=== PATIENT | male | born 1945 | race Caucasian/White ===

== ENCOUNTER → 2017-07-12 | Outpatient (CLI) | payer BC ==
[~2017-07-12] MED LIST: ALBU18002 INH; ASPI81TA28 PO; FEXO1TAB49 PO; FLVHFA110 INH; METO-217 PO; NTRGSL/4 UT; PANT40TA PO; PRAS1TAB6 PO; ROSU5TAB PO
--- NOTE | 2017-07-12 13:30 | DIAGNOSTIC IMAGING REPORT ---
CHEST 2 VIEWS ROUTINE HISTORY: 72 years-old Male COUGH acute cough with coronary arterial disease. Asthma COMPARISON: Chest radiograph 01/26/2013 TECHNIQUE: Frontal and lateral views of the chest FINDINGS: Cardiac silhouette is again mildly enlarged. Atherosclerosis of the aorta. No pneumothorax or pleural effusion. Unchanged subsegmental course bibasilar opacities suggest chronic interstitial changes. No lobar airspace consolidation. Mild right hemidiaphragmatic elevation. Lungs are mildly hyperinflated. Degenerative changes of the spine and shoulders. IMPRESSION: Mild hyperinflation without acute cardiopulmonary process. The above report was generated using voice recognition software. It may contain grammatical, syntax or spelling errors. Electronically signed by: Pedro Ann M.D. 07/12/2017 1:29 PM Dictated Date/Time: 07/12/2017 1:27 PM
== END | disposition home or self-care (01) ==
LOC: C.RAD 12:45
PROVIDERS: ATTEND Family Medicine
DX: R05 Cough (principal); J45.991 Cough variant asthma; I25.10 Atherosclerotic heart disease of native coronary artery without angina pectoris

== ENCOUNTER 2017-09-18 03:42 | Emergency (ER) | payer BC ==
[~2017-09-18] VITALS: Ht 165.1 cm; Wt 97.4 kg
[~2017-09-18 03:42] MED LIST changes: -ALBU18002 INH; -ASPI81TA28 PO; -FEXO1TAB49 PO; -FLVHFA110 INH; -NTRGSL/4 UT; -PANT40TA PO
[2017-09-18 03:51] VITALS: Ht 165.1 cm; Wt 97.4 kg
[2017-09-18] MEDS ORDERED: SODIUM CHLORIDE 0.9% 500ML 500 ML IV STA (04:04)
[2017-09-18] MEDS ORDERED: ONDANSETRON INJ 2 MG/ML 2 ML VIAL IV STA (04:04)
[2017-09-18] MEDS ORDERED: MoRPHine SULFATE 4 MG/ML 1 ML CARP\\VIAL IV STA ×2 (04:04→06:52)
[2017-09-18 04:19] LABS: BASO % 0.1 %; BASO ABS # 0.02 K/uL (0-0.2); EOS ABS # 0.16 K/uL (0-0.5); HEMATOCRIT 47.3 % (42-52); HEMOGLOBIN 17.3 g/dL (14.0-18.0); IG# 0.05 K/uL (0.00-0.02); LYMPH % 14.5 %; LYMPH ABS # 2.29 K/uL (1.2-3.4); MEAN CELL VOLUME 90.3 fL (80-100); MEAN CORPUSCULAR HGB CONC 36.6 g/dl (32-36); MEAN PLATELET VOLUME 10.3 fL (7.4-10.4); MONO % 10.9 %; MONO ABS # 1.73 K/uL (0.11-0.59); NEUT % 73.2 %; NEUT ABS # 11.59 K/uL (1.4-6.5); PLATELET COUNT 165 K/uL (130-400); RED CELL DISTRIBUTION WIDTH CV 12.7 % (11.5-14.5); WHITE BLOOD COUNT 15.84 K/uL (4.8-10.8)
[2017-09-18 04:37] LABS: ALBUMIN 3.5 gm/dl (3.4-5.0); CALCIUM 8.7 mg/dl (8.5-10.1); CREATININE 1.03 mg/dl (0.60-1.40); POTASSIUM 3.6 mmol/L (3.5-5.1)
[2017-09-18 04:39] LABS: TOTAL PROTEIN 7.8 gm/dl (6.4-8.2)
[2017-09-18] MEDS ORDERED: METO25TA3 PO (04:51)
[2017-09-18] MEDS ORDERED: AMPICILLIN/SULBACTAM SOD INJ 3,000 MG in SODIUM CHLORIDE 0.9% 100ML 100 ML IV ONE (06:30)
[2017-09-18] MEDS ORDERED: AMOX875T PO (06:37)
[2017-09-18] MEDS ORDERED: HYDR-5688 PO (06:37)
--- NOTE | 2017-09-18 06:41 | EMERGENCY ROOM VISIT NOTE ---
History Report prepared by Kevin: Shiva Celaya Under the Supervision of: Dr. Winsome Dunham M.D. First contact with patient: 03:51 Chief Complaint: ABDOMINAL PAIN Stated Complaint: ABD PAIN History of Present Illness The patient is a 72 year old male who presents to the Emergency Room with complaints of persistent lower abdominal pain beginning yesterday. The patient' s pain radiates into his penis. He states that he urinated a small amount shortly prior to arrival, but hadn't urinated for a while before that. His pain is worsened with laying on his back. The patient has a history of urinary retention occurring once following a surgery. He has no history of kidney stone. He denies any penile or scrotal swelling or rashes. Source of History: patient Onset: Yesterday Position: abdomen (lower) Timing: other (persistent) Modifying Factors (Worsening): other (laying on back) Note: The patient denies any penile or scrotal swelling or rashes. He also complains of pain radiating into his penis. Review of Systems See HPI for pertinent positives & negatives. A total of 10 systems reviewed and were otherwise negative. Past Medical & Surgical Medical Problems: (1) Finger laceration (2) HTN (hypertension) Surgical Problems: (1) H/O heart artery stent Family History No pertinent family history stated. Social History Smoking Status: Never Smoker Marital Status: Housing Status: lives with significant other Occupation Status: employed Current/Historical Medications Scheduled Amoxicillin & Pot Clavulanate (Augmentin 875-125 mg), 875 MG PO BID Aspirin (Aspirin Ec), 81 MG PO DAILY Fexofenadine Hcl (Sheri Allergy), 180 MG PO DAILY Metoprolol Succ (Toprol Xl) (Toprol-Xl), 25 MG PO DAILY Nitroglycerin (Nitrostat), 0.4 MG UT PRN Pantoprazole (Protonix), 40 MG PO DAILY Prasugrel Hcl (Effient), 10 MG PO DAILY Scheduled PRN Albuterol Sulfate (Proair Respiclick), 2 PUFFS INH DAILY PRN for SOB/Wheezing Fluticasone Propionate (Flovent Hfa), 2 PUFFS INH BID PRN for SOB/Wheezing Hydrocodone/Acetaminophen 5MG/325MG ([place] 5MG/325MG), 1 TABLET PO Q6 PRN for Pain Allergies Coded Allergies: Ciprofloxacin (Unverified Allergy, Unknown, ?, 09/18/17) NSAIDs (Unverified Allergy, Unknown, ?, 09/18/17) Physical Exam Vital Signs Date Time Temp Pulse Resp B/P (MAP) Pulse Ox O2 Delivery O2 Flow Rate FiO2 09/18/17 07:55 37.6 92 20 120/82 93 09/18/17 07:38 37.6 92 20 120/82 89 Room Air 09/18/17 07:23 94 09/18/17 06:50 90 20 111/48 94 Room Air 09/18/17 05:37 89 09/18/17 05:34 88 18 161/84 96 Room Air 09/18/17 03:51 37.6 99 20 113/77 94 Room Air Physical Exam Vital signs reviewed. General: Well-appearing male, in no significant distress. HEENT: No scleral icterus, PERRLA, neck supple. Atraumatic. Cardiovascular: Regular rate and rhythm, no extra sounds. Pulmonary: Clear to auscultation bilaterally, normal work of breathing. Abdomen: Obese, tender to palpation in the suprapubic region. No CVA tenderness. Soft, nondistended, positive bowel sounds. Musculoskeletal: Atraumatic, no peripheral edema. Neurologic: Patient awake alert and oriented x 3 Skin: Warm, dry, no rash Medical Decision & Procedures ER Provider Diagnostic Interpretation: Radiology results as stated below per my review and radiologist interpretation: CT ABDOMEN & PELVIS Without Contrast: Liver, gallbladder, spleen, pancreas, and adrenal glands are unremarkable. No hydronephrosis or perinephric stranding. No evidence of radiopaque stones. There is a 7.5 cm exophytic cyst arising from the lateral midpole of the right kidney. There is a 2 cm cortical cyst in the medial lower pole of the right kidney. Normal appendix. No bowl obstruction. There is colonic diverticulosis with acute diverticulitis of the sigmoid colon characterized by wall thickening and pericolic fat stranding. There are a few foci of gas adjacent to the inflamed sigmoid colon which likely represent gas within diverticula. No convincing evidence of free air. No diverticular abscess. Urinary bladder demonstrates mild reactive inflammatory changes along its posterior wall. The prostate is unremarkable. There are no acute osseous findings. Laboratory Results 09/18/17 04:00 Red Blood Count 5.24, Mean Corpuscular Volume 90.3, Mean Corpuscular Hemoglobin 33.0, Mean Corpuscular Hemoglobin Concent 36.6, Mean Platelet Volume 10.3, Neutrophils (%) (Auto) 73.2, Lymphocytes (%) (Auto) 14.5, Monocytes (%) (Auto) 10.9, Eosinophils (%) (Auto) 1.0, Basophils (%) (Auto) 0.1, Neutrophils # (Auto ) 11.59, Lymphocytes # (Auto) 2.29, Monocytes # (Auto) 1.73, Eosinophils # (Auto ) 0.16, Basophils # (Auto) 0.02 09/18/17 04:00 Test 09/18/17 04:00 White Blood Count 15.84 K/uL (4.8-10.8) Red Blood Count 5.24 M/uL (4.7-6.1) Hemoglobin 17.3 g/dL (14.0-18.0) Hematocrit 47.3 % (42-52) Mean Corpuscular Volume 90.3 fL (80-100) Mean Corpuscular Hemoglobin 33.0 pg (25-34) Mean Corpuscular Hemoglobin Concent 36.6 g/dl (32-36) Platelet Count 165 K/uL (130-400) Mean Platelet Volume 10.3 fL (7.4-10.4) Neutrophils (%) (Auto) 73.2 % Lymphocytes (%) (Auto) 14.5 % Monocytes (%) (Auto) 10.9 % Eosinophils (%) (Auto) 1.0 % Basophils (%) (Auto) 0.1 % Neutrophils # (Auto) 11.59 K/uL (1.4-6.5) Lymphocytes # (Auto) 2.29 K/uL (1.2-3.4) Monocytes # (Auto) 1.73 K/uL (0.11-0.59) Eosinophils # (Auto) 0.16 K/uL (0-0.5) Basophils # (Auto) 0.02 K/uL (0-0.2) RDW Standard Deviation 42.0 fL (36.4-46.3) RDW Coefficient of Variation 12.7 % (11.5-14.5) Immature Granulocyte % (Auto) 0.3 % Immature Granulocyte # (Auto) 0.05 K/uL (0.00-0.02) Anion Gap 7.0 mmol/L (3-11) Est Creatinine Clear Calc Drug Dose 68.5 ml/min Estimated GFR () 83.1 Estimated GFR (Non- 71.7 BUN/Creatinine Ratio 19.8 (10-20) Calcium Level 8.7 mg/dl (8.5-10.1) Total Bilirubin 1.0 mg/dl (0.2-1) Direct Bilirubin 0.2 mg/dl (0-0.2) Aspartate Amino Transf (AST/SGOT) 25 U/L (15-37) Alanine Aminotransferase (ALT/SGPT) 49 U/L (12-78) Alkaline Phosphatase 65 U/L (45-117) Total Protein 7.8 gm/dl (6.4-8.2) Albumin 3.5 gm/dl (3.4-5.0) Laboratory results per my review. Medications Administered Medications (Trade) Dose Ordered Sig/Chava Route Start Time Stop Time Status Last Admin Dose Admin Sodium Chloride 500 ml @ 999 mls/hr Q31M STAT IV 09/18/17 04:04 09/18/17 04:34 DC 09/18/17 04:04 999 MLS/HR Morphine Sulfate (MoRPHine SULFATE INJ) 4 mg NOW STAT IV 09/18/17 04:04 09/18/17 04:05 DC 09/18/17 04:17 4 MG Ondansetron HCl (Zofran Inj) 4 mg NOW STAT IV 09/18/17 04:04 09/18/17 04:05 DC 09/18/17 04:17 4 MG Ampicillin Sodium/ Sulbactam Sodium 3000 mg/Sodium Chloride 108 ml @ 200 mls/hr ONE ONCE IV 09/18/17 06:30 09/18/17 07:02 DC 09/18/17 06:47 200 MLS/HR Morphine Sulfate (MoRPHine SULFATE INJ) 4 mg NOW STAT IV 09/18/17 06:52 09/18/17 06:53 DC 09/18/17 06:57 4 MG ED Course 0359: Past medical records reviewed. The patient was evaluated in room B5. A complete history and physical examination was performed. 0404: Ordered Zofran Inj 4 mg IV, Morphine Sulfate 4 mg IV, Sodium Chloride 500 ml @ 999 mls/hr IV. 0630: Ordered Ampicillin Sodium/Sulbactam Sodium 3000 mg/Sodium Chloride 108 ml @ 200 mls/hr IV. 0635: Upon reevaluation, the patient appeared to have improvement of his symptoms. I discussed findings with him. He verbalized agreement of the treatment plan. The patient was discharged home. Medical Decision Differential diagnosis: Etiologies such as appendicitis, diverticulitis, PUD, biliary pathology, UTI, pancreatitis, obstruction, mesenteric ischemia, aortic pathology, infections, inflammatory bowel disease, renal colic, as well as others were entertained. This pt was evaluated and appeared to be in no distress. IV access was obtained and lab work was drawn. Pt was medicated with IV NSS, IV morphine and zofran. CT scan of abd and pelvis reveals acute diverticulitis. Pt was medicated IV unasyn 3 gm. Pt required a second dose of morphine for pain. He was d/c on Augmentin po x 7 days and norco prn. Pt was asked to f/u with his PCP this week and return to the ED for worsening of symptoms or any medical concerns. Medication Reconcilliation Current Medication List: was personally reviewed by me Blood Pressure Screening Patient's blood pressure: Normal blood pressure Blood pressure disposition: Did not require urgent referral Impression Primary Impression: Diverticulitis Scribe Attestation The scribe's documentation has been prepared under my direction and personally reviewed by me in its entirety. I confirm that the note above accurately reflects all work, treatment, procedures, and medical decision making performed by me. Departure Information Dispostion Home / Self-Care Prescriptions Amoxicillin & Pot Clavulanate (Augmentin 875-125 mg) 1 Tab Tab 875 MG PO BID for 7 Days, TAB Prov: Winsome Dunham M.D. 09/18/17 Hydrocodone/Acetaminophen 5MG/325MG ([place] 5MG/325MG) Tab 1 TABLET PO Q6 Y for Pain, #14 TAB Prov: Winsome Dunham M.D. 09/18/17 Referrals Kurtis Carrasco M.D. (PCP) Forms Call Back Authorization, HOME CARE DOCUMENTATION FORM, IMPORTANT VISIT INFORMATION Patient Instructions My [facility] Additional Instructions Diagnosis: Diverticulitis Augmentin 875 mg twice daily for 7 days. [place] 1 tablet every 6 hours as needed for severe pain. Do not drive or take Tylenol with this medication. Please drink plenty of clear fluids. Maintain a bland diet for the next several days and then advance slowly as tolerated. Follow-up with her primary care physician within the next 7-10 days for reevaluation. Return to the ER for worsening of symptoms or any medical concerns.
--- NOTE | 2017-09-18 07:40 | DIAGNOSTIC IMAGING REPORT ---
ABD/PELVIS NO IV OR ORAL CONT CLINICAL HISTORY: 72 years-old Male presenting with kidney stone. TECHNIQUE: Multidetector CT of the abdomen and pelvis was performed without the use of intravenous contrast. IV contrast: None. A dose lowering technique was used consistent with the principles of ALARA (as low as reasonably achievable). COMPARISON: None. CT DOSE (mGy.cm): The estimated cumulative dose is 843.41 mGy.cm. FINDINGS: Manager Materials Management topogram: Unremarkable. Lung bases: Minimal basilar opacities, likely atelectasis. Coronary artery calcification. Normal heart size. No pericardial or pleural effusion. 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 Density consistent with hepatic steatosis. Biliary: No gross biliary ductal dilatation allowing for noncontrast technique. Gallbladder contains gallstones. Pancreas: Normal noncontrast appearance. Spleen: Nonnormal noncontrast appearance. Splenule noted. Adrenal glands: Normal noncontrast appearance. Kidneys and ureters: Prominent exophytic water density well-defined ovoid 8.6 cm lesion arising from the interpolar region of the right kidney likely cyst. Smaller cysts suspected at the right lower pole. These are incompletely evaluated in the absence of intravenous contrast. No nephrolithiasis. No hydronephrosis. Ureters normal. Bladder: Mild circumferential bladder wall thickening allowing for underdistention, likely secondary. Pelvic organs: Prostate and seminal vesicles normal. Bowel: Diverticulosis of the descending and sigmoid colon. Focal wall thickening of the rectosigmoid junction with extensive pericolonic fat stranding. No adjacent fluid collection or convincing evidence of extraluminal gas. Significant peritoneal thickening along the peritoneal reflection as well as fascial thickening along the mesorectal fat. No bowel obstruction. The appendix is normal. Small hiatal hernia. Peritoneal cavity: No free fluid or intraperitoneal gas. Lymph nodes: Numerous subcentimeter retroperitoneal lymph nodes likely reactive. Vasculature: Atherosclerosis of the normal caliber abdominal aorta. Abdominal wall: Diastasis of the rectus abdominis. Postsurgical changes of right inguinal hernia repair. Musculoskeletal: Degenerative changes of the spine. IMPRESSION: 1. Findings consistent with acute uncomplicated diverticulitis at the rectosigmoid junction. No adjacent abscess or free gas. A follow-up sigmoidoscopy/colonoscopy is recommended after treatment to ensure resolution given the overlapping appearance of diverticulitis with neoplasm. No lymphadenopathy or other evidence to suggest neoplasm. 2. Mild circumferential bladder wall thickening is likely secondarily reactive due to adjacent inflammatory change. Electronically signed by: Malcom Jamil M.D. 09/18/2017 7:39 AM Dictated Date/Time: 09/18/2017 7:30 AM
[2017-09-18 07:55] VITALS: BP 120/82; PULSE 92; TEMP 37.6; O2SAT 93
[2018-02-24] MEDS ORDERED: ASPI81TA28 PO (13:33)
[2018-02-24] MEDS ORDERED: FLVHFA110 INH (13:33)
[2018-02-24] MEDS ORDERED: PANT40TA PO (13:33)
[2018-02-24] MEDS ORDERED: FEXO1TAB49 PO (13:33)
[2018-02-24] MEDS ORDERED: ALBU18002 INH (13:33)
[2018-02-24] MEDS ORDERED: NTRGSL/4 UT (13:34)
[2018-02-24] MEDS ORDERED: METO50TA8 PO (20:11)
[2018-02-24] MEDS ORDERED: TRIA1SPR4 NAE (20:11)
[2018-02-27] MEDS ORDERED: CEFD1CAP14 PO (09:12)
== END 2017-09-18 07:57 | disposition home or self-care (01) ==
LOC: C.EDB 03:43
DX: K57.32 Diverticulitis of large intestine without perforation or abscess without bleeding (principal); K57.30 Diverticulosis of large intestine without perforation or abscess without bleeding; I10 Essential (primary) hypertension; Z95.5 Presence of coronary angioplasty implant and graft; Z79.82 Long term (current) use of aspirin

== ENCOUNTER 2019-08-07 14:16 | Inpatient (IN) ==
[2019-08-07] MEDS ORDERED: SODIUM CHLORIDE 0.9% 500 ML IV ONE (14:49)
--- NOTE | 2019-08-07 15:14 | XRay Report ---
XR chest 1V portable HISTORY: 74 years-old Male Chest Pain acute atypical chest pain COMPARISON: Chest radiograph 02/24/2018 TECHNIQUE: Portable AP view of the chest FINDINGS: Cardiac silhouette is enlarged, unchanged. Chronic right hemidiaphragmatic elevation. Patchy asymmetr ic right lung base opacities. No pneumothorax or overt pulmonary edema. No large pleural effusion. Mi nimal left lung base atelectasis. Degenerative changes of the shoulders and spine. IMPRESSION: 1. Cardiomegaly without overt pulmonary edema. 2. Unchanged right hemidiaphragmatic elevation with asymmetric right lung base opacities suggestive o f atelectasis versus pneumonia. The above report was generated using voice recognition software. It may contain grammatical, syntax o r spelling errors. Electronically signed by: Pedro Ann M.D. 08/07/2019 3:13 PM
[2019-08-07] MEDS ORDERED: ALBUT/IPRATROP 3MG/0.5MG NEB 3 ML VIAL NEB STA (15:28)
[2019-08-07] MEDS ORDERED: DEXAMETHASONE SOD PHOSPHATE 10 MG in SYRINGE 0 ML IV STA (15:28)
[2019-08-07] MEDS ORDERED: guaiFENesin 600 MG TABCR PO STA (15:28)
[2019-08-07 15:40] LABS: Hematocrit (blood only) 43.7 % (42-52); Hemoglobin 15.5 g/dL (14.0-18.0); Mean Corpuscular Hemoglobin 31.9 pg (25-34); Mean Corpuscular Hgb Conc 35.5 g/dL (32-36); Mean Corpuscular Volume 89.9 fL (80-100); Mean Platelet Volume 9.5 fL (7.4-10.4); Platelet Count 263 K/uL (130-400); RDW Coefficient of Variation 13.3 % (11.5-14.5); RDW Standard Deviation 43.7 fL (36.4-46.3); Red Blood Count 4.86 M/uL (4.7-6.1); White Blood Count 33.84 K/uL (4.8-10.8)
[2019-08-07 15:42] LABS: Basophils # (auto) 0.03 K/uL (0-0.2); Basophils % (auto) 0.1 %; Immature Granulocytes # (auto) 0.17 K/uL (0.00-0.02); Immature Granulocytes % (auto) 0.5 %; Lymphocytes # (auto) 2.47 K/uL (1.2-3.4); Lymphocytes % (auto) 7.3 %; Monocytes # (auto) 2.92 K/uL (0.11-0.59); Monocytes % (auto) 8.6 %; Neutrophils # (auto) 28.25 K/uL (1.4-6.5); Neutrophils % (auto) 83.5 %
[2019-08-07] MEDS ORDERED: DEXAMETHASONE **PF** INJ 10 MG/ML VIAL ONE (15:43)
[2019-08-07 15:45] LABS: Alanine Aminotransferase 33 U/L (12-78); Albumin Level 2.7 gm/dl (3.4-5.0); Aspartate Aminotransferase 22 U/L (15-37); BUN Creatinine Ratio 21.8 (10-20); Blood Urea Nitrogen 21 mg/dl (7-18); Carbon Dioxide 21 mmol/L (21-32); Chloride 98 mmol/L (98-107); Creatinine Clr Calc Pharmacy 69.8 ml/min; Est GFR (African American) 89.3; Glucose 120 mg/dl (70-99); Lipase 63 U/L (73-393); Magnesium 2.2 mg/dl (1.8-2.4); Potassium 3.7 mmol/L (3.5-5.1); Sodium 130 mmol/L (136-145)
[2019-08-07] MEDS ORDERED: VANCOMYCIN HCL 1,750 MG in SODIUM CHLORIDE 0.9% 500 ML IV ONE (15:45)
[2019-08-07] MEDS ORDERED: VANCOMYCIN CONSULT ACTIVE PRN (15:45)
[2019-08-07] MEDS ORDERED: PIPERACILL/TAZOBAC CONSULT ACTIVE PRN (15:45)
[2019-08-07] MEDS ORDERED: PIPERACILLIN/TAZOBACTAM 4.5 GM/120 ML BAG IV ONE (15:45)
[2019-08-07 15:50] LABS: Albumin Globulin Ratio 0.5 (0.9-2); Alkaline Phosphatase 89 U/L (45-117); Bilirubin,Total 1.6 mg/dl (0.2-1); Globulin 5.2 gm/dl (2.5-4.0); NT Pro B Type Natriuretic Pept 211 pg/ml (0-900); Phosphorus 2.4 mg/dl (2.5-4.9); Total Protein 7.9 gm/dl (6.4-8.2); Troponin I < 0.015 ng/ml (0-0.045)
[2019-08-07] MEDS ORDERED: OPTIRAY 320 125ml IV PRN (16:26)
[2019-08-07] MEDS ORDERED: SODIUM CHLORIDE 0.9% 1000ML 1,000 ML IV ONE (16:32)
[2019-08-07 16:42] LABS: Influenza A virus by PCR Neg for Influ A (Neg); Influenza B virus by PCR Neg for Influ B (Neg)
--- NOTE | 2019-08-07 16:53 | CT Scan Report ---
CT angio chest PE protocol CLINICAL HISTORY: 74 years-old Male presenting with extremely short of breath, atypical chest pain. TECHNIQUE: Multidetector CT angiography of the chest was performed after administration of intravenou s contrast. 3-D volumetric and/or maximum intensity projection (MIP) images were subsequently reconst ructed for review. IV contrast: 118 mL of Optiray 320. One or more dose lowering techniques were used consistent with the principles of ALARA (as low as reasonably achievable), including automatic expos ure control, mA or kV adjustment to individual patient size, and/or use of iterative reconstruction. COMPARISON: Chest x-ray from earlier today and CT of abdomen and pelvis from 09/18/2017. CT DOSE (mGy.cm): The estimated cumulative dose is 485.91 mGycm. FINDINGS: Chemical Processing Technician topogram: Right mid to basilar opacity. Pulmonary vasculature: The study is suboptimal for the assessment of the pulmonary vascular tree secondary to timing of the contrast bolus. No filling defect within the pulmonary arteries to suggest embolus. Main pulmonary ar kim is not enlarged. No flattening of the interventricular septum. No intracardiac filling defect. N o reflux of contrast into the hepatic veins. Remaining chest: Soft tissues: Normal thyroid and thoracic inlet. Several enlarged right internal mammary and right ca rdiophrenic angle lymph nodes are apparent. These are subcentimeter though highly atypical. Atheroscl erosis of the aorta. Normal heart size. Coronary artery calcification. Moderate right pleural effusio n, which is also present within the fissures. This may in part be loculated. No left pleural effusion or pericardial effusion. Pneumobilia noted, new since 2017. Lungs and airways: No pneumothorax. Central airways patent. Pulmonary arteries mildly enlarged relati ve to adjacent bronchi. Mild interlobular septal thickening more prominently in the right lung. Exten sive volume loss and consolidation likely related to passive atelectasis in the left lower lobe. Pred ominantly subpleural reticular opacities in the aerated portion of the right lung. Limited nodular in filtrate in the periphery of the right upper lobe. There is also limited subpleural reticular and shayna undglass opacity in the subpleural portions of the superior segment of the lingula. Lesser passive at electasis of the left lower lobe. Trace emphysema may be present. Musculoskeletal: Degenerative changes of the spine. IMPRESSION: 1. No evidence of pulmonary embolus. 2. Pathologic right internal mammary and right cardiophrenic angle/pericardial lymph nodes. Though t hese are subcentimeter, enlargement of lymph nodes in these distributions is highly concerning for un derlying malignancy. Correlate with a known primary malignancy. 3. Moderate right pleural effusion, which may in part be loculated. Consider fluid evaluation. 4. Extensive associated atelectasis in the right lung. 5. No clear underlying mass is appreciated. The appearance is also not typical for lobar pneumonia t jennifer underlying infection is difficult to exclude. Electronically signed by: Malcom Jamil M.D. 08/07/2019 4:52 PM
[2019-08-07] MEDS ORDERED: ALBUT/IPRATROP 3MG/0.5MG NEB 3 ML VIAL NEB ONE (17:27)
--- NOTE | 2019-08-07 17:33 | Emergency Department Note ---
Entered by Hoda Maier acting as a scribe for History of Present Illness General Chief complaint: Shortness of Breath/Dyspnea Stated complaint: TROUBLE BREATHING/CHEST PAIN Time Seen by Provider: 08/07/19 14:49 Source: patient History of Present Illness Onset (ago): day(s) 2 Location: chest Severity: similar to prior episodes Pain Consistency: + constant Maximum Pain Intensity: 8 Quality: + other (shortness of breath) Exacerbated By: + other (laying down ) Associated symptoms: + chest pain (and chest tightness), + cough (bringing up blood ), + weakness and + other (+back pain; +fatigued; +chills; -burning sensation to chest ) The patient is a 74 year old male who presents to the Emergency Room with complaints of constant shortness of breath beginning 2 days ago. The patient also reports of a cough, and he notes that he at times will bring up blood with his cough. The patient states the cough began at 1900 on 08/05/19, and the patient states he coughed for 7 hours straight after it began. The patient states the cough stayed constant during that time, and he notes he was only able to get to sleep that night once the cough subsided. The patient states he has been dealing with a nagging cough over the past 10 years. The patient states the chronic cough is due to having very thick mucus stuck in the back of his throat that is very difficult to bring up. The next morning, the patient reports he woke up with chest tightness and back pain that the patient attributed to the coughing from the prior night. The patient also reports of episodes of sharp pain to his chest over the last two days. The patient denies a burning sensation to his chest. The patient states he took Advil at the time, and he states it helped relieve the pain. However, the patient states he woke up today feeling generally weak and fatigued. The patient also notes his shortness of breath is worse upon laying down, as he states he had to sleep sitting upright last night. The patient also states he has experienced chills the last few nights that go down his right shoulder and arm. The patient states the chills occurred even when he was sleeping in front of a fireplace. The patient denies taking his temperature during the duration of his symptoms. The patient states he does not take any water pills, but he notes he takes metoprolol. The patient states he is not a smoker, and he states he has never been on oxygen. The patient reports his present symptoms resemble the symptoms he experienced with a past pneumonia. Home Medications Home Medications Medication Instructions Recorded Confirmed Type albuterol sulfate 90 mcg/actuation 2 puffs INHALATION Q4H PRN gm 06/12/19 08/07/19 History aerosol inhaler ezetimibe 10 mg tablet 10 mg PO DAILY #90 tab 06/12/19 08/07/19 History fexofenadine 180 mg tablet 180 mg PO DAILY PRN tab 06/12/19 08/07/19 History nitroglycerin 0.4 mg sublingual 0.4 mg SL Q5M PRN #1 tab 06/12/19 08/07/19 History tablet famotidine 20 mg tablet 20 mg PO DAILY 07/26/19 08/07/19 History ipratropium bromide 0.03 % nasal 2 sprays INTNAS BID 07/26/19 08/07/19 History spray irbesartan 150 mg tablet 150 mg PO DAILY 07/26/19 08/07/19 History rosuvastatin 5 mg tablet 5 mg PO WK 07/26/19 08/07/19 History fluticasone propionate [Flovent 1 - 2 puff INHALATION UD PRN 08/07/19 08/07/19 History HFA] ibuprofen [Advil] 200 mg PO Q6H PRN 08/07/19 08/07/19 History metoprolol succinate [Toprol XL] 12.5 mg PO DAILY 08/07/19 08/07/19 History Allergies Allergy/AdvReac Type Severity Reaction Status Date / Time NSAIDS (Non-Steroidal Allergy Mild ? Verified 07/26/19 14:52 Anti-Inflamma Fxukmcf-Sjn-Zmr Reductase AdvReac Intermediate LEG Verified 07/26/19 14:52 Inhibitor CRAMPS, FLUSHED Cipro AdvReac Mild GI SYMPTOMS Verified 02/24/18 21:56 ciprofloxacin AdvReac Mild GI SYMPTOMS Verified 07/26/19 14:52 ranitidine AdvReac Mild TIRED Verified 07/26/19 14:52 aspirin AdvReac Unknown Verified 08/07/19 16:34 Past Med/Surg History Medical History Ascending cholangitis Elevated bilirubin Finger laceration (Resolved) HTN (hypertension) (Chronic) Pneumonia Surgical History H/O heart artery stent (Chronic) Family History Father , Alcohol abuse led to his at 69. No problems noted. Mother , at 96 and was functional up to her . No problems noted. 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 and A total of 10 systems reviewed and were otherwise negative Physical Exam Vital Signs Vital Signs - 24 hr 08/07/19 14:28 08/07/19 14:29 08/07/19 15:07 Temperature 36.6 C Temperature Source Oral Pulse Rate 97 H 110 H Pulse Rate [Right Finger] Pulse Rate from SpO2 Sensor 97 H Respiratory Rate 39 H 22 Respiratory Effort / Characteristics Non-Labored Spontaneous Respiratory Depth Normal Blood Pressure 92/56 L 156/95 H Blood Pressure Mean 70 115 Blood Pressure Position Sitting Pulse Oximetry 95 92 94 Oxygen Delivery Method Nasal Cannula Room Air Nasal Cannula Oxygen Flow Rate 3 2 Sepsis Recent Fever Within 48 Hours No Sepsis Action Taken by Nursing No Action Required 08/07/19 15:12 08/07/19 15:30 08/07/19 15:42 Temperature Temperature Source Pulse Rate 98 H 96 H Pulse Rate [Right Finger] 94 H Pulse Rate from SpO2 Sensor 98 H 96 H Respiratory Rate 25 H 27 H 26 H Respiratory Effort / Characteristics Spontaneous Short of Breath Respiratory Depth Blood Pressure Blood Pressure Mean Blood Pressure Position Pulse Oximetry 95 95 95 Oxygen Delivery Method Nasal Cannula Nasal Cannula Nasal Cannula Oxygen Flow Rate 3 3 3 Sepsis Recent Fever Within 48 Hours Sepsis Action Taken by Nursing 08/07/19 15:51 08/07/19 15:52 08/07/19 16:00 Temperature Temperature Source Pulse Rate 94 H 94 H 99 H Pulse Rate [Right Finger] Pulse Rate from SpO2 Sensor 94 H 95 H 99 H Respiratory Rate 21 26 H 23 Respiratory Effort / Characteristics Respiratory Depth Blood Pressure 129/86 145/113 H Blood Pressure Mean 101 121 Blood Pressure Position Pulse Oximetry 95 95 95 Oxygen Delivery Method Nasal Cannula Nasal Cannula Nasal Cannula Oxygen Flow Rate 3 2 2 Sepsis Recent Fever Within 48 Hours Sepsis Action Taken by Nursing 08/07/19 16:01 08/07/19 16:34 08/07/19 17:00 Temperature Temperature Source Pulse Rate 98 H 96 H 95 H Pulse Rate [Right Finger] Pulse Rate from SpO2 Sensor 99 H 96 H 95 H Respiratory Rate 22 24 20 Respiratory Effort / Characteristics Respiratory Depth Blood Pressure 132/86 Blood Pressure Mean 101 Blood Pressure Position Pulse Oximetry 96 95 92 Oxygen Delivery Method Nasal Cannula Nasal Cannula Nasal Cannula Oxygen Flow Rate 2 2 2 Sepsis Recent Fever Within 48 Hours Sepsis Action Taken by Nursing 08/07/19 17:01 08/07/19 17:30 08/07/19 17:31 Temperature Temperature Source Pulse Rate 94 H 91 H 89 Pulse Rate [Right Finger] Pulse Rate from SpO2 Sensor 94 H 91 H 89 Respiratory Rate 22 28 H 25 H Respiratory Effort / Characteristics Respiratory Depth Blood Pressure 132/82 Blood Pressure Mean 111 Blood Pressure Position Pulse Oximetry 92 94 94 Oxygen Delivery Method Nasal Cannula Nasal Cannula Nasal Cannula Oxygen Flow Rate 2 2 2 Sepsis Recent Fever Within 48 Hours Sepsis Action Taken by Nursing 08/07/19 17:41 08/07/19 18:00 08/07/19 18:01 Temperature Temperature Source Pulse Rate 92 H 92 H Pulse Rate [Right Finger] 92 H Pulse Rate from SpO2 Sensor 92 H 92 H Respiratory Rate 28 H 30 H 41 H Respiratory Effort / Characteristics Spontaneous Respiratory Depth Blood Pressure 153/90 H Blood Pressure Mean 107 Blood Pressure Position Pulse Oximetry 93 94 95 Oxygen Delivery Method Nasal Cannula Nasal Cannula Nasal Cannula Oxygen Flow Rate 3 2 2 Sepsis Recent Fever Within 48 Hours Sepsis Action Taken by Nursing 08/07/19 18:30 08/07/19 18:31 Temperature Temperature Source Pulse Rate 92 H 92 H Pulse Rate [Right Finger] Pulse Rate from SpO2 Sensor 92 H 91 H Respiratory Rate 36 H 30 H Respiratory Effort / Characteristics Respiratory Depth Blood Pressure 136/81 Blood Pressure Mean 103 Blood Pressure Position Pulse Oximetry 96 96 Oxygen Delivery Method Nasal Cannula Nasal Cannula Oxygen Flow Rate 2 2 Sepsis Recent Fever Within 48 Hours Sepsis Action Taken by Nursing GENERAL: Awake, alert, ill-appearing, in no distress HENT: Normocephalic, atraumatic. Oropharynx with dry mucous membranes and otherwise unremarkable. EYES: Normal conjunctiva. Sclera non-icteric. NECK: Supple. No nuchal rigidity. FROM. No JVD. RESPIRATORY: Mildly dyspneic. Scattered wheezes and rhonchi of right lung field. CARDIAC: Tachycardic rate, normal rhythm. Extremities warm and well perfused. Pulses equal. ABDOMEN: Soft, non-distended. No tenderness to palpation. No rebound or guar ding. No masses. RECTAL: Deferred. MUSCULOSKELETAL: Chest examination reveals no tenderness. The back is symmetrical on inspection without obvious abnormality. There is no CVA tenderness to palpation. No joint edema. LOWER EXTREMITIES: Calves are equal size bilaterally and non-tender. No edema. No discoloration. NEURO: Normal sensorium. No sensory or motor deficits noted. SKIN: No rash or jaundice noted. Course Course 1521: Past medical records reviewed. The patient was evaluated in room A4B. A complete history and physical exam was performed. 1718: I discussed the patient's case with Dr. Es Alaniz[facility]. Dr. Alaniz will evaluate the patient for further management. Consultations Consultation #1: I discussed the patient's case with Dr. Es Alaniz- [facility]. Dr. Alaniz will evaluate the patient for further management. Time: 17:18 Administered Medications Enoxaparin Sodium (Lovenox) 40 mg SQ Q24H [facility] Stop: 09/06/19 20:59 Last Admin: 08/07/19 20:54 Dose: 40 mg Documented by: [id number] Ceftriaxone Sodium (Rocephin) 1,000 mg in 50 mls @ 100 mls/hr IV DAILY@2100 [facility] Stop: 08/14/19 20:59 Last Infusion: 08/07/19 21:46 Dose: 0 mls/hr Documented by: [id number] Admin: 08/07/19 20:54 Dose: 100 mls/hr Documented by: [id number] Ioversol (Optiray 320 125ml) 118 ml IV ONCE PRN PRN Reason: Interaction Checking Stop: 08/11/19 16:25 Last Admin: 08/07/19 16:26 Dose: 1 ml Documented by: [id number] Discontinued Medications Albuterol (Duoneb) 3 ml NEB NOW STA Stop: 08/07/19 15:29 Last Admin: 08/07/19 15:42 Dose: 3 ml Documented by: [id number] Albuterol (Duoneb) 12 ml NEB ONE ONE Stop: 08/07/19 17:28 Last Admin: 08/07/19 17:41 Dose: 12 ml Documented by: [id number] Dexamethasone Sodium Phosphate (Decadron Pf) Confirm Administered Dose 10 mg .ROUTE .STK-MED ONE Stop: 08/07/19 15:44 Last Admin: 08/07/19 15:56 Dose: 10 mg Documented by: [id number] Guaifenesin (Mucinex) 600 mg PO NOW STA Stop: 08/07/19 15:29 Last Admin: 08/07/19 15:55 Dose: 600 mg Documented by: [id number] Sodium Chloride (Nss) 500 mls @ 999 mls/hr IV .Q31M ONE Stop: 08/07/19 15:19 Last Infusion: 08/07/19 15:51 Dose: 0 mls/hr Documented by: [id number] Admin: 08/07/19 15:20 Dose: 999 mls/hr Documented by: [id number] Dexamethasone Sodium Phosphate (10 mg/ Syringe) 2.5 mls @ 1 mls/min IV NOW STA Stop: 08/07/19 15:30 Last Admin: 08/07/19 15:56 Dose: Not Given Documented by: [id number] Piperacillin Sod/Tazobactam Sod (Zosyn) 4.5 gm in 120 mls @ 240 mls/hr IV NOW ONE Stop: 08/07/19 16:14 Last Infusion: 08/07/19 16:49 Dose: 0 mls/hr Documented by: [id number] Admin: 08/07/19 16:19 Dose: 240 mls/hr Documented by: [id number] Vancomycin HCl 1,750 mg/ (Sodium Chloride) 535 mls @ 200 mls/hr IV NOW ONE Stop: 08/07/19 18:25 Last Infusion: 08/07/19 21:06 Dose: 0 mls/hr Documented by: [id number] Admin: 08/07/19 17:09 Dose: 200 mls/hr Documented by: [id number] Sodium Chloride (Nss 1000ml) 1,000 mls @ 999 mls/hr IV .Q1H1M ONE Stop: 08/07/19 17:32 Last Infusion: 08/07/19 19:06 Dose: 0 mls/hr Documented by: [id number] Admin: 08/07/19 17:09 Dose: 999 mls/hr Documented by: [id number] Critical Care Time Critical Care Time: Yes Total Critical Care Time: 35 I have personally spent greater than 35 minutes of critical care time in the direct management of this patient. This includes bedside care, interpretation of diagnostic studies, and testing, discussion with consultants, patient, and family members, and other required patient management activities. This 35 minutes is in excess of all separately billable procedures. Medical Decision Making Differential Diagnosis Differential diagnosis: Etiologies such as infections, reactive airway disease, pneumonia, pneumothorax, COPD, CHF, cardiac ischemia, pulmonary embolism, musculoskeletal, gastrointestinal, as well as others were entertained. Medical Records Attestation: I reviewed the patient's medical records. Home Medications Current Medication List: was personally reviewed by me Laboratory Data Attestation: I reviewed the patient's lab results. Result diagrams: 08/07/19 15:04 08/07/19 15:04 Lab Results 08/07/19 08/07/19 08/07/19 Range/Units 15:04 15:04 15:45 WBC 33.84 H* (4.8-10.8) K/uL RBC 4.86 (4.7-6.1) M/uL Hgb 15.5 (14.0-18.0) g/dL Hct 43.7 (42-52) % MCV 89.9 (80-100) fL MCH 31.9 (25-34) pg MCHC 35.5 (32-36) g/dL RDW Std Deviation 43.7 (36.4-46.3) fL RDW Coeff of Carli 13.3 (11.5-14.5) % Plt Count 263 (130-400) K/uL MPV 9.5 (7.4-10.4) fL Immature Gran % (Auto) 0.5 % Neut % (Auto) 83.5 % Lymph % (Auto) 7.3 % [place] % (Auto) 8.6 % Eos % (Auto) 0.0 % Baso % (Auto) 0.1 % Immature Gran # (Auto) 0.17 H (0.00-0.02) K/uL Neut # (Auto) 28.25 H (1.4-6.5) K/uL Lymph # (Auto) 2.47 (1.2-3.4) K/uL [place] # (Auto) 2.92 H (0.11-0.59) K/uL Eos # (Auto) 0.00 (0-0.5) K/uL Baso # (Auto) 0.03 (0-0.2) K/uL Sodium 130 L (136-145) mmol/L Potassium 3.7 (3.5-5.1) mmol/L Chloride 98 (98-107) mmol/L Carbon Dioxide 21 (21-32) mmol/L Anion Gap 11.0 (3-11) BUN 21 H (7-18) mg/dl Creatinine 0.96 (0.6-1.4) mg/dl Est Cr Clr Drug Dosing 69.8 ml/min Est GFR ( Amer) 89.3 Est GFR (Non-Af Amer) 77.0 BUN/Creatinine Ratio 21.8 H (10-20) Glucose 120 H (70-99) mg/dl Lactate (0.4-2.0) mmol/L Calcium 10.0 (8.5-10.1) mg/dl Phosphorus 2.4 L (2.5-4.9) mg/dl Magnesium 2.2 (1.8-2.4) mg/dl Total Bilirubin 1.6 H (0.2-1) mg/dl AST 22 (15-37) U/L ALT 33 (12-78) U/L Alkaline Phosphatase 89 (45-117) U/L Troponin I < 0.015 (0-0.045) ng/ml NT-Pro-B Natriuret Pep 211 (0-900) pg/ml Total Protein 7.9 (6.4-8.2) gm/dl Albumin 2.7 L (3.4-5.0) gm/dl Globulin 5.2 H (2.5-4.0) gm/dl Albumin/Globulin Ratio 0.5 L (0.9-2) Lipase 63 L (73-393) U/L Influenza Type A (PCR) Neg for Influ A (Neg) Influenza Type B (PCR) Neg for Influ B (Neg) 08/07/19 08/07/19 Range/Units 16:16 18:16 WBC (4.8-10.8) K/uL RBC (4.7-6.1) M/uL Hgb (14.0-18.0) g/dL Hct (42-52) % MCV (80-100) fL MCH (25-34) pg MCHC (32-36) g/dL RDW Std Deviation (36.4-46.3) fL RDW Coeff of Carli (11.5-14.5) % Plt Count (130-400) K/uL MPV (7.4-10.4) fL Immature Gran % (Auto) % Neut % (Auto) % Lymph % (Auto) % [place] % (Auto) % Eos % (Auto) % Baso % (Auto) % Immature Gran # (Auto) (0.00-0.02) K/uL Neut # (Auto) (1.4-6.5) K/uL Lymph # (Auto) (1.2-3.4) K/uL [place] # (Auto) (0.11-0.59) K/uL Eos # (Auto) (0-0.5) K/uL Baso # (Auto) (0-0.2) K/uL Sodium (136-145) mmol/L Potassium (3.5-5.1) mmol/L Chloride (98-107) mmol/L Carbon Dioxide (21-32) mmol/L Anion Gap (3-11) BUN (7-18) mg/dl Creatinine (0.6-1.4) mg/dl Est Cr Clr Drug Dosing ml/min Est GFR ( Amer) Est GFR (Non-Af Amer) BUN/Creatinine Ratio (10-20) Glucose (70-99) mg/dl Lactate 2.1 H* 1.3 (0.4-2.0) mmol/L Calcium (8.5-10.1) mg/dl Phosphorus (2.5-4.9) mg/dl Magnesium (1.8-2.4) mg/dl Total Bilirubin (0.2-1) mg/dl AST (15-37) U/L ALT (12-78) U/L Alkaline Phosphatase (45-117) U/L Troponin I (0-0.045) ng/ml NT-Pro-B Natriuret Pep (0-900) pg/ml Total Protein (6.4-8.2) gm/dl Albumin (3.4-5.0) gm/dl Globulin (2.5-4.0) gm/dl Albumin/Globulin Ratio (0.9-2) Lipase (73-393) U/L Influenza Type A (PCR) (Neg) Influenza Type B (PCR) (Neg) Imaging Data Radiologist's Impression: Radiology results as stated below per my review and the radiologist's interpretation: XR chest 1V portable HISTORY: 74 years-old Male Chest Pain acute atypical chest pain COMPARISON: Chest radiograph 02/24/2018 TECHNIQUE: Portable AP view of the chest FINDINGS: Cardiac silhouette is enlarged, unchanged. Chronic right hemidiaphragmatic elevation. Patchy asymmetric right lung base opacities. No pneumothorax or overt pulmonary edema. No large pleural effusion. Minimal left lung base atelectasis. Degenerative changes of the shoulders and spine. IMPRESSION: 1. Cardiomegaly without overt pulmonary edema. 2. Unchanged right hemidiaphragmatic elevation with asymmetric right lung base opacities suggestive of atelectasis versus pneumonia. The above report was generated using voice recognition software. It may contain grammatical, syntax or spelling errors. Electronically signed by: Pedro Ann M.D. 08/07/2019 3:[address] angio chest PE protocol CLINICAL HISTORY: 74 years-old Male presenting with extremely short of breath, atypical chest pain. TECHNIQUE: Multidetector CT angiography of the chest was performed after administration of intravenous contrast. 3-D volumetric and/or maximum intensity projection (MIP) images were subsequently reconstructed for review. IV contrast: 118 mL of Optiray 320. One or more dose lowering techniques were used consistent with the principles of ALARA (as low as reasonably achievable), including automatic exposure control, mA or kV adjustment to individual patient size, and/or use of iterative reconstruction. COMPARISON: Chest x-ray from earlier today and CT of abdomen and pelvis from 09/18/2017. CT DOSE (mGy.cm): The estimated cumulative dose is 485.91 mGycm. FINDINGS: Scientific Publications Editor topogram: Right mid to basilar opacity. Pulmonary vasculature: The study is suboptimal for the assessment of the pulmonary vascular tree secondary to timing of the contrast bolus. No filling defect within the pulmonary arteries to suggest embolus. Main pulmonary artery is not enlarged. No flattening of the interventricular septum. No intracardiac filling defect. No reflux of contrast into the hepatic veins. Remaining chest: Soft tissues: Normal thyroid and thoracic inlet. Several enlarged right internal mammary and right cardiophrenic angle lymph nodes are apparent. These are subcentimeter though highly atypical. Atherosclerosis of the aorta. Normal heart size. Coronary artery calcification. Moderate right pleural effusion, which is also present within the fissures. This may in part be loculated. No left pleural effusion or pericardial effusion. Pneumobilia noted, new since 2017. Lungs and airways: No pneumothorax. Central airways patent. Pulmonary arteries mildly enlarged relative to adjacent bronchi. Mild interlobular septal thickening more prominently in the right lung. Extensive volume loss and consolidation likely related to passive atelectasis in the left lower lobe. Predominantly subpleural reticular opacities in the aerated portion of the right lung. Limited nodular infiltrate in the periphery of the right upper lobe. There is also limited subpleural reticular and groundglass opacity in the subpleural portions of the superior segment of the lingula. Lesser passive atelectasis of the left lower lobe. Trace emphysema may be present. Musculoskeletal: Degenerative changes of the spine. IMPRESSION: 1. No evidence of pulmonary embolus. 2. Pathologic right internal mammary and right cardiophrenic angle/pericardial lymph nodes. Though these are subcentimeter, enlargement of lymph nodes in these distributions is highly concerning for underlying malignancy. Correlate with a known primary malignancy. 3. Moderate right pleural effusion, which may in part be loculated. Consider fluid evaluation. 4. Extensive associated atelectasis in the right lung. 5. No clear underlying mass is appreciated. The appearance is also not typical for lobar pneumonia though underlying infection is difficult to exclude. Electronically signed by: Malcom Jamil M.D. 08/07/2019 4:52 PM ECG Data Attestation: I personally reviewed and interpreted this ECG as follows: Indication: + SOB/dyspnea Rate (beats per minute): 104 Rhythm: + sinus tachycardia ECG Intervals/blocks: no Normal QRS (QRS 102) ECG ST segments: no ST depression and no ST elevation ECG Findings: + Other (QTC 447) Blood Pressure Blood Pressure Findings: Elevated blood pressure Blood Pressure Disposition: further management by hospitalist MDM Narrative The patient is a pleasant 74-year-old gentleman who presents emergency department with worsening cough congestion over the past week in the setting of having severe coughing fit that led to vomiting per hpi. On arrival the patient is uncomfortable but no acute distress, afebrile with heart rate in the 100s but vital signs otherwise stable. Patient does exhibit mild dyspnea with oxygen saturation 92% on room air. He was given 2 L nasal cannula. EKG without overt acute ischemia. Chest x-ray suspicious for pneumonia. WBC, 33K with neutrophil predominance. Lactate is 2.1 but without anion gap acidosis. Troponin negative/undetectable. BNP within normal limits. Blood cultures were drawn and patient was ordered for Zosyn and vancomycin for pneumonia/sepsis. CTA of the chest was negative for PE however does demonstrate moderate right-sided pleural effusion which may be loculated. There is intralobular septal thickening that is most prominent in the right lung with volume loss and consolidation. There is no clear underlying mass and while not typical for pneumonia cannot be excluded at this time. Patient denies any prior history of malignancy. Case was discussed with Dr. Es Alaniz, [facility] hospitalist, who evaluate the patient for admission. Impression & Plan Pneumonia, Leukocytosis, Elevated lactic acid level, Pleural effusion Discharge Plan Visit Data *Final* Discharge Date/Time: 08/07/19 19:12 Chief Complaint: Shortness of Breath/Dyspnea Stated Complaint: TROUBLE BREATHING/CHEST PAIN ED Provider: Ezio Mireles Discharge Problem: Pneumonia, Leukocytosis, Elevated lactic acid level, Pleural effusion Patient Disposition: Admitted As Inpatient Discharge Instructions Interventions: ED Discharge Assessment Last Done: 08/07/19 19:12 Discharge Problem: Pneumonia Qualifiers: Pneumonia type: due to unspecified organism Laterality: unspecified laterality Lung location: unspecified part of lung Qualified Code(s): J18.9 - Pneumonia, unspecified organism Leukocytosis Qualifiers: Leukocytosis type: unspecified Qualified Code(s): D72.829 - Elevated white blood cell count, unspecified The scribe's documentation has been prepared under my direction and personally reviewed by me in its entirety. I confirm that the note above accurately reflects all work, treatment, procedures, and medical decision making performed by me.
--- NOTE | 2019-08-07 18:15 | History & Physical Report ---
Date of Service August 07, 2019 Assessment & Plan (1) Pneumonia: Ray Saunders is a 74-year-old male with past medical history of coronary artery disease status post stenting in 2016, and hypertension who presents with 2 days of acute shortness of breath with chills and night sweats with a CT suspicious for pneumonia. He has been admitted for inpatient treatment of pneumonia. Community-acquired right lower lobe pneumonia Leukocytosis to 33.8, CTA shows right effusion and atelectasis suspicious for pneumonia. No recent hospitalizations, no recent antibiotic treatment. Received empiric Zosyn and vancomycin in emergency department -Narrow antibiotics for CAP as below Rocephin 1 g IV daily Azithromycin 500 mg x 1 followed by 250 mg daily for 4 days Vancomycin consult continued, MRSA nasal swab pending. Discontinue vancomycin if MRSA swab is negative Thoracic surgery consult placed for evaluation of effusion for thoracentesis, potentially diagnostic is further noted below Wean nasal cannula oxygen to SPO2 greater than 90% Pericardial and thoracic nodules Multiple subcentimeter nodules not further counted or sized noted on CT These are subcentimeter, but are concerning for malignancy. His weight loss could be a reflection of malignancy (20 pounds over 1 year). Hyponatremia could be due to SIADH of pneumonia versus malignancy. Size and lack of primary mass likely make PET and biopsy appropriate at this time Will require CT follow-up imaging in 3 to 6 months Thoracic surgery consulted for evaluation of pleural effusion, possible tap with cytology may assist in further diagnosis Coronary artery disease status post stenting Continue rosuvastatin 5 mg daily Troponin negative on admit, EKG without signs of acute coronary syndrome No clinical signs of ACS at this time - Continue ezetimibe 10mg daily Hypertension Continue metoprolol succinate 12.5 mg p.o. daily Continue irbesartans 150 mg p.o. daily DVT prophylaxis: Lovenox 40 mg subcu daily CODE STATUS: DNR/DNI. Discussed with patient FEN/GI: Heart healthy diet. Encourage p.o. intake, no IV fluids at this time Disposition: Admit to med/surge (2) Leukocytosis: (3) Elevated bilirubin: (4) Ascending cholangitis: (5) H/O heart artery stent: (6) HTN (hypertension): History of Present Illness Chief Complaint: Shortness of breath Primary Care Provider: Kurtis Carrasco MD Ray Saunders is a 74-year-old male who presents with 2 days of worsening shortness of breath, chills, sweats, and fever. His symptoms first began 2 days ago at around 9 PM where he developed a persistent cough different from his normal chronic cough. 1 day ago, yesterday morning he woke up felt worse with an extreme amount of fatigue and decreased energy. He had some sweats. He reports he had persistent chills, and was "freezing "even with sweaters and a hot shower. He endorses pain in his ribs when coughing. Otherwise denies chest pain. Denies shortness of breath with exertion, but notes that he is so fatigued he cannot exert himself very much. Reports his symptoms feel similar to pneumonia he had 25 years ago. He does not have a home oxygen requirement. His primary care physician is Dr. [facility]ras[facility] He is up-to-date on health maintenance, and has a colonoscopy within 10 years which did not show any concerns other than some diverticulosis. Denies nausea, diarrhea, constipation, melena, bright red blood per rectum. He endorses 10 pounds weight loss over the previous 10 years, notes that he has been eating yarn cleaner but otherwise does not have a reason for the weight loss. Social: Tobacco use from age [age], 1/2 pack/day. Alcohol: Drinks light beer daily, 2-3 drinks per sitting Recreational: None Lives with his in a home in [place]. 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 His daughter has driven up from [place] taking care of his while he is in the hospital. Allergies Allergy/AdvReac Type Severity Reaction Status Date / Time NSAIDS (Non-Steroidal Allergy Mild ? Verified 07/26/19 14:52 Anti-Inflamma Gypsmht-Mqq-Mjc Reductase AdvReac Intermediate LEG Verified 07/26/19 14:52 Inhibitor CRAMPS, FLUSHED Cipro AdvReac Mild GI SYMPTOMS Verified 02/24/18 21:56 ciprofloxacin AdvReac Mild GI SYMPTOMS Verified 07/26/19 14:52 ranitidine AdvReac Mild TIRED Verified 07/26/19 14:52 aspirin AdvReac Unknown Verified 08/07/19 16:34 Home Medications Home Medications Medication Instructions Recorded Confirmed Type albuterol sulfate 90 mcg/actuation 2 puffs INHALATION Q4H PRN gm 06/12/19 08/07/19 History aerosol inhaler ezetimibe 10 mg tablet 10 mg PO DAILY #90 tab 06/12/19 08/07/19 History fexofenadine 180 mg tablet 180 mg PO DAILY PRN tab 06/12/19 08/07/19 History nitroglycerin 0.4 mg sublingual 0.4 mg SL Q5M PRN #1 tab 06/12/19 08/07/19 History tablet famotidine 20 mg tablet 20 mg PO DAILY 07/26/19 08/07/19 History ipratropium bromide 0.03 % nasal 2 sprays INTNAS BID 07/26/19 08/07/19 History spray irbesartan 150 mg tablet 150 mg PO DAILY 07/26/19 08/07/19 History rosuvastatin 5 mg tablet 5 mg PO WK 07/26/19 08/07/19 History fluticasone propionate [Flovent 1 - 2 puff INHALATION UD PRN 08/07/19 08/07/19 History HFA] ibuprofen [Advil] 200 mg PO Q6H PRN 08/07/19 08/07/19 History metoprolol succinate [Toprol XL] 12.5 mg PO DAILY 08/07/19 08/07/19 History Past Med/Surg History Medical History Ascending cholangitis Elevated bilirubin Finger laceration (Resolved) HTN (hypertension) (Chronic) Pneumonia Surgical History H/O heart artery stent (Chronic) Family History Other No significant family history Social History Preferred Language: Wol[place] 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 Otherwise denies Chest pain, chest pressure, palpitations, extremity swelling Respiratory: Endorses poorly productive cough, shortness of breath. Gastrointestinal: Denies nausea, constipation, diarrhea. Endorses vomiting as noted in HPI. Endorses some postsurgical abdominal pain since cholecystectomy several years ago. Genitourinary: Denies pain with urination, urinary urgency, urinary frequency Musculoskeletal: Denies focal weakness or muscle aches, but endorses global fatigue Integumentary:Denies new rash, lesions, bruising Neurological: Denies numbness, tingling, focal weakness Physical Exam Physical Exam: General: A&Ox3. NAD. Cooperative. Appears fatigued and ill, but nontoxic HEENT: Atraumatic, normocephalic. External ear anatomy normal. Normal external nasal anatomy. Mucous membranes moist. Posterior pharynx erythematous, but without exudate or tonsillar enlargement. No anterior or posterior vehicle cervical or clavicular adenopathy. Neck supple. Pulm: On nasal cannula oxygen. Chest rise symmetrical. Right lower lobe with diminished breath sounds, faint rales. Other lung gallegos with moderate air movement, no overt rales. Trace end expiratory wheeze in right upper lobe. No acute respiratory distress. Cardiac: RRR, -mrg. Radial pulses intact and symmetrical. Abdominal: Nontender, nondistended, soft. BS present. Extremities: Moving all extremities equally. 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 Constitutional: WD/WN, vitals as above Eyes: normal visual gallegos by confrontation and + anicteric sclerae Neck: normal visual inspection and trachea midline Respiratory: normal respiratory effort; no respiratory distress Auscultation: + diminished lung sounds (R sided) and + crackles (R sided) Pt is on neb during my exam Cardiovascular: Rate/Rhythm: regular rate and regular rhythm Gastrointestinal (Abdomen): Inspection/Auscultation: abdomen not distended Percussion/Palpation: abdomen soft; abdomen nontender Musculoskeletal: Head/Neck/Chest: normocephalic and head atraumatic Neg for peripheral LE edema, + pedal pulses Skin: no rashes, warm and dry Neurologic: awake; not confused Speech / Cognition: normal speech Psychiatric: A+Ox3, euthymic affect Lymphatic: Exam as done by Es Alaniz, Results & Data Vital Signs (Past 12 Hours) Vital Signs Temp Pulse Pulse Resp BP Pulse Ox 08/07/19 17:41 92 H 28 H 93 08/07/19 16:34 96 H 24 95 08/07/19 16:01 98 H 22 96 08/07/19 16:00 99 H 23 145/113 H 95 08/07/19 15:52 94 H 26 H 95 08/07/19 15:51 94 H 21 129/86 95 08/07/19 15:42 94 H 26 H 95 08/07/19 15:30 96 H 27 H 95 08/07/19 15:12 98 H 25 H 95 08/07/19 15:07 94 08/07/19 14:29 36.6 C 110 H 22 156/95 H 92 08/07/19 14:28 97 H 39 H 92/56 L 95 Supervising Physician Co-Signing Physician Notes Pt seen and examined by me. Ongoing cough x10 yrs with neg work-up, but has been much worse recently. It was particularly the worse the last few days when he would try to lie flat and he would become SOB. He states he starts to cough so much that he feels like he cannot get anything out. He has been sleeping in a recliner. He does feel somewhat better s/p nebs in the ED. Has not eaten much in the last 2 days due to low appetite. Agree with HPI/ROS as noted by resident See above for my exam in PE section Agree with plan as outlined above CTA noted for R pleural effusion and nodules concerning for malignancy, ?? PNA CT surg c/s US for fluid eval Mucomyst trial Elevated WBC, started on vanco/zosyn in the ED, will continue vanco with rocephin/azithro Elevated lactic acid HypoNa, concerning given nodules Trop neg, BNP WNL Resident Activity Tracking Resident Involvement: Resident Care Provided Care Provided: Adult Hospital Medicine (1) Leukocytosis Leukocytosis type: unspecified Qualified Code(s): D72.829 - Elevated white blood cell count, unspecified (2) Pneumonia Laterality: unspecified laterality Lung location: unspecified part of lung Pneumonia type: due to unspecified organism Qualified Code(s): J18.9 - Pneumonia, unspecified organism
[2019-08-07] MEDS ORDERED: POLYETHYLENE (MIRALAX) 17 GM PACK PO PRN (19:21)
[2019-08-07] MEDS ORDERED: ALBUTEROL HFA 8 GM INHALER INH PRN (19:21)
[2019-08-07] MEDS ORDERED: ONDANSETRON INJ 2 MG/ML 2 ML VIAL IV PRN (19:21)
[2019-08-07] MEDS ORDERED: NITROGLYCERIN SL 0.4 MG/TAB TAB SL PRN (19:21)
[2019-08-07] MEDS ORDERED: ACETAMINOPHEN 325 MG TAB PO PRN (19:21)
[2019-08-07] MEDS ORDERED: FEXOFENADINE HCL 180 MG TAB PO PRN (19:21)
[2019-08-07] MEDS: ENOXAPARIN INJ 40 MG/0.4 ML SYR SQ SCH (20:54)
[2019-08-07] MEDS ORDERED: cefTRIAXone SODIUM 1,000 MG/50 ML BAG IV SCH (21:00)
--- NOTE | 2019-08-07 21:26 | Billing Data ---
Coding Level of Care Code 67447 Initial Inpt Care Lvl 3
--- NOTE | 2019-08-07 22:06 | XRay Report ---
XR chest 1V portable CLINICAL HISTORY: 74 years-old Male presenting with S/P Thoracentesis. TECHNIQUE: Portable upright AP view of the chest was obtained. COMPARISON: 08/07/2019. FINDINGS: Atherosclerosis of the aortic arch. Cardiac silhouette borderline enlarged. Mildly low lung volumes. Prone vascular prominence. Right basilar opacity likely represents fluid in the minor fissure as well as a basilar component of the pleural effusion. No pneumothorax. No large effusion on the left.. Deg enerative changes of the thoracic spine and degenerative changes of the left glenohumeral joint. Uppe r abdomen normal. IMPRESSION: 1. Right pleural effusion with fluid in the fissure. No pneumothorax. 2. Low lung volumes with hypoventilatory changes. 3. Volume overload persists. No rocky pulmonary edema. Electronically signed by: Malcom Jamil M.D. 08/07/2019 10:04 PM
--- NOTE | 2019-08-07 22:11 | Surgery Consultation ---
Date of Consultation August 07, 2019 Assessment & Plan (1) Pleural effusion, right: Combination of pleuritic right chest pain, chills with sweats, acute dyspnea on exertion and apparent pneumonia with pleural effusion of the right with a white count of over 33,000 all point towards an empyema. The bit concerned about a CT scan as I think there may be more here than just an infection. I would push on with antibiotics with broad coverage especially for anaerobes. I am going to proceed with a thoracentesis tonight. Depending on how things look I may end up offering this very nice man a thoracoscopy with a decortication. We had a very long discussion and he understands. 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 Patient has a history of coronary artery disease as well as hypertension who presented with rather acute 2-day history of chills night sweats and acute shortness of breath. He underwent a CTA and was found to have a complicated right pleural effusion. His white count 33,800. He has an infiltrative pattern to however, it appears he also may have a mass in his lung. Does not appear to be fluid to me. He really does not feel good but states that he "feels better now that I am here". States he has lost some about 20 0 pounds over the last year. 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 He denies hemoptysis. His knees do hurt him for osteoarthritis. He also has hyponatremia with a sodium of 130. I was asked to evaluate him for this pleural effusion appears to have some loculations. In addition he has had orthopnea. He feels better sleeping in recliner. Allergies Allergy/AdvReac Type Severity Reaction Status Date / Time NSAIDS (Non-Steroidal Allergy Mild ? Verified 07/26/19 14:52 Anti-Inflamma Qulvypo-Htd-Jhm Reductase AdvReac Intermediate LEG Verified 07/26/19 14:52 Inhibitor CRAMPS, FLUSHED Cipro AdvReac Mild GI SYMPTOMS Verified 02/24/18 21:56 ciprofloxacin AdvReac Mild GI SYMPTOMS Verified 07/26/19 14:52 ranitidine AdvReac Mild TIRED Verified 07/26/19 14:52 aspirin AdvReac Unknown Verified 08/07/19 16:34 Home Medications Home Medications Medication Instructions Recorded Confirmed Type albuterol sulfate 90 mcg/actuation 2 puffs INHALATION Q4H PRN gm 06/12/19 08/07/19 History aerosol inhaler ezetimibe 10 mg tablet 10 mg PO DAILY #90 tab 06/12/19 08/07/19 History fexofenadine 180 mg tablet 180 mg PO DAILY PRN tab 06/12/19 08/07/19 History nitroglycerin 0.4 mg sublingual 0.4 mg SL Q5M PRN #1 tab 06/12/19 08/07/19 History tablet famotidine 20 mg tablet 20 mg PO DAILY 07/26/19 08/07/19 History ipratropium bromide 0.03 % nasal 2 sprays INTNAS BID 07/26/19 08/07/19 History spray irbesartan 150 mg tablet 150 mg PO DAILY 07/26/19 08/07/19 History rosuvastatin 5 mg tablet 5 mg PO WK 07/26/19 08/07/19 History fluticasone propionate [Flovent 1 - 2 puff INHALATION UD PRN 08/07/19 08/07/19 History HFA] ibuprofen [Advil] 200 mg PO Q6H PRN 08/07/19 08/07/19 History metoprolol succinate [Toprol XL] 12.5 mg PO DAILY 08/07/19 08/07/19 History Patient History Medical History Ascending cholangitis Elevated bilirubin Finger laceration (Resolved) HTN (hypertension) (Chronic) Pneumonia Surgical History H/O heart artery stent (Chronic) Family History Father , Alcohol abuse led to his at 69. No problems noted. Mother , at 96 and was functional up to her . No problems noted. 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 He has been under some stress with his . She is apparently acquired full-time care. Had sweats and chills last few days. He has been acutely short of breath but denies hemoptysis. He has had no palpitations. Denies any GI or complaints. He has been a bit anorexic. Logically has had no focal deficits or other evidence of ischemic neurologic attacks. Physical Exam Physical Exam: Is a 5 foot 5 inch 210 pound male who wears glasses. He sitting in the bedside chair, but he is a bit diaphoretic and appears ill. He is awake alert and oriented. Extra documents are intact. Sclera pale but anicteric. He has no nasolabial flattening. Oral mucosa is a bit dry. Teeth in good repair. His neck is supple. He has no supraclavicular cervical lymp hadenopathy or neck vein distention. I detect no carotid bruits. He does have decreased breath sounds on the right. He has no wheezing or rails on the left. He has a regular rate and rhythm of his heart at about 100 bpm. I do not detect a loud rub. His abdomen is obese but soft. He has no real peripheral edema and has excellent peripheral pulses with no joint effusions. Neurologically is c ompletely intact. Results & Data Vital Signs (Past 12 Hours) Vital Signs Temp Pulse Pulse Resp BP BP Pulse Ox 08/07/19 19:29 36.9 C 101 H 18 126/80 92 08/07/19 19:21 36.6 C 100 H 20 122/77 98 08/07/19 19:01 101 H 27 H 96 08/07/19 19:00 100 H 40 H 143/89 H 96 08/07/19 18:31 92 H 30 H 96 08/07/19 18:30 92 H 36 H 136/81 96 08/07/19 18:01 92 H 41 H 95 08/07/19 18:00 92 H 30 H 153/90 H 94 11/18/19 17:41 92 H 28 H 93 08/07/19 17:31 89 25 H 94 08/07/19 17:30 91 H 28 H 132/82 94 08/07/19 17:01 94 H 22 92 08/07/19 17:00 95 H 20 132/86 92 08/07/19 16:34 96 H 24 95 08/07/19 16:01 98 H 22 96 08/07/19 16:00 99 H 23 145/113 H 95 08/07/19 15:52 94 H 26 H 95 08/07/19 15:51 94 H 21 129/86 95 08/07/19 15:42 94 H 26 H 95 08/07/19 15:30 96 H 27 H 95 08/07/19 15:12 98 H 25 H 95 08/07/19 15:07 94 08/07/19 14:29 36.6 C 110 H 22 156/95 H 92 08/07/19 14:28 97 H 39 H 92/56 L 95 PG Care Time/CCT Total # of Minutes Spent Total Time Spent with Patient: Total time spent is greater than 50% in coordination of care (as documented) at patient's floor/unit and/or counseling patient:
--- NOTE | 2019-08-07 22:15 | Procedure Note ---
Procedure Note Date of Service August 07, 2019 Note This is 74-year-old male came in with a fairly complicated appearing right pleural effusion and signs and symptoms suggestive of a pneumonia or empyema. This reason I set him up for a right thoracentesis under ultrasound guidance. A fter long discussion including going over the risks and benefits, patient elected to proceed with a bedside ultrasound-guided thoracentesis. Patient is seen position leaning forward over a meal table in a pillow his right chest was evaluated with ultrasound. I did find a couple areas that appeared to be good including one right over the diaphragm on the right. He was prepped and draped in sterile fashion after I had marked this with a double ink. Using a #25 if he was in Xylocaine and a steroid skin in the subtest tissues and large bore needle to anesthetize the deeper anesthetize the deeper intercostal muscles and the pleura. We get free-flowing serous appearing yellow fluid. A guidewire was inserted the needle needle removed. Triple cath was slid over the guidewire and the guidewire removed. Partially 300 cc of a fairly serous but a bit turbid yellow fluid was drained. He had no reexpansion pain. The catheter would not drain any more on any port. We remove this from the patient. There is no significant bleeding and I did place a dressing over this with occlusive tape. This is an antimicrobial dressing. Chest x-ray is pending at this time. He tolerated it well. Coding
[2019-08-07 23:02] LABS: Appearance Pleural Fluid CLEAR; Color Pleural Fluid YELLOW; RBC Pleural Fluid (A) < 3000 /uL; Source Pleural Fluid RIGHT LUNG; WBC Pleural Fluid (A) 74 /uL
[2019-08-07 23:09] LABS: Glucose Pleural Fluid 120 mg/dl
[2019-08-07 23:15] LABS: Amylase Pleural Fluid 20 U/L; LDH Pleural Fluid 68 U/L; Total Protein Pleural Fluid 4.8 g/dl
[2019-08-07 23:19] LABS: Eosinophils, Fluid 0 %; Lymphocytes, Fluid 14 %; Mono,Macrophage,Mesothelial 32 %; Neutrophils, Fluid 54 %
[2019-08-08 06:11] LABS: Hematocrit (blood only) 42.4 % (42-52); Hemoglobin 14.9 g/dL (14.0-18.0); Mean Corpuscular Hemoglobin 31.9 pg (25-34); Mean Corpuscular Hgb Conc 35.1 g/dL (32-36); Mean Corpuscular Volume 90.8 fL (80-100); Mean Platelet Volume 9.1 fL (7.4-10.4); Platelet Count 248 K/uL (130-400); RDW Coefficient of Variation 13.2 % (11.5-14.5); RDW Standard Deviation 43.7 fL (36.4-46.3); Red Blood Count 4.67 M/uL (4.7-6.1); White Blood Count 24.38 K/uL (4.8-10.8)
[2019-08-08 06:32] LABS: Basophils # (auto) 0.01 K/uL (0-0.2); Immature Granulocytes % (auto) 0.4 %; Lymphocytes # (auto) 1.38 K/uL (1.2-3.4); Lymphocytes % (auto) 5.7 %; Monocytes # (auto) 1.63 K/uL (0.11-0.59); Monocytes % (auto) 6.7 %; Neutrophils # (auto) 21.26 K/uL (1.4-6.5); Neutrophils % (auto) 87.2 %
[2019-08-08 06:40] LABS: BUN Creatinine Ratio 18.5 (10-20); Calcium 9.8 mg/dl (8.5-10.1); Creatinine Clr Calc Pharmacy 80.5 ml/min; Est GFR (African American) 99.3; Est GFR (Non-African American) 85.7; Potassium 4.2 mmol/L (3.5-5.1)
[2019-08-08] MEDS ORDERED: ACETYLCYSTEINE 20% INHAL SOLN ***DISPENSED BY RESP. INH SCH (07:00)
[2019-08-08] MEDS: FAMOTIDINE 20 MG TAB PO SCH (08:03)
[2019-08-08] MEDS: METOPROLOL SUCC 25MG EXT REL TAB PO SCH (08:03)
[2019-08-08] MEDS: ROSUVASTATIN CALCIUM 5 MG TAB PO SCH (08:03)
[2019-08-08] MEDS: AZITHROMYCIN 250 MG TAB PO SCH (08:03)
[2019-08-08] MEDS: EZETIMIBE 10 MG TABLET PO SCH (08:03)
[2019-08-08] MEDS: IRBESARTAN 150 MG TAB PO SCH (08:03)
[2019-08-08] MEDS ORDERED: VANCOMYCIN HCL 1,250 MG in SODIUM CHLORIDE 0.9% 250 ML IV SCH (09:00)
--- NOTE | 2019-08-08 09:22 | Pharmacy Report ---
Pharmacy Abx Initial Consult - Date of Service August 08, 2019 - Pharmacy Dosing Scope Date of Consult: 08/07 Consultation requested by: Dr. Donato Pharmacy is consulted to initiate vancomycin IV/PO dosing therapy, order appropriate labs and adjust drug dose/frequency. - Subjective The patient is a 74 year old M admitted on 08/07/19 18:39. - Objective Height: 5 ft 5 in Weight: 94.9 kg Vital Signs (Past 12hrs): Vital Signs Temp Pulse Resp BP Pulse Ox 08/08/19 07:21 36.5 C 68 20 126/77 93 08/08/19 07:17 88 20 93 08/08/19 00:00 36.3 C L 85 19 133/82 93 Lab Results (24hrs): Laboratory Tests (24 Hours) 08/08/19 08/08/19 08/07/19 05:55 05:55 15:04 WBC 24.38 H Neut # (Auto) 21.26 H Creatinine 0.84 0.96 Est Cr Clr Drug Dosing 80.5 69.8 Micro Results: 08/07/19 21:42 Gram Stain - Final Pleural Fluid Aerobic and Anaerobic Culture - Pending 08/07/19 21:42 Acid Fast Bacilli Smear - Pending Pleural Fluid Acid Fast Bacilli Culture - Pending 08/07/19 16:16 Aerobic Blood Culture - Pending Blood Anaerobic Blood Culture - Pending 08/07/19 16:16 Aerobic Blood Culture - Pending Blood Anaerobic Blood Culture - Pending - Assessment & Plan Assessment 74 year old M admitted with increased shortness of breath/chills and concern for pneumonia. Surgery consulted and thorocentesis performed last evening due to concern for empyema. Pleural cultures are pending. Blood cultures x 2 are pending. Patient also started on rocephin and azithromycin for additional coverage. Plan Vancomycin IV * Received loading dose of vancomycin 1750 mg (~19 mg/kg) last evening in ED * Will start maintenance dose of vancomycin 1250 mg (~13 mg/kg) iv q 12 hrs to achieve an estimated trough ~15-20 mcg/ml (goal for pneumonia) * Estimated kinetics: t1/2~10 hrs, ke~0.84 hr-1, CrCl ~80 ml/min - appears to be at baseline Scr * Less than traditional vancomycin dose chosen due to likelihood of accumulation b/c of BMI >/=35 kg/m2 * Will plan to check trough prior to the 0900 dose on 08/10 to ensure therap eutic Pharmacy will continue to follow and will adjust dose/frequency as necessary. Thank you.
[2019-08-08] MEDS ORDERED: PIPERACILL/TAZOBAC CONSULT ACTIVE PRN (09:48)
--- NOTE | 2019-08-08 09:49 | Pulmonary Consultation ---
Date of Consultation August 08, 2019 Assessment & Plan (1) Pleural effusion, right: Impression: 74-year-old male presenting with acute onset of cough, right- sided chest pain, and a loculated pleural effusion. Fluid studies from thoracentesis last night are relatively unremarkable. The clinical presentation is highly concerning for potential parapneumonic effusion including viral etiologies. The bland pleural fluid may be because the pockets may not communicate. Recommendations: 1. Complex pleural effusion: I reviewed images with thoracic surgery and with the patient. Given the loculated appearance and diagnostic uncertainty I would favor proceeding with video-assisted thoracoscopic decortication. This would allow for inspection of the pleural surfaces and complete drainage of these loculated pockets. Other inflammatory etiologies are possible and will check a serological evaluation including YANNICK, ESR, rheumatoid factor, anti-CCP, and CRP. 2. Pneumonia: Would continue broad-spectrum antibiotics. We will place the patient on Zosyn for anaerobic coverage given the appearance pending cultures. Will check procalcitonin. Discontinue vancomycin. Continue azithromycin for now. 3. Cough: Secondary to underlying lung process. We will provide the patient a trial of Tessalon Perles to see if these are beneficial with regards to his cough. 4. Additional recommendations will be based on thoracoscopic visualization and samples. (2) Pneumonia: Laterality: unspecified laterality Lung location: unspecified part of lung Pneumonia type: due to unspecified organism Qualified Code(s): J18.9 - Pneumonia, unspecified organism (3) Leukocytosis: Leukocytosis type: unspecified Qualified Code(s): D72.829 - Elevated white blood cell count, unspecified History of Present Illness Attending Physician: Alexander Lopez History of Present Illness Asked by Dr. Huntley to evaluate patient with complicated pleural effusion. Patient seen and examined. EMR reviewed. History is obtained from discussion with the patient and discussion with thoracic surgical service. The patient is a 74-year-old male with a trivial tobacco exposure history. 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. He has no prior pulmonary history or issues. He states he was doing well up until Wednesday. He then developed some slight right-sided chest pain associated with a nonproductive cough. He was plagued by some chills but no Reiger's. He did not take his temperature. He did continue to feel extremely fatigued and the coughing was so severe that he had some posttussive emesis. He is the primary caregiver for his who has type 1 diabetes and dementia. He had to remain at home until his daughter was able to come up and care for his which point time he presented to the emergency room. He was found to have a marked leukocytosis. He was admitted to the hospitalist service after receiving antibiotics in the form of Rocephin and azithromycin. Thoracic surgery was consulted. A thoracentesis was performed yesterday evening which revealed a relatively bland fluid. We are consulted for additional evaluation management of his pleural space. 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. He was exposed to a variety of defoliating agents including relatives of ramirez xavier. He does not report any significant family history of lung disease. No skin rashes or lesions. No joint complaints. No prior history of rheumatoid arthritis or connective tissue disease. No TB exposures. Prior to Wednesday he had felt well with no respiratory or constitutional symptoms. Allergies Allergy/AdvReac Type Severity Reaction Status Date / Time NSAIDS (Non-Steroidal Allergy Mild ? Verified 07/26/19 14:52 Anti-Inflamma [id number]-Fmk Reductase AdvReac Intermediate LEG Verified 07/26/19 14:52 Inhibitor CRAMPS, FLUSHED Cipro AdvReac Mild GI SYMPTOMS Verified 02/24/18 21:56 ciprofloxacin AdvReac Mild GI SYMPTOMS Verified 07/26/19 14:52 ranitidine AdvReac Mild TIRED Verified 07/26/19 14:52 aspirin AdvReac Unknown Verified 08/07/19 16:34 Home Medications Home Medications Medication Instructions Recorded Confirmed Type albuterol sulfate 90 mcg/actuation 2 puffs INHALATION Q4H PRN gm 06/12/19 08/07/19 History aerosol inhaler ezetimibe 10 mg tablet 10 mg PO DAILY #90 tab 06/12/19 08/07/19 History fexofenadine 180 mg tablet 180 mg PO DAILY PRN tab 06/12/19 08/07/19 History nitroglycerin 0.4 mg sublingual 0.4 mg SL Q5M PRN #1 tab 06/12/19 08/07/19 History tablet famotidine 20 mg tablet 20 mg PO DAILY 07/26/19 08/07/19 History ipratropium bromide 0.03 % nasal 2 sprays INTNAS BID 07/26/19 08/07/19 History spray irbesartan 150 mg tablet 150 mg PO DAILY 07/26/19 08/07/19 History rosuvastatin 5 mg tablet 5 mg PO WK 07/26/19 08/07/19 History fluticasone propionate [Flovent 1 - 2 puff INHALATION UD PRN 08/07/19 08/07/19 History HFA] ibuprofen [Advil] 200 mg PO Q6H PRN 08/07/19 08/07/19 History metoprolol succinate [Toprol XL] 12.5 mg PO DAILY 08/07/19 08/07/19 History Patient History Medical History Ascending cholangitis Elevated bilirubin Finger laceration (Resolved) HTN (hypertension) (Chronic) Pneumonia Surgical History H/O heart artery stent (Chronic) Family History Father , Alcohol abuse led to his at 69. No problems noted. Mother , at 96 and was functional up to her . No problems noted. Other No significant family history Social History Preferred Language: Icelandic [employer] Supervisor Required: No Beliefs That Will Affect Care: Druze Druze Beliefs: faith Current Living Situation: Alone and Spouse Other Information That Helps Us Care for You: No Feels Safe at Home: Yes Safety Concerns: Feels Safe At This Time Smoking Status: Former smoker Do You Dip or Chew Tobacco: No ; Hx Alcohol Use: Yes Alcohol type: beer Hx Substance Use: No Review of Systems Review of Systems: See HPI. No additions or deletions Physical Exam Constitutional: WD/WN, vitals as above Neck: trachea midline, no thyromegaly Respiratory: Decreased breath sounds at the right lung base. Slightly tachypneic on exam Cardiovascular: RRR, no murmur, no edema Gastrointestinal (Abdomen): normal bowel sounds, soft, nontender, no hepatosplenomegaly Musculoskeletal: Extremities: extremities normal to inspection Skin: no rashes, warm and dry Neurologic: Nonfocal exam Lymphatic: no cervical lymphadenopathy Results & Data Vital Signs (Past 12 Hours) Vital Signs Temp Pulse Resp BP Pulse Ox 08/08/19 07:21 36.5 C 68 20 126/77 93 08/08/19 07:17 88 20 93 08/08/19 00:00 36.3 C L 85 19 133/82 93 Laboratory Results 08/08/19 05:55 08/08/19 05:55 Pleural fluid studies: pH 7.49 White blood cell count 74 Total protein 4.8 Pleural LDH 68 Pleural glucose 120 Pleural amylase 20 Gram stain, few white blood cells no organisms culture negative to date Diagnostic Findings CT of the chest from 08/07/2019 was independently reviewed. It demonstrates a loculated pleural fluid within the right hemithorax. There does appear to be some nodularity and fat stranding in the mediastinal fat anteriorly and towards the mediastinum. Unclear if there are lymph nodes present there as well. Atelectatic right lung is also noted. PG Care Time/CCT Total # of Minutes Spent Total Time Spent with Patient: Total time spent is greater than 50% in coordination of care (as documented) at patient's floor/unit and/or counseling patient:
[2019-08-08] MEDS ORDERED: PIPERACILLIN/TAZOBACTAM 3.375 GM in DEXTROSE 5% 100 ML IV ONE (10:15)
--- NOTE | 2019-08-08 15:09 | Hospitalist Progress Note ---
Date of Service August 08, 2019 Assessment & Plan (1) Pneumonia: - Chest CT showed loculated right pleural effusion and extensive atelectasis of right lung. - Has elevated procalcitonin and leukocytosis noted on lab work c/w infection; leukocytosis improving with IV abx treatment. - Influenza by PCR negative. Lactate was 2.1 on admission, trended down. - Convert to Zosyn for atypical coverage, continue Azithromycin; can d/c Vanco IV. - Pulmonary & thoracic surgery following, recommend video assisted thoracoscopic decortication. - Tessalon perles and Albuterol prn. (2) Pleural effusion: - CT showed moderate right pleural effusion. - S/p thoracentesis on 08/07, drained 300 cc fluid. Pathology is pending. - Pulmonary team recommending video assisted thoracoscopic decortication. - YANNICK, Rheumatoid factor, anti-CCP pending; ESR was 87, CRP 27.50. - Appreciate thoracic surgery and pulmonary input. (3) Acute respiratory failure with hypoxia: - Has been requiring 2L via NC. - Continue to wean oxygen as tolerated; likely related to PNA and pleural effusion. (4) Pulmonary nodules: - CT showed right internal mammary and right cardiophrenic angle/per icardial lymph nodes -- concerning for underlying malignancy in setting of weight loss. - Pulm following, appreciate input. - Pathology of pleural fluid is pending to rule out malignancy. (5) CAD (coronary artery disease): - S/p stenting of mid left circumflex and overall left circumflex marginal in 2016. - Continue metoprolol, statin and ezetimibe as prescribed. (6) Dyslipidemia: - Continue statin and zetia as prescribed. (7) HTN (hypertension): - Continue Irbesartan and Metoprolol as prescribed. (8) Leukocytosis: - Likely related to acute infection -- now trending down. - Monitor CBC daily. (9) Hyponatremia: - Na level 130 on admission, concern for SIADH related to underlying lung malignancy. - Continue to monitor, level is now trending up. (10) DVT prophylaxis: - Lovenox daily. Dispo: Med/surg for treatment of PNA/pleural effusion. Subjective Pt. has productive cough, yellow sputum production. C/o SOB, increased with deep inspiration. Has sternal chest pain related to coughing. Has noticed mild improvement after starting IV abx over the last 24 hours. Review of Systems Review of Systems: All systems reviewed & are unremarkable except as noted in HPI & below Constitutional: + fatigue and + weakness; no fever, no chills and no anorexia Respiratory: + cough, + dyspnea, + dyspnea on exertion and + sputum production; no wheezing Cardiovascular: + chest pain; no palpitations and no edema Gastrointestinal: no abdominal pain, no nausea and no constipation Genitourinary: no difficulty urinating Musculoskeletal: no back pain and no joint pain Physical Exam Physical Exam: General: Resting comfortably HEENT: NC/AT; PERRLA with EOMI; Zachary conjunctiva, MMM. No erythema of posterior pharynx Neck: Supple and nontender Cardiac: RRR Lungs: on 2L via NC; crackles in bilat lower lung bases with scattered wheezing. Abdomen: Bowel normoactive X 4; Nontender to palpation Extremities: Warm. No edema present Neuro: No focal weakness Skin: No rash Results & Data Vital Signs (Past 12 Hours) Vital Signs Temp Pulse Resp BP Pulse Ox 08/08/19 07:21 36.5 C 68 20 126/77 93 08/08/19 07:17 88 20 93 Laboratory Results 08/08/19 08/08/19 08/08/19 Range/Units 10:44 10:44 10:44 WBC (4.8-10.8) K/uL RBC (4.7-6.1) M/uL Hgb (14.0-18.0) g/dL Hct (42-52) % MCV (80-100) fL MCH (25-34) pg MCHC (32-36) g/dL RDW Std Deviation (36.4-46.3) fL RDW Coeff of Carli (11.5-14.5) % Plt Count (130-400) K/uL MPV (7.4-10.4) fL Immature Gran % (Auto) % Neut % (Auto) % Lymph % (Auto) % [place] % (Auto) % Eos % (Auto) % Baso % (Auto) % Immature Gran # (Auto) (0.00-0.02) K/uL Neut # (Auto) (1.4-6.5) K/uL Lymph # (Auto) (1.2-3.4) K/uL [place] # (Auto) (0.11-0.59) K/uL Eos # (Auto) (0-0.5) K/uL Baso # (Auto) (0-0.2) K/uL ESR (0-14) mm/hr Sodium (136-145) mmol/L Potassium (3.5-5.1) mmol/L Chloride (98-107) mmol/L Carbon Dioxide (21-32) mmol/L Anion Gap (3-11) BUN (7-18) mg/dl Creatinine (0.6-1.4) mg/dl Est Cr Clr Drug Dosing ml/min Est GFR ( Amer) Est GFR (Non-Af Amer) BUN/Creatinine Ratio (10-20) Glucose (70-99) mg/dl Lactate (0.4-2.0) mmol/L Calcium (8.5-10.1) mg/dl Phosphorus (2.5-4.9) mg/dl Magnesium (1.8-2.4) mg/dl Total Bilirubin (0.2-1) mg/dl AST (15-37) U/L ALT (12-78) U/L Alkaline Phosphatase (45-117) U/L Lactate Dehydrogenase (87-241) U/L Troponin I (0-0.045) ng/ml C-Reactive Protein (0-0.29) mg/dl NT-Pro-B Natriuret Pep (0-900) pg/ml Total Protein (6.4-8.2) gm/dl Albumin (3.4-5.0) gm/dl Globulin (2.5-4.0) gm/dl Albumin/Globulin Ratio (0.9-2) Lipase (73-393) U/L Procalcitonin 1.29 H (0-0.5) ng/ml Fluid Neutrophils % % Fluid Lymphocytes % % Fluid Eosinophils % % Fluid Meso/Macro/[place] % % Pleural Fluid Source Pleural Color Pleural Appearance Pleural pH (7.3-7.4) Pleural WBC /uL Pleural RBC /uL Pleural Total Protein g/dl Pleural LDH U/L Pleural Glucose mg/dl Pleural Amylase U/L Pleural Cholesterol Nasal Screen MRSA (PCR) (Negative) Rheumatoid Factor Pending Cycl Citrul Peptide IgG 0.55 (0-4.99) U/ml YANNICK Screen Pending Influenza Type A (PCR) (Neg) Influenza Type B (PCR) (Neg) 11/19/19 11/19/19 11/19/19 Range/Units 10:44 10:44 05:55 WBC (4.8-10.8) K/uL RBC (4.7-6.1) M/uL Hgb (14.0-18.0) g/dL Hct (42-52) % MCV (80-100) fL MCH (25-34) pg MCHC (32-36) g/dL RDW Std Deviation (36.4-46.3) fL RDW Coeff of Carli (11.5-14.5) % Plt Count (130-400) K/uL MPV (7.4-10.4) fL Immature Gran % (Auto) % Neut % (Auto) % Lymph % (Auto) % [place] % (Auto) % Eos % (Auto) % Baso % (Auto) % Immature Gran # (Auto) (0.00-0.02) K/uL Neut # (Auto) (1.4-6.5) K/uL Lymph # (Auto) (1.2-3.4) K/uL [place] # (Auto) (0.11-0.59) K/uL Eos # (Auto) (0-0.5) K/uL Baso # (Auto) (0-0.2) K/uL ESR 87 H (0-14) mm/hr Sodium 134 L (136-145) mmol/L Potassium 4.2 (3.5-5.1) mmol/L Chloride 103 (98-107) mmol/L Carbon Dioxide 26 (21-32) mmol/L Anion Gap 5.0 (3-11) BUN 15 (7-18) mg/dl Creatinine 0.84 (0.6-1.4) mg/dl Est Cr Clr Drug Dosing 80.5 ml/min Est GFR ( Amer) 99.3 Est GFR (Non-Af Amer) 85.7 BUN/Creatinine Ratio 18.5 (10-20) Glucose 164 H (70-99) mg/dl Lactate (0.4-2.0) mmol/L Calcium 9.8 (8.5-10.1) mg/dl Phosphorus (2.5-4.9) mg/dl Magnesium (1.8-2.4) mg/dl Total Bilirubin (0.2-1) mg/dl AST (15-37) U/L ALT (12-78) U/L Alkaline Phosphatase (45-117) U/L Lactate Dehydrogenase (87-241) U/L Troponin I (0-0.045) ng/ml C-Reactive Protein 27.50 H (0-0.29) mg/dl NT-Pro-B Natriuret Pep (0-900) pg/ml Total Protein (6.4-8.2) gm/dl Albumin (3.4-5.0) gm/dl Globulin (2.5-4.0) gm/dl Albumin/Globulin Ratio (0.9-2) Lipase (73-393) U/L Procalcitonin (0-0.5) ng/ml Fluid Neutrophils % % Fluid Lymphocytes % % Fluid Eosinophils % % Fluid Meso/Macro/[place] % % Pleural Fluid Source Pleural Color Pleural Appearance Pleural pH (7.3-7.4) Pleural WBC /uL Pleural RBC /uL Pleural Total Protein g/dl Pleural LDH U/L Pleural Glucose mg/dl Pleural Amylase U/L Pleural Cholesterol Nasal Screen MRSA (PCR) (Negative) Rheumatoid Factor Cycl Citrul Peptide IgG (0-4.99) U/ml YANNICK Screen Influenza Type A (PCR) (Neg) Influenza Type B (PCR) (Neg) 08/08/19 08/07/19 08/07/19 Range/Units 05:55 22:11 21:42 WBC 24.38 H (4.8-10.8) K/uL RBC 4.67 L (4.7-6.1) M/uL Hgb 14.9 (14.0-18.0) g/dL Hct 42.4 (42-52) % MCV 90.8 (80-100) fL MCH 31.9 (25-34) pg MCHC 35.1 (32-36) g/dL RDW Std Deviation 43.7 (36.4-46.3) fL RDW Coeff of Carli 13.2 (11.5-14.5) % Plt Count 248 (130-400) K/uL MPV 9.1 (7.4-10.4) fL Immature Gran % (Auto) 0.4 % Neut % (Auto) 87.2 % Lymph % (Auto) 5.7 % [place] % (Auto) 6.7 % Eos % (Auto) 0.0 % Baso % (Auto) 0.0 % Immature Gran # (Auto) 0.10 H (0.00-0.02) K/uL Neut # (Auto) 21.26 H (1.4-6.5) K/uL Lymph # (Auto) 1.38 (1.2-3.4) K/uL [place] # (Auto) 1.63 H (0.11-0.59) K/uL Eos # (Auto) 0.00 (0-0.5) K/uL Baso # (Auto) 0.01 (0-0.2) K/uL ESR (0-14) mm/hr Sodium (136-145) mmol/L Potassium (3.5-5.1) mmol/L Chloride (98-107) mmol/L Carbon Dioxide (21-32) mmol/L Anion Gap (3-11) BUN (7-18) mg/dl Creatinine (0.6-1.4) mg/dl Est Cr Clr Drug Dosing ml/min Est GFR ( Amer) Est GFR (Non-Af Amer) BUN/Creatinine Ratio (10-20) Glucose (70-99) mg/dl Lactate (0.4-2.0) mmol/L Calcium (8.5-10.1) mg/dl Phosphorus (2.5-4.9) mg/dl Magnesium (1.8-2.4) mg/dl Total Bilirubin (0.2-1) mg/dl AST (15-37) U/L ALT (12-78) U/L Alkaline Phosphatase (45-117) U/L Lactate Dehydrogenase 195 (87-241) U/L Troponin I (0-0.045) ng/ml C-Reactive Protein (0-0.29) mg/dl NT-Pro-B Natriuret Pep (0-900) pg/ml Total Protein (6.4-8.2) gm/dl Albumin (3.4-5.0) gm/dl Globulin (2.5-4.0) gm/dl Albumin/Globulin Ratio (0.9-2) Lipase (73-393) U/L Procalcitonin (0-0.5) ng/ml Fluid Neutrophils % % Fluid Lymphocytes % % Fluid Eosinophils % % Fluid Meso/Macro/[place] % % Pleural Fluid Source Pleural Color Pleural Appearance Pleural pH 7.49 H (7.3-7.4) Pleural WBC /uL Pleural RBC /uL Pleural Total Protein g/dl Pleural LDH U/L Pleural Glucose mg/dl Pleural Amylase U/L Pleural Cholesterol Nasal Screen MRSA (PCR) (Negative) Rheumatoid Factor Cycl Citrul Peptide IgG (0-4.99) U/ml YANNICK Screen Influenza Type A (PCR) (Neg) Influenza Type B (PCR) (Neg) 08/07/19 08/07/19 08/07/19 Range/Units 21:42 21:42 20:45 WBC (4.8-10.8) K/uL RBC (4.7-6.1) M/uL Hgb (14.0-18.0) g/dL Hct (42-52) % MCV (80-100) fL MCH (25-34) pg MCHC (32-36) g/dL RDW Std Deviation (36.4-46.3) fL RDW Coeff of Carli (11.5-14.5) % Plt Count (130-400) K/uL MPV (7.4-10.4) fL Immature Gran % (Auto) % Neut % (Auto) % Lymph % (Auto) % [place] % (Auto) % Eos % (Auto) % Baso % (Auto) % Immature Gran # (Auto) (0.00-0.02) K/uL Neut # (Auto) (1.4-6.5) K/uL Lymph # (Auto) (1.2-3.4) K/uL [place] # (Auto) (0.11-0.59) K/uL Eos # (Auto) (0-0.5) K/uL Baso # (Auto) (0-0.2) K/uL ESR (0-14) mm/hr Sodium (136-145) mmol/L Potassium (3.5-5.1) mmol/L Chloride (98-107) mmol/L Carbon Dioxide (21-32) mmol/L Anion Gap (3-11) BUN (7-18) mg/dl Creatinine (0.6-1.4) mg/dl Est Cr Clr Drug Dosing ml/min Est GFR ( Amer) Est GFR (Non-Af Amer) BUN/Creatinine Ratio (10-20) Glucose (70-99) mg/dl Lactate (0.4-2.0) mmol/L Calcium (8.5-10.1) mg/dl Phosphorus (2.5-4.9) mg/dl Magnesium (1.8-2.4) mg/dl Total Bilirubin (0.2-1) mg/dl AST (15-37) U/L ALT (12-78) U/L Alkaline Phosphatase (45-117) U/L Lactate Dehydrogenase (87-241) U/L Troponin I (0-0.045) ng/ml C-Reactive Protein (0-0.29) mg/dl NT-Pro-B Natriuret Pep (0-900) pg/ml Total Protein (6.4-8.2) gm/dl Albumin (3.4-5.0) gm/dl Globulin (2.5-4.0) gm/dl Albumin/Globulin Ratio (0.9-2) Lipase (73-393) U/L Procalcitonin (0-0.5) ng/ml Fluid Neutrophils % 54 % Fluid Lymphocytes % 14 % Fluid Eosinophils % 0 % Fluid Meso/Macro/[place] % 32 % Pleural Fluid Source RIGHT LUNG Pleural Color YELLOW Pleural Appearance CLEAR Pleural pH (7.3-7.4) Pleural WBC 74 /uL Pleural RBC < 3000 /uL Pleural Total Protein 4.8 g/dl Pleural LDH 68 U/L Pleural Glucose 120 mg/dl Pleural Amylase 20 U/L Pleural Cholesterol Pending Nasal Screen MRSA (PCR) Negative (Negative) Rheumatoid Factor Cycl Citrul Peptide IgG (0-4.99) U/ml YANNICK Screen Influenza Type A (PCR) (Neg) Influenza Type B (PCR) (Neg) 08/07/19 08/07/19 08/07/19 Range/Units 18:16 16:16 15:45 WBC (4.8-10.8) K/uL RBC (4.7-6.1) M/uL Hgb (14.0-18.0) g/dL Hct (42-52) % MCV (80-100) fL MCH (25-34) pg MCHC (32-36) g/dL RDW Std Deviation (36.4-46.3) fL RDW Coeff of Carli (11.5-14.5) % Plt Count (130-400) K/uL MPV (7.4-10.4) fL Immature Gran % (Auto) % Neut % (Auto) % Lymph % (Auto) % [place] % (Auto) % Eos % (Auto) % Baso % (Auto) % Immature Gran # (Auto) (0.00-0.02) K/uL Neut # (Auto) (1.4-6.5) K/uL Lymph # (Auto) (1.2-3.4) K/uL [place] # (Auto) (0.11-0.59) K/uL Eos # (Auto) (0-0.5) K/uL Baso # (Auto) (0-0.2) K/uL ESR (0-14) mm/hr Sodium (136-145) mmol/L Potassium (3.5-5.1) mmol/L Chloride (98-107) mmol/L Carbon Dioxide (21-32) mmol/L Anion Gap (3-11) BUN (7-18) mg/dl Creatinine (0.6-1.4) mg/dl Est Cr Clr Drug Dosing ml/min Est GFR ( Amer) Est GFR (Non-Af Amer) BUN/Creatinine Ratio (10-20) Glucose (70-99) mg/dl Lactate 1.3 2.1 H* (0.4-2.0) mmol/L Calcium (8.5-10.1) mg/dl Phosphorus (2.5-4.9) mg/dl Magnesium (1.8-2.4) mg/dl Total Bilirubin (0.2-1) mg/dl AST (15-37) U/L ALT (12-78) U/L Alkaline Phosphatase (45-117) U/L Lactate Dehydrogenase (87-241) U/L Troponin I (0-0.045) ng/ml C-Reactive Protein (0-0.29) mg/dl NT-Pro-B Natriuret Pep (0-900) pg/ml Total Protein (6.4-8.2) gm/dl Albumin (3.4-5.0) gm/dl Globulin (2.5-4.0) gm/dl Albumin/Globulin Ratio (0.9-2) Lipase (73-393) U/L Procalcitonin (0-0.5) ng/ml Fluid Neutrophils % % Fluid Lymphocytes % % Fluid Eosinophils % % Fluid Meso/Macro/[place] % % Pleural Fluid Source Pleural Color Pleural Appearance Pleural pH (7.3-7.4) Pleural WBC /uL Pleural RBC /uL Pleural Total Protein g/dl Pleural LDH U/L Pleural Glucose mg/dl Pleural Amylase U/L Pleural Cholesterol Nasal Screen MRSA (PCR) (Negative) Rheumatoid Factor Cycl Citrul Peptide IgG (0-4.99) U/ml YANNICK Screen Influenza Type A (PCR) Neg for Influ A (Neg) Influenza Type B (PCR) Neg for Influ B (Neg) 08/07/19 08/07/19 Range/Units 15:04 15:04 WBC 33.84 H* (4.8-10.8) K/uL RBC 4.86 (4.7-6.1) M/uL Hgb 15.5 (14.0-18.0) g/dL Hct 43.7 (42-52) % MCV 89.9 (80-100) fL MCH 31.9 (25-34) pg MCHC 35.5 (32-36) g/dL RDW Std Deviation 43.7 (36.4-46.3) fL RDW Coeff of Carli 13.3 (11.5-14.5) % Plt Count 263 (130-400) K/uL MPV 9.5 (7.4-10.4) fL Immature Gran % (Auto) 0.5 % Neut % (Auto) 83.5 % Lymph % (Auto) 7.3 % [place] % (Auto) 8.6 % Eos % (Auto) 0.0 % Baso % (Auto) 0.1 % Immature Gran # (Auto) 0.17 H (0.00-0.02) K/uL Neut # (Auto) 28.25 H (1.4-6.5) K/uL Lymph # (Auto) 2.47 (1.2-3.4) K/uL [place] # (Auto) 2.92 H (0.11-0.59) K/uL Eos # (Auto) 0.00 (0-0.5) K/uL Baso # (Auto) 0.03 (0-0.2) K/uL ESR (0-14) mm/hr Sodium 130 L (136-145) mmol/L Potassium 3.7 (3.5-5.1) mmol/L Chloride 98 (98-107) mmol/L Carbon Dioxide 21 (21-32) mmol/L Anion Gap 11.0 (3-11) BUN 21 H (7-18) mg/dl Creatinine 0.96 (0.6-1.4) mg/dl Est Cr Clr Drug Dosing 69.8 ml/min Est GFR ( Amer) 89.3 Est GFR (Non-Af Amer) 77.0 BUN/Creatinine Ratio 21.8 H (10-20) Glucose 120 H (70-99) mg/dl Lactate (0.4-2.0) mmol/L Calcium 10.0 (8.5-10.1) mg/dl Phosphorus 2.4 L (2.5-4.9) mg/dl Magnesium 2.2 (1.8-2.4) mg/dl Total Bilirubin 1.6 H (0.2-1) mg/dl AST 22 (15-37) U/L ALT 33 (12-78) U/L Alkaline Phosphatase 89 (45-117) U/L Lactate Dehydrogenase (87-241) U/L Troponin I < 0.015 (0-0.045) ng/ml C-Reactive Protein (0-0.29) mg/dl NT-Pro-B Natriuret Pep 211 (0-900) pg/ml Total Protein 7.9 (6.4-8.2) gm/dl Albumin 2.7 L (3.4-5.0) gm/dl Globulin 5.2 H (2.5-4.0) gm/dl Albumin/Globulin Ratio 0.5 L (0.9-2) Lipase 63 L (73-393) U/L Procalcitonin (0-0.5) ng/ml Fluid Neutrophils % % Fluid Lymphocytes % % Fluid Eosinophils % % Fluid Meso/Macro/[place] % % Pleural Fluid Source Pleural Color Pleural Appearance Pleural pH (7.3-7.4) Pleural WBC /uL Pleural RBC /uL Pleural Total Protein g/dl Pleural LDH U/L Pleural Glucose mg/dl Pleural Amylase U/L Pleural Cholesterol Nasal Screen MRSA (PCR) (Negative) Rheumatoid Factor Cycl Citrul Peptide IgG (0-4.99) U/ml YANNICK Screen Influenza Type A (PCR) (Neg) Influenza Type B (PCR) (Neg) PG Care Time/CCT Total # of Minutes Spent Total Time Spent with Patient: Total time spent is greater than 50% in coordination of care (as documented) at patient's floor/unit and/or counseling patient: (1) Leukocytosis Leukocytosis type: unspecified Qualified Code(s): D72.829 - Elevated white blood cell count, unspecified (2) Pneumonia Laterality: unspecified laterality Lung location: unspecified part of lung Pneumonia type: due to unspecified organism Qualified Code(s): J18.9 - Pneumonia, unspecified organism
--- NOTE | 2019-08-08 16:32 | Surgery Progress Note ---
Date of Service August 08, 2019 Assessment & Plan (1) Acute respiratory failure with hypoxia: (2) Pleural effusion, right: I had a long talk with Mr. Saunders today. We are going to proceed with a right thoracoscopy with a decortication of his right pleural cavity. I agree with Dr. Hawk that he may well have a collection of infected fluid but we did not tap it. Currently ask as if he has an empyema. We will get everything set up for his decortication on 08/10/2019. Subjective Mr. Saunders was seen today. He feels a bit better. Interestingly enough, his pleural fluid was a transudate pH of 7.49 with a glucose of 120. He feels better but is still requiring oxygen. His white count dropped from 33,002 a little over 24,000. He is afebrile. So no growth on the pleural fluid as of yet. Mr. Saunders was seen today. He feels a bit better. Interestingly enough, his pleural fluid was a transudate pH of 7.49 with a glucose of 120. He feels better but is still requiring oxygen. His white count dropped from 33,002 a little over 24,000. He is afebrile. So no growth on the pleural fluid as of yet. Physical Exam Physical Exam: He has decreased breath sounds on the right. Still appears to be a bit washed out. He also has 1+ edema of his lower legs. Results & Data Vital Signs (Past 12 Hours) Vital Signs Temp Pulse Resp BP Pulse Ox 08/08/19 15:18 36.7 C 95 H 18 121/77 92 08/08/19 07:21 36.5 C 68 20 126/77 93 08/08/19 07:17 88 20 93 PG Care Time/CCT Total # of Minutes Spent Total Time Spent with Patient: Total time spent is greater than 50% in coordination of care (as documented) at patient's floor/unit and/or counseling patient:
[2019-08-08] MEDS: PIPERACILLIN/TAZOBACTAM 3.375 GM in DEXTROSE 5% 100 ML IV SCH (16:48)
[2019-08-08] MEDS: ENOXAPARIN INJ 40 MG/0.4 ML SYR SQ SCH (20:21)
[2019-08-08] MEDS ORDERED: cefTRIAXone SODIUM 2,000 MG in DEXTROSE 5% 50 ML IV SCH (21:00)
[2019-08-09] MEDS: PIPERACILLIN/TAZOBACTAM 3.375 GM in DEXTROSE 5% 100 ML IV SCH ×4 (01:28→23:57)
[2019-08-09 06:03] LABS: Hematocrit (blood only) 40.4 % (42-52); Hemoglobin 13.8 g/dL (14.0-18.0); Mean Corpuscular Hemoglobin 31.2 pg (25-34); Mean Corpuscular Hgb Conc 34.2 g/dL (32-36); Mean Corpuscular Volume 91.4 fL (80-100); Mean Platelet Volume 9.6 fL (7.4-10.4); Platelet Count 286 K/uL (130-400); RDW Coefficient of Variation 13.3 % (11.5-14.5); RDW Standard Deviation 44.4 fL (36.4-46.3); Red Blood Count 4.42 M/uL (4.7-6.1); White Blood Count 27.81 K/uL (4.8-10.8)
[2019-08-09 06:25] LABS: Basophils # (auto) 0.01 K/uL (0-0.2); Immature Granulocytes # (auto) 0.13 K/uL (0.00-0.02); Immature Granulocytes % (auto) 0.5 %; Lymphocytes # (auto) 1.64 K/uL (1.2-3.4); Lymphocytes % (auto) 5.9 %; Monocytes # (auto) 2.11 K/uL (0.11-0.59); Monocytes % (auto) 7.6 %; Neutrophils # (auto) 23.92 K/uL (1.4-6.5); Toxic Vacuolation Occasional
[2019-08-09 06:47] LABS: Albumin Globulin Ratio 0.4 (0.9-2); Albumin Level 2.1 gm/dl (3.4-5.0); BUN Creatinine Ratio 26.9 (10-20); Bilirubin,Total 0.4 mg/dl (0.2-1); Calcium 9.6 mg/dl (8.5-10.1); Creatinine Clr Calc Pharmacy 73.5 ml/min; Est GFR (Non-African American) 81.1; Globulin 4.8 gm/dl (2.5-4.0); Potassium 4.3 mmol/L (3.5-5.1); Total Protein 6.9 gm/dl (6.4-8.2)
[2019-08-09] MEDS: EZETIMIBE 10 MG TABLET PO SCH (08:00)
[2019-08-09] MEDS: IRBESARTAN 150 MG TAB PO SCH (08:00)
[2019-08-09] MEDS: AZITHROMYCIN 250 MG TAB PO SCH (08:00)
[2019-08-09] MEDS: FAMOTIDINE 20 MG TAB PO SCH (08:00)
[2019-08-09] MEDS: METOPROLOL SUCC 25MG EXT REL TAB PO SCH (08:00)
--- NOTE | 2019-08-09 12:02 | Pulmonology Progress Note ---
Date of Service August 09, 2019 Assessment & Plan (1) Pleural effusion, right: Impression: 74-year-old male presenting with acute onset of cough, right- sided chest pain, and a loculated pleural effusion. Fluid studies from thoracentesis last night are relatively unremarkable. The clinical presentation is highly concerning for potential parapneumonic effusion including viral etiologies. The bland pleural fluid may be because the pockets may not communicate. Recommendations: 1. Complex pleural effusion: Await serological evaluation including YANNICK, ESR, rheumatoid factor, anti-CCP, and CRP. Procalcitonin is elevated at 1.29 suggestive of bacterial infection. I would still favor an infectious etiology and the patient is scheduled to undergo video-assisted thoracoscopic decortication within the next 24 hours 2. Pneumonia: Would continue broad-spectrum antibiotics. We will place the patient on Zosyn for anaerobic coverage given the appearance pending cultures. Will check procalcitonin. Discontinue vancomycin. Continue azithromycin for now. 3. Cough: Secondary to underlying lung process. We will provide the patient a trial of Tessalon Perles to see if these are beneficial with regards to his cough. 4. Additional recommendations will be based on thoracoscopic visualization and samples. (2) Pneumonia: Laterality: unspecified laterality Lung location: unspecified part of lung Pneumonia type: due to unspecified organism Qualified Code(s): J18.9 - Pneumonia, unspecified organism (3) Leukocytosis: Leukocytosis type: unspecified Qualified Code(s): D72.829 - Elevated white blood cell count, unspecified Subjective Patient continues to experience cough and right-sided chest pain. He feels fatigued. His oxygen requirement is stable. He does feel somewhat better with antibiotics but certainly his symptoms have not resolved. No fevers overnight Physical Exam Constitutional: WD/WN, vitals as above Neck: trachea midline, no thyromegaly Cardiovascular: RRR, no murmur, no edema Gastrointestinal (Abdomen): normal bowel sounds, soft, nontender, no hepatosplenomegaly Musculoskeletal: Extremities: extremities normal to inspection Skin: no rashes, warm and dry Lymphatic: no cervical lymphadenopathy Results & Data Vital Signs (Past 12 Hours) Vital Signs Temp Pulse Resp BP BP Pulse Ox 08/09/19 07:12 36.6 C 75 20 117/74 92 08/09/19 05:51 74 133/77 93 PG Care Time/CCT Total # of Minutes Spent Total Time Spent with Patient: Total time spent is greater than 50% in coordination of care (as documented) at patient's floor/unit and/or counseling patient:
--- NOTE | 2019-08-09 16:41 | Surgery Progress Note ---
Date of Service August 09, 2019 Assessment & Plan (1) Pleural effusion, right: I discussed this case with the pathologist and apparently the cytology is unusual. Does not appear to be a malignancy per se and it does not appear to be infected however we will try to get tissue tomorrow for frozen section to assess lipids. Not quite clear what is causing this effusion. We discussed the case again today and will proceed with a decortication evacuation of left pleural contents tomorrow thoracoscopically. Present on Admission?: Yes Subjective Patient is feeling better. Has been weaned off of oxygen and is ambulating in the hallway. He is eating better. Still has decreased breath sounds on the left. I try to get him on the schedule today but ran over. We will perform a decortication tomorrow. Physical Exam Physical Exam: Still has decreased breath sounds on the left but he is moving air better than when he came in. He has less edema in his lower legs since he is been walking and he did sleep in the bed last night. He looks better. Results & Data Vital Signs (Past 12 Hours) Vital Signs Temp Pulse Pulse Resp BP BP Pulse Ox 08/09/19 15:05 36.8 C 90 18 134/80 95 08/09/19 07:12 36.6 C 75 20 117/74 92 08/09/19 05:51 74 133/77 93 PG Care Time/CCT Total # of Minutes Spent Total Time Spent with Patient: Total time spent is greater than 50% in coordination of care (as documented) at patient's floor/unit and/or counseling patient:
--- NOTE | 2019-08-09 16:45 | Hospitalist Progress Note ---
Date of Service August 09, 2019 Assessment & Plan (1) Pneumonia: - Chest CT showed loculated right pleural effusion and extensive atelectasis of right lung. - Elevated procalcitonin and leukocytosis noted on admission c/w infection; leukocytosis improved with IV abx. - Influenza by PCR negative. Lactate was 2.1 then trended down. - Continue Zosyn & Azithromycin; d/c'ed Vanco. - Pulmonary & thoracic surgery following, recommend video assisted thoracoscopic decortication - will likely be completed on 08/10. - Tessalon perles and Albuterol prn. (2) Pleural effusion: - CT showed moderate right pleural effusion. - S/p thoracentesis on 08/07. 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 - Pulmonary team recommending video assisted thoracoscopic decortication - scheduled for 08/10. - YANNICK, Rheumatoid factor, anti-CCP pending; ESR was 87, CRP 27.50. - Appreciate thoracic surgery and pulmonary input. (3) Acute respiratory failure with hypoxia: - Has been requiring 2L via NC. - Wean oxygen as tolerated; likely related to PNA and pleural effusion. (4) Right-sided chest pain: - Likely related to acute inflammation in setting of cough. - EKG was negative overnight; no indication for further work up. - Tylenol prn mild pain; Tessolon perles for cough. - Consider NSAIDs for pain relief following completion of procedure on 08/10 -- Toradol vs. Ibuprofen. (5) Pulmonary nodules: - CT showed right internal mammary and right cardiophrenic angle/pericardial lymph nodes -- concerning for underlying malignancy in setting of weight loss. - Pulm following, appreciate input. - Pathology of pleural fluid negative for malignancy (see above) (6) CAD (coronary artery disease): - S/p stenting of mid left circumflex and overall left circumflex marginal in 2016. - Continue Metoprolol, statin and ezetimibe as prescribed. - Acute right sided chest pain as noted above. (7) Dyslipidemia: - Continue statin and zetia as prescribed. (8) HTN (hypertension): - Continue Irbesartan and Metoprolol as prescribed. (9) Leukocytosis: - Likely related to acute infection -- was improving, now trending up slightly. - Monitor daily. (10) Hyponatremia: - Na level 130 on admission, concern for SIADH related to underlying lung malignancy. - Continue to monitor, level is now WNL. (11) DVT prophylaxis: - Hold Lovenox for procedure. Dispo: Treatment of PNA/pleural effusion. Plan for procedure on 08/10. Will need PT/OT prior to discharge. Subjective Pt. did not sleep well last night due to cough and right sided chest pain. EKG was negative for acute changes. Chest pain is increased with coughing & deep inspiration, improved with Ibuprofen doses. Has yellow sputum production. Denies significant SOB, abd pain, N/V. Review of Systems Review of Systems: All systems reviewed & are unremarkable except as noted in HPI & below Constitutional: + fatigue and + weakness; no fever, no chills and no anorexia Respiratory: + cough, + sputum production and + wheezing; no dyspnea and no dyspnea on exertion Cardiovascular: + chest pain; no palpitations and no edema Gastrointestinal: no abdominal pain, no nausea, no vomiting and no constipation Genitourinary: no difficulty urinating Musculoskeletal: no back pain and no joint pain Integumentary: no non-healing lesions Physical Exam Physical Exam: General: Resting comfortably HEENT: NC/AT; PERRLA with EOMI; [place] conjunctiva, MMM. No erythema of posterior pharynx Neck: Supple and nontender Cardiac: RRR Lungs: on 2L via NC; crackles in bilat lung bases, otherwise clear throughout. Abdomen: Bowel normoactive X 4; Nontender to palpation Extremities: Warm. No edema present Neuro: No focal weakness Skin: No rash Results & Data Vital Signs (Past 12 Hours) Vital Signs Temp Pulse Pulse Resp BP BP Pulse Ox 08/09/19 15:05 36.8 C 90 18 134/80 95 08/09/19 07:12 36.6 C 75 20 117/74 92 08/09/19 05:51 74 133/77 93 Laboratory Results 08/09/19 08/09/19 08/09/19 Range/Units 14:28 05:34 05:34 WBC 27.81 H (4.8-10.8) K/uL RBC 4.42 L (4.7-6.1) M/uL Hgb 13.8 L (14.0-18.0) g/dL Hct 40.4 L (42-52) % MCV 91.4 (80-100) fL MCH 31.2 (25-34) pg MCHC 34.2 (32-36) g/dL RDW Std Deviation 44.4 (36.4-46.3) fL RDW Coeff of Carli 13.3 (11.5-14.5) % Plt Count 286 (130-400) K/uL MPV 9.6 (7.4-10.4) fL Immature Gran % (Auto) 0.5 % Neut % (Auto) 86.0 % Lymph % (Auto) 5.9 % Bradford % (Auto) 7.6 % Eos % (Auto) 0.0 % Baso % (Auto) 0.0 % Immature Gran # (Auto) 0.13 H (0.00-0.02) K/uL Neut # (Auto) 23.92 H (1.4-6.5) K/uL Lymph # (Auto) 1.64 (1.2-3.4) K/uL Bradford # (Auto) 2.11 H (0.11-0.59) K/uL Eos # (Auto) 0.00 (0-0.5) K/uL Baso # (Auto) 0.01 (0-0.2) K/uL Toxic Vacuolation Occasional Sodium 136 (136-145) mmol/L Potassium 4.3 (3.5-5.1) mmol/L Chloride 104 (98-107) mmol/L Carbon Dioxide 27 (21-32) mmol/L Anion Gap 5.0 (3-11) BUN 25 H D (7-18) mg/dl Creatinine 0.92 (0.6-1.4) mg/dl Est Cr Clr Drug Dosing 73.5 ml/min Est GFR ( Amer) 94.0 Est GFR (Non-Af Amer) 81.1 BUN/Creatinine Ratio 26.9 H (10-20) Glucose 132 H (70-99) mg/dl Calcium 9.6 (8.5-10.1) mg/dl Total Bilirubin 0.4 D (0.2-1) mg/dl AST 23 (15-37) U/L ALT 28 (12-78) U/L Alkaline Phosphatase 80 (45-117) U/L Total Protein 6.9 (6.4-8.2) gm/dl Albumin 2.1 L (3.4-5.0) gm/dl Globulin 4.8 H (2.5-4.0) gm/dl Albumin/Globulin Ratio 0.4 L (0.9-2) Specimen Hemolysis Blood Type A Positive Antibody Screen NEGATIVE PG Care Time/CCT Total # of Minutes Spent Total Time Spent with Patient: Total time spent is greater than 50% in coordination of care (as documented) at patient's floor/unit and/or counseling patient: (1) Leukocytosis Leukocytosis type: unspecified Qualified Code(s): D72.829 - Elevated white blood cell count, unspecified (2) Pneumonia Laterality: unspecified laterality Lung location: unspecified part of lung Pneumonia type: due to unspecified organism Qualified Code(s): J18.9 - Pneumonia, unspecified organism
[2019-08-10] MEDS ORDERED: MoRPHine SULFATE 2 MG/ML CARP IV STA ×2 (00:19→03:37)
--- NOTE | 2019-08-10 00:36 | Anesthesiology Consultation ---
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 PMH significant for HTN, HLD, and CAD s/p stenting in 2016. Pt is scheduled for VATs with decortication 08/10/19. History Surgery Operation Date: 08/09/19 14:40 Proposed Procedures p Right Video Assisted Thoracoscopy Decortication - Cleveland Huntley MD, FACS Height/Weight Height: 5 ft 5 in Weight: 94.9 kg Allergies Allergy/AdvReac Type Severity Reaction Status Date / Time NSAIDS (Non-Steroidal Allergy Mild ? Verified 07/26/19 14:52 Anti-Inflamma [id number] Reductase AdvReac Intermediate LEG Verified 07/26/19 14:52 Inhibitor CRAMPS, FLUSHED Cipro AdvReac Mild GI SYMPTOMS Verified 02/24/18 21:56 ciprofloxacin AdvReac Mild GI SYMPTOMS Verified 07/26/19 14:52 ranitidine AdvReac Mild TIRED Verified 07/26/19 14:52 aspirin AdvReac Unknown Verified 08/07/19 16:34 Medications Home Medications Medication Instructions Recorded Confirmed Last Taken albuterol sulfate 90 mcg/actuation 2 puffs INHALATION Q4H PRN gm 06/12/19 08/07/19 Unknown aerosol inhaler ezetimibe 10 mg tablet 10 mg PO DAILY #90 tab 06/12/19 08/07/19 Unknown fexofenadine 180 mg tablet 180 mg PO DAILY PRN tab 06/12/19 08/07/19 Unknown nitroglycerin 0.4 mg sublingual 0.4 mg SL Q5M PRN #1 tab 06/12/19 08/07/19 Unknown tablet famotidine 20 mg tablet 20 mg PO DAILY 07/26/19 08/07/19 Unknown ipratropium bromide 0.03 % nasal 2 sprays INTNAS BID 07/26/19 08/07/19 Unknown spray irbesartan 150 mg tablet 150 mg PO DAILY 07/26/19 08/07/19 Unknown rosuvastatin 5 mg tablet 5 mg PO WK 07/26/19 08/07/19 Unknown fluticasone propionate [Flovent 1 - 2 puff INHALATION UD PRN 08/07/19 08/07/19 Unknown HFA] ibuprofen [Advil] 200 mg PO Q6H PRN 08/07/19 08/07/19 08/07/19 metoprolol succinate [Toprol XL] 12.5 mg PO DAILY 08/07/19 08/07/19 Unknown Active Medications Generic Name Dose Route Start Last Admin Trade Name Freq PRN Reason Stop Dose Admin Azithromycin 250 mg 08/08/19 09:00 08/09/19 08:00 Zithromax PO 08/11/19 09:01 250 mg QAM NORMA Administration Ezetimibe 10 mg 08/08/19 09:00 08/09/19 08:00 Zetia PO 09/07/19 08:59 10 mg DAILY NORMA Administration Enoxaparin Sodium 40 mg 08/07/19 21:00 08/08/19 20:21 Lovenox SQ 09/06/19 20:59 40 mg Q24H NORMA Administration Famotidine 20 mg 08/08/19 09:00 08/09/19 08:00 Pepcid PO 09/07/19 08:59 20 mg DAILY NORMA Administration Piperacillin Sod/Tazobactam 115 mls @ 28.75 mls/hr 08/08/19 16:00 08/09/19 23:57 Sod 3.375 gm/ Dextrose IV 08/15/19 15:59 28.8 mls/hr Q8H NORMA Administration Protocol Ioversol 118 ml 08/07/19 16:26 08/07/19 16:26 Optiray 320 125ml IV 08/11/19 16:25 1 ml ONCE PRN Administration Interaction Checking Irbesartan 150 mg 08/08/19 09:00 08/09/19 08:00 Avapro PO 09/07/19 08:59 150 mg DAILY NORMA Administration Metoprolol Succinate 12.5 mg 08/08/19 09:00 08/09/19 08:00 Toprol Xl PO 09/07/19 08:59 12.5 mg DAILY NORMA Administration Rosuvastatin Calcium 5 mg 08/08/19 09:00 08/08/19 08:03 Crestor PO 09/07/19 08:59 Not Given Tu@0900 [facility] NPO Date Last Intake of Fluids: 08/09/19 Time Last Intake of Fluids: 00:00 Date Last Intake of Solids: 08/09/19 Time Last Intake of Solids: 00:00 Past Medical History Medical History Ascending cholangitis CAD (coronary artery disease) Dyslipidemia Elevated bilirubin Finger laceration (Resolved) HTN (hypertension) (Chronic) Pneumonia Past Family History Family History Father , Alcohol abuse led to his at 69. No problems noted. Mother , at 96 and was functional up to her . No problems noted. Other No significant family history Past Surgical History Surgical History H/O heart artery stent (Chronic) Social History Smoking Status: Former smoker Do You Dip or Chew Tobacco: No Hx Alcohol Use: Yes Alcohol type: beer alcohol intake frequency: 0-2 drinks per day Hx Substance Use: No Physical Exam Vital Signs Last Vital Signs Temp 36.8 C 08/09/19 15:05 Pulse 90 08/09/19 15:05 Resp 18 08/09/19 15:05 BP 134/80 08/09/19 15:05 Pulse Ox 95 08/09/19 15:05 Testing Laboratory Results 08/09/19 05:34 08/09/19 05:34 Blood Type A Positive 08/09/19 14:28 Antibody Screen NEGATIVE 08/09/19 14:28 08/07/19 16:16 Aerobic Blood Culture - Preliminary Blood No growth in Aerobic bottle after 48 hours. Anaerobic Blood Culture - Preliminary No growth in Anaerobic bottle after 48 hours. 08/07/19 16:16 Aerobic Blood Culture - Preliminary Blood No growth in Aerobic bottle after 48 hours. Anaerobic Blood Culture - Preliminary No growth in Anaerobic bottle after 48 hours. 08/07/19 21:42 Acid Fast Bacilli Smear - Final Pleural Fluid 08/07/19 21:42 Gram Stain - Final Pleural Fluid Aerobic and Anaerobic Culture - Preliminary No growth to date. Electrocardiogram Date: 08/09/19 Findings: + NSR @ (78), + LVH (minimal voltage criteria) and + no change from (08/07/19) Chest X-Ray Date: 08/07/19 Atherosclerosis of the aortic arch. Cardiac silhouette borderline enlarged. Mildly low lung volumes. Prone vascular prominence. Right basilar opacity likely represents fluid in the minor fissure as well as a basilar component of the pleural effusion. No pneumothorax. No large effusion on the left.. Degenerative changes of the thoracic spine and degenerative changes of the left glenohumeral joint. Upper abdomen normal. IMPRESSION: 1. Right pleural effusion with fluid in the fissure. No pneumothorax. 2. Low lung volumes with hypoventilatory changes. 3. Volume overload persists. No rocky pulmonary edema. Cardiac Catheterization Date: 01/27/16 normal left main, 30% early mid LAD stenosis, 99% mid left circumflex stenosis, normal right coronary artery, normal LV systolic function. He underwent deployment of a 3.5 x 22 mm Resolute drug eluting stent. No residual stenosis. The stent extended from the mid left circumflex and overall left circumflex marginal. DANIEL 3 flow. No evidence of coronary complications.
[2019-08-10 06:57] LABS: Hematocrit (blood only) 40.7 % (42-52); Hemoglobin 14.1 g/dL (14.0-18.0); Mean Corpuscular Hemoglobin 31.7 pg (25-34); Mean Corpuscular Hgb Conc 34.6 g/dL (32-36); Mean Corpuscular Volume 91.5 fL (80-100); Mean Platelet Volume 8.9 fL (7.4-10.4); Platelet Count 306 K/uL (130-400); RDW Coefficient of Variation 13.3 % (11.5-14.5); RDW Standard Deviation 44.3 fL (36.4-46.3); Red Blood Count 4.45 M/uL (4.7-6.1); White Blood Count 24.39 K/uL (4.8-10.8)
[2019-08-10 07:27] LABS: BUN Creatinine Ratio 29.1 (10-20); Creatinine Clr Calc Pharmacy 73.5 ml/min; Est GFR (Non-African American) 81.1; Potassium 3.8 mmol/L (3.5-5.1)
[2019-08-10] MEDS: FAMOTIDINE 20 MG TAB PO SCH (08:24)
[2019-08-10] MEDS: PIPERACILLIN/TAZOBACTAM 3.375 GM in DEXTROSE 5% 100 ML IV SCH ×2 (08:24→18:39)
[2019-08-10] MEDS: METOPROLOL SUCC 25MG EXT REL TAB PO SCH (08:24)
[2019-08-10] MEDS: AZITHROMYCIN 250 MG TAB PO SCH (08:24)
[2019-08-10] MEDS: IRBESARTAN 150 MG TAB PO SCH (08:24)
[2019-08-10] MEDS: EZETIMIBE 10 MG TABLET PO SCH (08:24)
[2019-08-10] MEDS ORDERED: VANCOMYCIN TROUGH ONE (08:30)
--- NOTE | 2019-08-10 08:52 | Pulmonology Progress Note ---
Date of Service August 10, 2019 Assessment & Plan (1) Pleural effusion, right: Impression: 74-year-old male presenting with acute onset of cough, right- sided chest pain, and a loculated pleural effusion. Fluid studies from thoracentesis are relatively unremarkable. Unclear significance of the cytology sample with foamy macrophages. The clinical presentation is highly concerning for potential parapneumonic effusion including viral etiologies. The bland pleural fluid may be because the pockets may not communicate. Recommendations: 1. Complex pleural effusion: Procalcitonin and WBC suggestive of infection. ESR and CRP suggestive of inflammatory etiology (including infection). Await VATS cultures and cytology. 2. Pneumonia: Would continue broad-spectrum antibiotics. Continue Zosyn pending cultures. Continue azithromycin for now. 3. Cough: Secondary to underlying lung process. Continue Tessalon Perles to see if these are beneficial with regards to his cough. 4. Additional recommendations will be based on thoracoscopic visualization and samples. (2) Pneumonia: Laterality: unspecified laterality Lung location: unspecified part of lung Pneumonia type: due to unspecified organism Qualified Code(s): J18.9 - Pneumonia, unspecified organism (3) Leukocytosis: Leukocytosis type: unspecified Qualified Code(s): D72.829 - Elevated white blood cell count, unspecified Subjective Pt continues to have R sided CP, now requiring narcotics. Occasional cough with clear phlegm. No hemoptysis. NPO for VATS today. Review of Systems 2 Review of Systems: unchanged from prior Physical Exam Constitutional: WD/WN, vitals as above Neck: trachea midline, no thyromegaly Respiratory: decreased BS R lung base. no wheezing Cardiovascular: RRR, no murmur, no edema Gastrointestinal (Abdomen): normal bowel sounds, soft, nontender, no hepatosplenomegaly Musculoskeletal: Extremities: extremities normal to inspection Skin: no rashes, warm and dry Lymphatic: no cervical lymphadenopathy Results & Data Vital Signs (Past 12 Hours) Vital Signs Temp Pulse Resp BP Pulse Ox 08/10/19 08:30 22 92 08/10/19 07:45 36.9 C 90 36 H 124/74 89 L Laboratory Results 08/10/19 06:40 08/10/19 06:40 Pleural fluid cytology: abundant foamy macrophages of unclear significance. ESR 87 CRP 27 AntiCCP negative Diagnostic Findings no new films. PG Care Time/CCT Total # of Minutes Spent Total Time Spent with Patient: Total time spent is greater than 50% in coordination of care (as documented) at patient's floor/unit and/or counseling patient:
--- NOTE | 2019-08-10 10:07 | History & Physical Bridge Note ---
Date of Service August 10, 2019 History & Physical Bridge Note I have examined the patient, reviewed the History & Physical and in the interval since the performance of the History & Physical I have noted the following changes of clinical significance: no changes noted
[2019-08-10] MEDS ORDERED: LIDOCAINE HCL 2% 2 ML VIAL/AMP(20MG/ML) INFIL ONE (11:08)
[2019-08-10] MEDS ORDERED: GLYCOPYRROLATE 0.2 MG/ML VIAL ONE (11:08)
[2019-08-10] MEDS ORDERED: PROPOFOL IV EMULSION 10 MG/ML 20 ML VIAL IV ONE (11:08)
[2019-08-10] MEDS ORDERED: fentaNYL citrate 100 MCG/2 ML VIAL ONE (11:08)
[2019-08-10] MEDS ORDERED: ONDANSETRON INJ 2 MG/ML 2 ML VIAL ONE (11:08)
[2019-08-10] MEDS ORDERED: ROCURONIUM BROMIDE 10 MG/ML 5 ML VIAL ONE (11:08)
[2019-08-10] MEDS ORDERED: NEOSTIGMINE METHYLSULFATE 5 MG/5 ML SYR ONE (11:08)
[2019-08-10] MEDS ORDERED: DEXAMETHASONE SOD INJ 4 MG/ML VIAL ONE (11:08)
[2019-08-10] MEDS ORDERED: HYDROmorphone INJ 2 MG/ML SYR/VIAL ONE (11:09)
[2019-08-10] MEDS ORDERED: MoRPHine SULFATE 2 MG/ML CARP IV PRN (11:13)
[2019-08-10] MEDS ORDERED: MoRPHine SULFATE 2 MG/ML CARP ONE (11:18)
[2019-08-10] MEDS ORDERED: BUPIVACAINE LIPOSOME 1.3% 266 MG/20 ML VIAL ONE (12:38)
[2019-08-10] MEDS ORDERED: SODIUM CHLORIDE 0.9% PF 50 ML VIAL ONE (12:38)
[2019-08-10] MEDS ORDERED: BUPIVACAINE 0.5 % 5 MG/1 ML MPF 30ML VIAL ONE (12:38)
[2019-08-10] MEDS ORDERED: PHENYLEPHRINE 100MCG/ML 5ML SYR ONE (13:33)
[2019-08-10] MEDS ORDERED: ePHEDrine sulfate 50 MG/ML SYR ONE (13:33)
[2019-08-10] MEDS ORDERED: HYDROmorphone INJ 1 MG/ML SYRINGE IV PRN (14:02)
[2019-08-10] MEDS ORDERED: ATROPINE SULFATE 0.1 MG/ML 10ML SYR IV PRN (14:02)
[2019-08-10] MEDS ORDERED: ONDANSETRON INJ 2 MG/ML 2 ML VIAL IV PRN (14:02)
[2019-08-10] MEDS ORDERED: ePHEDrine sulfate 50 MG/ML AMP IV PRN (14:02)
[2019-08-10] MEDS ORDERED: FLUMAZENIL 0.1 MG/1 ML 10 ML VIAL IV PRN (14:02)
[2019-08-10] MEDS ORDERED: PROMETHAZINE HCL 12.5 MG in SODIUM CHLORIDE 0.9% 50 ML IV PRN (14:02)
[2019-08-10] MEDS ORDERED: LABETALOL HCL IV 5 MG/ML 20ML IV PRN (14:02)
[2019-08-10] MEDS ORDERED: NALOXONE HCL 0.4 MG/1 ML VIAL/CARP IV PRN (14:02)
--- NOTE | 2019-08-10 14:40 | Hospitalist Progress Note ---
Date of Service August 10, 2019 Assessment & Plan (1) Pneumonia: - Chest CT showed loculated right pleural effusion and extensive atelectasis of right lung. - Elevated procalcitonin and leukocytosis noted on admission c/w infection; leukocytosis improving with abx. - Influenza by PCR negative. Lactate was 2.1 then trended down. - Continue Zosyn & Azithromycin (Day #4) - Pulmonary & thoracic surgery following, recommend video assisted thoracoscopic decortication - will be completed today. - Tessalon perles and Albuterol prn. (2) Pleural effusion: - CT showed moderate right pleural effusion. - S/p thoracentesis on 08/07. 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 - Pulmonary team recommending video assisted thoracoscopic decortication - scheduled today. - YANNICK, Rheumatoid factor, anti-CCP pending; ESR was 87, CRP 27.50. - Appreciate thoracic surgery and pulmonary input. (3) Acute respiratory failure with hypoxia: - Has been requiring 2L intermittently. - Likely related to PNA and pleural effusion. (4) Right-sided chest pain: - Likely related to acute inflammation in setting of cough. - EKG was negative. - Tylenol prn mild pain; Morphine IV prn severe pain. - Consider NSAIDs for pain relief following completion of procedure. (5) Pulmonary nodules: - CT showed right internal mammary and right cardiophrenic angle/pericardial lymph nodes -- concerning for underlying malignancy in setting of weight loss. - Pulm following, appreciate input. - Pathology of pleural fluid negative for malignancy (see above) (6) CAD (coronary artery disease): - S/p stenting of mid left circumflex and overall left circumflex marginal in 2016. - Continue Metoprolol, statin and ezetimibe as prescribed. - Right sided chest pain as noted above. (7) Dyslipidemia: - Continue statin and zetia as prescribed. (8) HTN (hypertension): - Continue Irbesartan and Metoprolol as prescribed. - BP was low this morning -- will continue to monitor. Consider holding PO meds if necessary. (9) Leukocytosis: - Likely related to acute infection -- improving. - Monitor daily. (10) Hyponatremia: - Na level 130 on admission, concern for SIADH related to underlying lung malignancy. - Currently at baseline. (11) DVT prophylaxis: - Hold Lovenox for procedure, can likely resume on 08/11 if ok'ed by pulm. Dispo: Treatment of PNA/pleural effusion. PT/OT ordered. Results & Data Vital Signs (Past 12 Hours) Vital Signs Temp Pulse Pulse Resp BP Pulse Ox 08/10/19 11:50 36.9 C 80 20 91/52 L 92 08/10/19 08:30 22 92 08/10/19 07:45 36.9 C 90 36 H 124/74 89 L Laboratory Results 08/10/19 08/10/19 08/09/19 Range/Units 06:40 06:40 14:28 WBC 24.39 H (4.8-10.8) K/uL RBC 4.45 L (4.7-6.1) M/uL Hgb 14.1 (14.0-18.0) g/dL Hct 40.7 L (42-52) % MCV 91.5 (80-100) fL MCH 31.7 (25-34) pg MCHC 34.6 (32-36) g/dL RDW Std Deviation 44.3 (36.4-46.3) fL RDW Coeff of Carli 13.3 (11.5-14.5) % Plt Count 306 (130-400) K/uL MPV 8.9 (7.4-10.4) fL Sodium 134 L (136-145) mmol/L Potassium 3.8 (3.5-5.1) mmol/L Chloride 103 (98-107) mmol/L Carbon Dioxide 25 (21-32) mmol/L Anion Gap 6.0 (3-11) BUN 27 H (7-18) mg/dl Creatinine 0.92 (0.6-1.4) mg/dl Est Cr Clr Drug Dosing 73.5 ml/min Est GFR ( Amer) 94.0 Est GFR (Non-Af Amer) 81.1 BUN/Creatinine Ratio 29.1 H (10-20) Glucose 111 H (70-99) mg/dl Calcium 9.0 (8.5-10.1) mg/dl Blood Type A Positive Antibody Screen NEGATIVE PG Care Time/CCT Total # of Minutes Spent Total Time Spent with Patient: Total time spent is greater than 50% in coordination of care (as documented) at patient's floor/unit and/or counseling patient: (1) Leukocytosis Leukocytosis type: unspecified Qualified Code(s): D72.829 - Elevated white blood cell count, unspecified (2) Pneumonia Laterality: unspecified laterality Lung location: unspecified part of lung Pneumonia type: due to unspecified organism Qualified Code(s): J18.9 - Pneumonia, unspecified organism
--- NOTE | 2019-08-10 14:57 | Operative Report ---
PG Post Operative Report Pre & Post Diagnosis Operation Date: 08/09/19 14:40 <No data on this case meets the specified criteria> Operation Date: 08/10/19 12:00 Pre-Op Diagnosis: Right Pleural Effusion Post-Op Diagnosis: Right Pleural Effusion; empyema I identified the patient and participated in the time-out.: Yes Procedure Operation Date: 08/09/19 14:40 <No data on this case meets the specified criteria> Operation Date: 08/10/19 12:00 Actual Procedures p Right Video Assisted Thoracoscopy with Decortication(Right) RUL wedge biopsy - Cleveland Huntley MD, FACS Surgeon Cleveland Huntley MD, FACS Civil Preparedness Officer Chel ESTEBAN Estimated Blood Loss 45 Findings Consistent with Post-Op Diagnosis Specimens Pleural fluid, visceral peel, parietal pleural peel, left upper lobe wedge biopsy Drains pleurx catheter 24 fr chest tube Anesthesia Type General Complications none Disposition Accompanied Patient To Recovery: No Disposition: Recovery Room Indications Complicated right pleural effusion Description of Procedure This 74-year-old male presented with signs and symptoms consistent with a pleural empyema and pneumonic process who had a thoracentesis on 08/07/2019. He had a complicated right pleural effusion. Surprisingly, the fluid did not indic ate an empyema but it was suggestive of a possible type of histiocytosis. As we did not completely drain this I brought the patient to the operating room today on 08/10/2019 and did a right thoracoscopy with a decortication extensively of the upper lobe and lower lobe and evacuation of empyema contents. Stat Gram stain showed gram-positive cocci. He tolerated well with negligible blood loss. I did leave a single indwelling pleural catheter as well as a 24 Ivorian chest tube in the right pleural cavity. Procedure: Patient was brought to the operating room and laid in the supine position. General anesthesia was induced and endotracheal intubation was performed the single-lumen tube. Patient was then turned into the left lateral decub position his right chest was prepped and draped you sterile fashion. After appropriate prophylactic antibiotics were given and a timeout was called a 5 m Thoracoport was placed anterior to the latissimus dorsi muscle just about the level of the scapular tip. Then placed another 5 mm port posterior to the scapular tip. It could be seen that there were adhesions of the lung and the chest wall came down quite easily. He had a murky fluid was drained and then we got into an obvious pus cavity down along the diaphragm. This was sent for stat Gram stain came back as many polys and gram-positive cocci. This was definitely an empyema. I then meticulously peeled the entire right lower lobe and majority of the upper lobe of the pleural peel. Then we drained all of the fluid and scraped the cavity that was at the diaphragmatic sulci. We clean this out completely. We opened up all pockets. We the upper lobe and lower lobe fissure and drained fluid out of this. We then irrigated the entire chest using sterile saline. Bleeding was controlled with cautery and with the aqua Mantis. 266 mg of Exparel were mixed with 30 cc of 0.5% bupivacaine and 250 cc of normal saline used to anesthetize each of the port sites and we then performed an intercostal block from the second 11th rib intrathoracic Jose by injecting into the interspace. 24 Ivorian chest tube was left through the 12 mm port which been placed inferiorly by the diaphragm. Sutured in place with heavy silk suture. A Pleurx catheter was placed in the anterior 5 mm port and placed along the diaphragm and posteriorly. These were held in place with heavy silk suture. 4 Monocryl was used in running septic or fashion approximate the wound edges posteriorly. Patient tolerated procedure well with negligible blood loss was awakened in the room and extubated and transported to the postanesthesia care unit stable condition. I attest to the content of the Intraoperative Record and any orders documented therein. Any exceptions are noted below.
--- NOTE | 2019-08-10 15:18 | XRay Report ---
XR chest 1V portable CLINICAL HISTORY: 74 years-old Male presenting with s/p decortication. TECHNIQUE: Portable upright AP view of the chest was obtained. COMPARISON: 08/07/2019. FINDINGS: Large bore right pleural drain position at the periphery of the right apex. This is new from prior. A therosclerosis of the aortic arch. Cardiac silhouette moderately enlarged. Persistent bandlike opacit y and poor aeration of the right lower lung. Suspected underlying right pleural effusion. No evidence of a pneumothorax allowing for portable technique. Pulmonary vascular prominence is evident. Osseous structures normal. Upper abdomen normal. IMPRESSION: 1. Cardiomegaly with volume overload. 2. Right pleural drain. No pneumothorax. 3. Extensive right basilar infiltrate and possible underlying effusion. Electronically signed by: Malcom Jamil M.D. 08/10/2019 3:16 PM
[2019-08-10 15:20] LABS: Glucose Pleural Fluid 10 mg/dl
[2019-08-10] MEDS ORDERED: METOCLOPRAMIDE HCL INJ 5 MG/ML 2 ML VIAL IV ONE (15:30)
[2019-08-10 15:59] LABS: LDH Pleural Fluid 5191 U/L
--- NOTE | 2019-08-10 16:01 | Anesthesiology Progress Note ---
Date of Service August 10, 2019 Anesthesia Post Procedure Vital Signs Vital Signs: Temp Pulse Pulse Pulse Resp BP Pulse Ox 08/10/19 15:45 67 21 114/65 90 08/10/19 15:35 90 27 H 124/66 88 L 08/10/19 15:25 92 H 22 110/60 91 08/10/19 15:15 99 H 23 100/60 91 08/10/19 15:09 36.4 C L 98 H 20 92/65 L 91 08/10/19 11:50 36.9 C 80 20 91/52 L 92 08/10/19 08:30 22 92 08/10/19 07:45 36.9 C 90 36 H 124/74 89 L Transfer of Care Handoff Completed per policy Notes Mental Status: alert / awake / arousable Patient Amnestic to Procedure: Yes Nausea / Vomiting: adequately controlled Pain: adequately controlled Airway Patency, RR, SpO2: stable & adequate BP & HR: stable & adequate Hydration State: stable & adequate Anesthetic Complications: no major complications apparent
[2019-08-10] MEDS: ACETAMINOPHEN 1,000 MG/100 ML VIAL IV SCH (17:48)
[2019-08-10] MEDS: D5W AND 1/2NSS 1,000 ML IV SCH (18:36)
[2019-08-10] MEDS ORDERED: Nursing to Pharmacy Communication ONE (19:06)
[2019-08-10] MEDS: DOCUSATE SODIUM 100 MG CAP PO SCH (21:00)
[2019-08-10] MEDS: METOCLOPRAMIDE HCL INJ 5 MG/ML 2 ML VIAL IV SCH (21:57)
[2019-08-11] MEDS: ACETAMINOPHEN 1,000 MG/100 ML VIAL IV SCH ×2 (01:03→09:10)
[2019-08-11] MEDS: PIPERACILLIN/TAZOBACTAM 3.375 GM in DEXTROSE 5% 100 ML IV SCH ×3 (01:26→17:24)
[2019-08-11] MEDS: D5W AND 1/2NSS 1,000 ML IV SCH (05:47)
[2019-08-11 05:57] LABS: Hematocrit (blood only) 40.4 % (42-52); Hemoglobin 13.6 g/dL (14.0-18.0); Mean Corpuscular Hemoglobin 30.8 pg (25-34); Mean Corpuscular Volume 91.6 fL (80-100); Mean Platelet Volume 8.8 fL (7.4-10.4); Platelet Count 257 K/uL (130-400); RDW Coefficient of Variation 13.4 % (11.5-14.5); RDW Standard Deviation 44.5 fL (36.4-46.3); Red Blood Count 4.41 M/uL (4.7-6.1); White Blood Count 24.96 K/uL (4.8-10.8)
[2019-08-11] MEDS: METOCLOPRAMIDE HCL INJ 5 MG/ML 2 ML VIAL IV SCH (06:03)
[2019-08-11 06:10] LABS: Mean Corpuscular Hgb Conc 33.7 g/dL (32-36)
[2019-08-11 06:18] LABS: Calcium 9.1 mg/dl (8.5-10.1); Creatinine Clr Calc Pharmacy 78.6 ml/min; Est GFR (African American) 98.3; Est GFR (Non-African American) 84.8; Potassium 4.3 mmol/L (3.5-5.1)
[2019-08-11 06:35] LABS: Basophils # (auto) 0.01 K/uL (0-0.2); Immature Granulocytes # (auto) 0.15 K/uL (0.00-0.02); Immature Granulocytes % (auto) 0.6 %; Lymphocytes # (auto) 1.81 K/uL (1.2-3.4); Lymphocytes % (auto) 7.3 %; Monocytes # (auto) 2.81 K/uL (0.11-0.59); Monocytes % (auto) 11.3 %; Neutrophils # (auto) 20.18 K/uL (1.4-6.5); Neutrophils % (auto) 80.8 %
--- NOTE | 2019-08-11 07:19 | XRay Report ---
XR chest 1V portable CLINICAL HISTORY: 74 years-old Male presenting with decortication. TECHNIQUE: Portable upright AP view of the chest was obtained. COMPARISON: 08/10/2019. FINDINGS: Prior right pleural drain at the apex has been removed or repositioned now terminating at the periphe ry of the right mid lung. An additional pleural drain is also in place in the posterior costophrenic sulcus on the right. Atherosclerosis of the aortic arch. Cardiac silhouette enlarged. Low lung volume s. Persistent right basilar patchy nodular opacity with suspected loculated fluid both in the fissure and at the lung base. Minimal patchy nodular opacities in the left lung more apparent on the current exam trace right apical pneumothorax may be present. Degenerative changes of the thoracic spine. Upp er abdomen normal. IMPRESSION: 1. 2 right pleural drains now in place with persistent right basilar infiltrate and loculated small right pleural effusion. 2. Suspected trace right apical pneumothorax. 3. Developing nodular opacities at the left lung base. Attention on follow-up to exclude developing infection. 4. Low lung volumes. 5. Cardiomegaly. Electronically signed by: Malcom Jamil M.D. 08/11/2019 7:17 AM
--- NOTE | 2019-08-11 07:41 | Pulmonology Progress Note ---
Date of Service August 11, 2019 Assessment & Plan (1) Pleural effusion, right: Impression: 74-year-old male presenting with acute onset of cough, right- sided chest pain, and a loculated pleural effusion. Status post VATS decortication for empyema. Recommendations: 1. Complex pleural effusion/empyema: ESR and CRP suggestive of inflammatory etiology (including infection). Await VATS cultures and cytology. 2. Pneumonia: Would continue broad-spectrum antibiotics. Continue Zosyn pending cultures. Continue azithromycin for now. 3. Cough: Secondary to underlying lung process. Continue Tessalon Perles to see if these are beneficial with regards to his cough. 4. Chest tube management per surgery. We will continue to follow. (2) Pneumonia: Laterality: unspecified laterality Lung location: unspecified part of lung Pneumonia type: due to unspecified organism Qualified Code(s): J18.9 - Pneumonia, unspecified organism (3) Leukocytosis: Leukocytosis type: unspecified Qualified Code(s): D72.829 - Elevated white blood cell count, unspecified Subjective Status post video-assisted thoracoscopic decortication yesterday. Peritoneal fluid was drained per OR report and discussion with thoracic surgery. The patient continues to feel fatigued. He is having some pain in his chest tube site but does feel somewhat better. No cough or sputum production. Vital signs reviewed. Review of Systems Review of Systems: unchanged from prior Physical Exam Constitutional: WD/WN, vitals as above Neck: trachea midline, no thyromegaly Respiratory: Chest tube in place with serosanguineous drainage. No air leak. Breath sounds decreased at the bases Cardiovascular: RRR, no murmur, no edema Gastrointestinal (Abdomen): normal bowel sounds, soft, nontender, no hepatosplenomegaly Musculoskeletal: Extremities: extremities normal to inspection Skin: no rashes, warm and dry Lymphatic: no cervical lymphadenopathy Results & Data Vital Signs (Past 12 Hours) Vital Signs Temp Pulse Pulse Resp BP Pulse Ox Pulse Ox 08/11/19 06:41 92 08/11/19 05:35 36.5 C 63 16 116/76 92 08/11/19 03:14 36.6 C 65 16 116/74 92 08/11/19 01:31 36.6 C 59 L 18 101/67 93 08/10/19 23:30 92 08/10/19 23:28 36.6 C 90 16 117/77 92 08/10/19 21:55 95 08/10/19 20:44 36.6 C 73 18 105/69 93 Laboratory Results 08/11/19 05:39 08/11/19 05:39 Microbiology 08/10/19 Unknown Lung,Right Upper Lobe Gram Stain - Final 08/10/19 Unknown Lung,Right Gram Stain - Final 08/10/19 Unknown Lung,Right Gram Stain - Final 08/07/19 16:16 Blood Aerobic Blood Culture - Preliminary No growth in Aerobic bottle after 48 hours. 08/07/19 16:16 Blood Anaerobic Blood Culture - Preliminary No growth in Anaerobic bottle after 48 hours. 08/07/19 16:16 Blood Aerobic Blood Culture - Preliminary No growth in Aerobic bottle after 48 hours. 08/07/19 16:16 Blood Anaerobic Blood Culture - Preliminary No growth in Anaerobic bottle after 48 hours. 08/07/19 21:42 Pleural Fluid Acid Fast Bacilli Smear - Final 08/07/19 21:42 Pleural Fluid Gram Stain - Final 08/07/19 21:42 Pleural Fluid Aerobic and Anaerobic Culture - Preliminary No growth to date. Diagnostic Findings Chest x-ray independently reviewed. Chest tube in place. Small right apical pneumothorax. Basilar atelectasis PG Care Time/CCT Total # of Minutes Spent Total Time Spent with Patient: Total time spent is greater than 50% in c oordination of care (as documented) at patient's floor/unit and/or counseling patient:
--- NOTE | 2019-08-11 08:10 | Anesthesiology Progress Note ---
Date of Service August 11, 2019 Anesthesia Post Procedure Vital Signs Vital Signs: Temp Pulse Pulse Pulse Resp BP BP 08/11/19 08:02 36.6 C 70 18 122/68 08/11/19 06:41 08/11/19 05:35 36.5 C 63 16 116/76 08/11/19 03:14 36.6 C 65 16 116/74 08/11/19 01:31 36.6 C 59 L 18 101/67 08/10/19 23:30 08/10/19 23:28 36.6 C 90 16 117/77 08/10/19 21:55 08/10/19 20:44 36.6 C 73 18 105/69 08/10/19 19:35 36.5 C 74 18 99/65 L 08/10/19 18:35 36.7 C 79 18 99/63 L 08/10/19 17:40 36.7 C 80 18 101/67 08/10/19 17:00 36.7 C 85 18 99/66 L 08/10/19 16:35 37.4 C 91 H 18 101/67 08/10/19 16:20 92 H 26 H 101/59 L 08/10/19 16:05 90 23 101/65 08/10/19 15:55 36.8 C 83 23 136/68 08/10/19 15:45 67 21 114/65 08/10/19 15:35 90 27 H 124/66 08/10/19 15:25 92 H 22 110/60 08/10/19 15:15 99 H 23 100/60 08/10/19 15:09 36.4 C L 98 H 20 92/65 L 08/10/19 11:50 36.9 C 80 20 91/52 L 08/10/19 08:30 22 Pulse Ox Pulse Ox 08/11/19 08:02 91 08/11/19 06:41 92 08/11/19 05:35 92 08/11/19 03:14 92 08/11/19 01:31 93 08/10/19 23:30 92 08/10/19 23:28 92 08/10/19 21:55 95 08/10/19 20:44 93 08/10/19 19:35 93 08/10/19 18:35 93 08/10/19 17:40 91 08/10/19 17:00 91 08/10/19 16:35 91 91 08/10/19 16:20 90 08/10/19 16:05 88 L 08/10/19 15:55 90 08/10/19 15:45 90 08/10/19 15:35 88 L 08/10/19 15:25 91 08/10/19 15:15 91 08/10/19 15:09 91 08/10/19 11:50 92 08/10/19 08:30 92 Pain Intensity Chest: Pain Intensity: 8 (with coughing. sitting at baseline its a 4-5/10) Notes Patient Amnestic to Procedure: Yes Nausea / Vomiting: adequately controlled Pain: adequately controlled Airway Patency, RR, SpO2: stable & adequate BP & HR: stable & adequate Hydration State: stable & adequate Anesthetic Complications: no major complications apparent
[2019-08-11] MEDS: AZITHROMYCIN 250 MG TAB PO SCH (08:27)
[2019-08-11] MEDS: FAMOTIDINE 20 MG TAB PO SCH (08:27)
[2019-08-11] MEDS: EZETIMIBE 10 MG TABLET PO SCH (08:27)
[2019-08-11] MEDS: DOCUSATE SODIUM 100 MG CAP PO SCH ×3 (08:28→20:32)
[2019-08-11] MEDS: IRBESARTAN 150 MG TAB PO SCH (08:28)
[2019-08-11] MEDS: METOPROLOL SUCC 25MG EXT REL TAB PO SCH (08:28)
[2019-08-11] MEDS: ENOXAPARIN INJ 40 MG/0.4 ML SYR SQ SCH (08:28)
[2019-08-11] MEDS: OXYCODONE HCL IR 5 MG TAB (IMMEDIATE RELEASE) PO PRN ×2 (08:55→20:31)
--- NOTE | 2019-08-11 09:43 | XRay Report ---
XR chest 1V portable HISTORY: Chest tube removal COMPARISON: Chest 08/11/2019. FINDINGS: Right basilar chest tube is unchanged in position. Right basilar densities and a small righ t pleural effusion persists. Patchy left basilar densities are also unchanged. No pneumothorax. The h eart remains mildly enlarged. There are low lung volumes. Small amount of subcutaneous emphysema with in the right lower chest wall. The second right pleural drain has been removed. IMPRESSION: 1. Interval removal of one of 2 right-sided pleural drains. The residual basilar drain remains unchan ged in position. No pneumothorax. 2. No change in the small right pleural effusion and bibasilar airspace opacities. Electronically signed by: Sheldon Mcpherson M.D. 08/11/2019 9:42 AM
[2019-08-11 10:22] LABS: ANA Screen Negative (Negative); Rheumatoid Factor 15 IU/ML (<14)
--- NOTE | 2019-08-11 12:29 | Surgery Progress Note ---
Date of Service August 11, 2019 Assessment & Plan (1) Pleural effusion: -concern for right sided empyema -thoracentesis performed on 08/07/19 -pH 7.49 -gram stain showed no organisms and culture (-) thus far -as effusion appeared complicated, pt. taken to OR for RVATS with decortication on 08/10/19: -gram stain of right upper lobe biopsy showed no organisms and culture is thus far (-) -gram stain of Right visceral peel showed no organisms, but culture has grown gram (-) rods -gram stain of pleural fluid showed gram (+) rods; culture has grown gram (-) rods -pt. is currently receiving antibiotic in the form of zosyn (day #4) -CXR today shows improvement -will follow serial CXR -no air leak noted in CT and minimal drainage so chest tube removed -pt. noted improved pain control after tube removed -pleurex catheter placed at time of surgery has small amount of drainage, but will leave in place for now and assess drainage each day -continue pain control measures -encourage coughing, deep breathing, use of IS, and ambulation -lovenox is in place for DVT prevention Subjective Pt. notes he is not overly SOB, but he reports significant pain that seems to be from his chest tube. Since surgery he has ambulated in hallway with assistance. He is tolerating oral intake without nausea or vomiting. He is voiding without difficulty. Physical Exam Constitutional: well developed and well nourished; no acute distress Neck: trachea midline Respiratory: normal respiratory effort; no respiratory distress and no labored breathing BS are decrease at bases bilaterally. Cardiovascular: Rate/Rhythm: regular rate and regular rhythm Gastrointestinal (Abdomen): Percussion/Palpation: abdomen nontender Musculoskeletal: no calf tenderness Results & Data Vital Signs (Past 12 Hours) Vital Signs Temp Pulse Pulse Pulse Resp BP BP 08/11/19 11:53 36.7 C 68 18 100/54 L 08/11/19 09:07 08/11/19 08:02 36.6 C 70 18 122/68 08/11/19 06:41 08/11/19 05:35 36.5 C 63 16 116/76 08/11/19 03:14 36.6 C 65 16 116/74 08/11/19 01:31 36.6 C 59 L 18 101/67 Pulse Ox Pulse Ox 08/11/19 11:53 92 08/11/19 09:07 91 08/11/19 08:02 91 08/11/19 06:41 92 08/11/19 05:35 92 08/11/19 03:14 92 08/11/19 01:31 93 PG Care Time/CCT Total # of Minutes Spent Total Time Spent with Patient: Total time spent is greater than 50% in coordination of care (as documented) at patient's floor/unit and/or counseling patient:
--- NOTE | 2019-08-11 13:14 | Hospitalist Progress Note ---
Date of Service August 11, 2019 Assessment & Plan (1) Pneumonia: - Chest CT showed loculated right pleural effusion and extensive atelectasis of right lung. - Elevated procal and leukocytosis on admission c/w infection --> procal and WBC improved with abx. - Influenza by PCR negative. - Continue Zosyn & Azithromycin (Day #5) - Pulmonary & thoracic surgery following, s/p RVATS with decortication on 08/10/19. (2) Pleural effusion: - CT showed moderate right pleural effusion - likely related to empyema. - S/p thoracentesis on 08/07. 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 - S/p RVATS with decortication on 08/10/19 - concern for empyema. - Gram stain obtained during procedure +gram neg bacilli (prelim) - Rheumatoid factor slightly elevated at 15; YANNICK and anti-CCP negative. - Appreciate thoracic surgery & pulmonary input. (3) Acute respiratory failure with hypoxia: - Has been requiring 2L intermittently. - Will need 2 step on discharge. (4) Right-sided chest pain: - Likely related to acute inflammation in setting of cough. - EKG was negative - not likely related to cardiac source. - Tylenol prn mild pain; Morphine IV prn severe pain. (5) Pulmonary nodules: - CT showed right internal mammary and right cardiophrenic angle/pericardial lymph nodes -- concerning for underlying malignancy in setting of weight loss. - Pulm following, appreciate input. - Pathology of pleural fluid negative for malignancy (see above) (6) CAD (coronary artery disease): - S/p stenting of mid left circumflex and overall left circumflex marginal in 2016. - Continue Metoprolol, statin and Ezetimibe as prescribed. (7) Dyslipidemia: - Continue statin and zetia as prescribed. (8) HTN (hypertension): - Continue Irbesartan and Metoprolol as prescribed. - BP has been intermittently low, will monitor. (9) Leukocytosis: - Likely related to acute infection -- remains elevated ~24. (10) Hyponatremia: - Na level 130 on admission, concern for SIADH related to underlying lung malignancy. - Currently improved back to baseline. (11) DVT prophylaxis: - Lovenox daily. Dispo: Treatment of PNA/pleural effusion. PT/OT for discharge planning. Will need 2 step on day of discharge. Subjective Pt. reports breathing is improved - he can take a deep breath without difficulty today. Chest tube was removed, has PleurX. Pain related to procedure is improving. PT/OT evaluation this afternoon for discharge planning. He has been requiring 2L via NC intermittently -- will need 2 step prior to discharge. Review of Systems Review of Systems: All systems reviewed & are unremarkable except as noted in HPI & below Constitutional: no fever, no chills, no fatigue and no weakness Respiratory: + dyspnea and + dyspnea on exertion; no cough and no wheezing Cardiovascular: no chest pain, no palpitations and no edema Gastrointestinal: no abdominal pain, no nausea and no constipation Genitourinary: no difficulty urinating Musculoskeletal: no back pain and no joint pain Integumentary: no non-healing lesions Physical Exam Physical Exam: General: Resting comfortably, his son was present at bedside. HEENT: NC/AT; PERRLA with EOMI; [place] conjunctiva, MMM. No erythema of posterior pharynx Neck: Supple and nontender Cardiac: RRR Lungs: 2L via NC; CTA Abdomen: Bowel normoactive X 4; Nontender to palpation Extremities: Warm. +1 non pitting edema of feet bilaterally. Neuro: No focal weakness Skin: No rash Results & Data Vital Signs (Past 12 Hours) Vital Signs Temp Pulse Pulse Pulse Resp BP BP 08/11/19 12:15 08/11/19 12:05 08/11/19 11:53 36.7 C 68 18 100/54 L 08/11/19 09:07 08/11/19 08:02 36.6 C 70 18 122/68 08/11/19 06:41 08/11/19 05:35 36.5 C 63 16 116/76 08/11/19 03:14 36.6 C 65 16 116/74 08/11/19 01:31 36.6 C 59 L 18 101/67 Pulse Ox Pulse Ox 08/11/19 12:15 96 08/11/19 12:05 86 L 08/11/19 11:53 92 08/11/19 09:07 91 08/11/19 08:02 91 08/11/19 06:41 92 08/11/19 05:35 92 08/11/19 03:14 92 08/11/19 01:31 93 Laboratory Results 08/11/19 08/11/19 08/11/19 Range/Units 05:39 05:39 05:39 WBC 24.96 H (4.8-10.8) K/uL RBC 4.41 L (4.7-6.1) M/uL Hgb 13.6 L (14.0-18.0) g/dL Hct 40.4 L (42-52) % MCV 91.6 (80-100) fL MCH 30.8 (25-34) pg MCHC 33.7 (32-36) g/dL RDW Std Deviation 44.5 (36.4-46.3) fL RDW Coeff of Carli 13.4 (11.5-14.5) % Plt Count 257 (130-400) K/uL MPV 8.8 (7.4-10.4) fL Immature Gran % (Auto) 0.6 % Neut % (Auto) 80.8 % Lymph % (Auto) 7.3 % [place] % (Auto) 11.3 % Eos % (Auto) 0.0 % Baso % (Auto) 0.0 % Immature Gran # (Auto) 0.15 H (0.00-0.02) K/uL Neut # (Auto) 20.18 H (1.4-6.5) K/uL Lymph # (Auto) 1.81 (1.2-3.4) K/uL [place] # (Auto) 2.81 H (0.11-0.59) K/uL Eos # (Auto) 0.00 (0-0.5) K/uL Baso # (Auto) 0.01 (0-0.2) K/uL Sodium 135 L (136-145) mmol/L Potassium 4.3 (3.5-5.1) mmol/L Chloride 104 (98-107) mmol/L Carbon Dioxide 27 (21-32) mmol/L Anion Gap 4.0 (3-11) BUN 18 (7-18) mg/dl Creatinine 0.86 (0.6-1.4) mg/dl Est Cr Clr Drug Dosing 78.6 ml/min Est GFR ( Amer) 98.3 Est GFR (Non-Af Amer) 84.8 BUN/Creatinine Ratio 21.0 H (10-20) Glucose 154 H (70-99) mg/dl Calcium 9.1 (8.5-10.1) mg/dl Procalcitonin 0.46 (0-0.5) ng/ml Pleural pH (7.3-7.4) Pleural LDH U/L Pleural Glucose mg/dl Pleural Cholesterol Rheumatoid Factor (<14) IU/ML YANNICK Screen (Negative) 08/10/19 08/10/19 08/08/19 Range/Units Unknown Unknown 10:44 WBC (4.8-10.8) K/uL RBC (4.7-6.1) M/uL Hgb (14.0-18.0) g/dL Hct (42-52) % MCV (80-100) fL MCH (25-34) pg MCHC (32-36) g/dL RDW Std Deviation (36.4-46.3) fL RDW Coeff of Carli (11.5-14.5) % Plt Count (130-400) K/uL MPV (7.4-10.4) fL Immature Gran % (Auto) % Neut % (Auto) % Lymph % (Auto) % [place] % (Auto) % Eos % (Auto) % Baso % (Auto) % Immature Gran # (Auto) (0.00-0.02) K/uL Neut # (Auto) (1.4-6.5) K/uL Lymph # (Auto) (1.2-3.4) K/uL [place] # (Auto) (0.11-0.59) K/uL Eos # (Auto) (0-0.5) K/uL Baso # (Auto) (0-0.2) K/uL Sodium (136-145) mmol/L Potassium (3.5-5.1) mmol/L Chloride (98-107) mmol/L Carbon Dioxide (21-32) mmol/L Anion Gap (3-11) BUN (7-18) mg/dl Creatinine (0.6-1.4) mg/dl Est Cr Clr Drug Dosing ml/min Est GFR ( Amer) Est GFR (Non-Af Amer) BUN/Creatinine Ratio (10-20) Glucose (70-99) mg/dl Calcium (8.5-10.1) mg/dl Procalcitonin (0-0.5) ng/ml Pleural pH 6.84 L (7.3-7.4) Pleural LDH 5191 U/L Pleural Glucose 10 mg/dl Pleural Cholesterol Rheumatoid Factor 15 H (<14) IU/ML YANNICK Screen Negative (Negative) 08/07/19 Range/Units 21:42 WBC (4.8-10.8) K/uL RBC (4.7-6.1) M/uL Hgb (14.0-18.0) g/dL Hct (42-52) % MCV (80-100) fL MCH (25-34) pg MCHC (32-36) g/dL RDW Std Deviation (36.4-46.3) fL RDW Coeff of Carli (11.5-14.5) % Plt Count (130-400) K/uL MPV (7.4-10.4) fL Immature Gran % (Auto) % Neut % (Auto) % Lymph % (Auto) % [place] % (Auto) % Eos % (Auto) % Baso % (Auto) % Immature Gran # (Auto) (0.00-0.02) K/uL Neut # (Auto) (1.4-6.5) K/uL Lymph # (Auto) (1.2-3.4) K/uL [place] # (Auto) (0.11-0.59) K/uL Eos # (Auto) (0-0.5) K/uL Baso # (Auto) (0-0.2) K/uL Sodium (136-145) mmol/L Potassium (3.5-5.1) mmol/L Chloride (98-107) mmol/L Carbon Dioxide (21-32) mmol/L Anion Gap (3-11) BUN (7-18) mg/dl Creatinine (0.6-1.4) mg/dl Est Cr Clr Drug Dosing ml/min Est GFR ( Amer) Est GFR (Non-Af Amer) BUN/Creatinine Ratio (10-20) Glucose (70-99) mg/dl Calcium (8.5-10.1) mg/dl Procalcitonin (0-0.5) ng/ml Pleural pH (7.3-7.4) Pleural LDH U/L Pleural Glucose mg/dl Pleural Cholesterol see note Rheumatoid Factor (<14) IU/ML YANNICK Screen (Negative) PG Care Time/CCT Total # of Minutes Spent Total Time Spent with Patient: Total time spent is greater than 50% in coordination of care (as documented) at patient's floor/unit and/or counseling patient: (1) Leukocytosis Leukocytosis type: unspecified Qualified Code(s): D72.829 - Elevated white blood cell count, unspecified (2) Pneumonia Laterality: unspecified laterality Lung location: unspecified part of lung Pneumonia type: due to unspecified organism Qualified Code(s): J18.9 - Pneumonia, unspecified organism
[2019-08-11] MEDS: ACETAMINOPHEN 325 MG TAB PO SCH ×2 (15:45→22:15)
[2019-08-11] MEDS: BENZONATATE 100 MG CAPSULE PO PRN (22:15)
[2019-08-12] MEDS: PIPERACILLIN/TAZOBACTAM 3.375 GM in DEXTROSE 5% 100 ML IV SCH ×3 (02:40→18:10)
[2019-08-12] MEDS: ACETAMINOPHEN 325 MG TAB PO SCH ×4 (02:47→21:06)
[2019-08-12] MEDS: OXYCODONE HCL IR 5 MG TAB (IMMEDIATE RELEASE) PO PRN ×3 (02:47→18:56)
[2019-08-12 06:13] LABS: Basophils # (auto) 0.02 K/uL (0-0.2); Basophils % (auto) 0.1 %; Eosinophils # (auto) 0.43 K/uL (0-0.5); Eosinophils % (auto) 1.8 %; Hematocrit (blood only) 43.8 % (42-52); Hemoglobin 14.9 g/dL (14.0-18.0); Immature Granulocytes # (auto) 0.31 K/uL (0.00-0.02); Immature Granulocytes % (auto) 1.3 %; Lymphocytes % (auto) 14.1 %; Mean Corpuscular Hemoglobin 31.6 pg (25-34); Monocytes # (auto) 2.57 K/uL (0.11-0.59); Monocytes % (auto) 10.6 %; Neutrophils # (auto) 17.45 K/uL (1.4-6.5); Neutrophils % (auto) 72.1 %; Platelet Count 341 K/uL (130-400); RDW Coefficient of Variation 13.3 % (11.5-14.5); RDW Standard Deviation 45.5 fL (36.4-46.3); Red Blood Count 4.71 M/uL (4.7-6.1); White Blood Count 24.18 K/uL (4.8-10.8)
[2019-08-12 06:28] LABS: Calcium 9.6 mg/dl (8.5-10.1); Creatinine Clr Calc Pharmacy 67.6 ml/min; Est GFR (Non-African American) 73.3
[2019-08-12] MEDS ORDERED: INFLUENZA VACCINE HIGH DOSE 65+ 0.5 ML SYR IM ONE (08:00)
[2019-08-12] MEDS ORDERED: INFLUENZA ADMINISTRATION CHARGE ONE (08:00)
--- NOTE | 2019-08-12 08:30 | Surgery Progress Note ---
Date of Service August 12, 2019 Assessment & Plan (1) Pleural effusion: -concern for right sided empyema -thoracentesis performed on 08/07/19 -pH 7.49 -gram stain showed no organisms and culture (-) thus far -as effusion appeared complicated, pt. taken to OR for RVATS with decortication on 08/10/19: -gram stain of right upper lobe biopsy showed no organisms and culture is thus far (-) -gram stain of Right visceral peel showed no organisms, but culture has grown Citrobacter -culture of pleural fluid showed Citrobacter -pt. is currently receiving antibiotic in the form of zosyn (day #5): -bacteria noted on culture is sensitive to this organism -CXR today shows right sided atelectasis vs. effusion -will follow serial CXR -pleurex catheter placed at time of surgery continues to have only small amount of drainage: -will leave in place for now and assess drainage each day -if minimal drainage tomorrow and concern for effusion on CXR tomorrow may consider placing TPA in catheter to ensure patency -continue pain control measures -encourage coughing, deep breathing, use of IS, and ambulation -pt. has been intermittently weaned off oxygen -lovenox is in place for DVT prevention Subjective Pt. notes improved michaels control since chest tube removed. He has been ambulating in hallway. Tolerating diet and voiding without difficulty. Physical Exam Constitutional: well developed and well nourished; no acute distress Neck: trachea midline Respiratory: normal respiratory effort; no respiratory distress and no labored breathing BS are decreased at bases R>L Cardiovascular: Rate/Rhythm: regular rate and regular rhythm Gastrointestinal (Abdomen): Percussion/Palpation: abdomen nontender Musculoskeletal: no calf tenderness Results & Data Vital Signs (Past 12 Hours) Vital Signs Temp Pulse Pulse Resp BP BP Pulse Ox 08/12/19 07:16 36.8 C 76 16 103/64 90 08/12/19 06:04 90 08/11/19 23:30 36.8 C 82 16 110/66 92 PG Care Time/CCT Total # of Minutes Spent Total Time Spent with Patient: Total time spent is greater than 50% in coordination of care (as documented) at patient's floor/unit and/or counseling patient:
[2019-08-12] MEDS: METOPROLOL SUCC 25MG EXT REL TAB PO SCH (08:46)
[2019-08-12] MEDS: DOCUSATE SODIUM 100 MG CAP PO SCH ×2 (08:46→21:06)
[2019-08-12] MEDS: ENOXAPARIN INJ 40 MG/0.4 ML SYR SQ SCH (08:47)
[2019-08-12] MEDS: EZETIMIBE 10 MG TABLET PO SCH (08:47)
[2019-08-12] MEDS: FAMOTIDINE 20 MG TAB PO SCH (08:48)
[2019-08-12] MEDS: BENZONATATE 100 MG CAPSULE PO PRN ×2 (10:25→21:02)
--- NOTE | 2019-08-12 10:28 | XRay Report ---
SINGLE VIEW CHEST CLINICAL HISTORY: Pleural effusion. FINDINGS: An AP, portable, upright chest radiograph is compared to study dated 08/11/2019 and correla bentley with chest CT dated 08/07/2019. The examination is degraded by portable technique and patient rot ation. The heart is mildly enlarged noting atherosclerotic calcification of the thoracic aorta. The p ulmonary vasculature is noncongested. A pleural drain the right lung base is unchanged in position. T here is a small right pleural effusion and bibasilar atelectasis. No pneumothorax is seen. The skelet al structures are osteopenic. The bony thorax is grossly intact. Subcutaneous emphysema is noted in t he right chest wall. IMPRESSION: 1. No significant change from yesterday. 2. A pleural drain is again seen at the right lung base. There is a small residual right pleural effu richard and bibasilar atelectasis. Electronically signed by: Harrison Allen M.D. 08/12/2019 10:27 AM
--- NOTE | 2019-08-12 11:22 | Pulmonology Progress Note ---
Date of Service August 12, 2019 74-year-old white male that is post VATS decortication for empyema currently feels poorly with persistent cough and difficulty expectorating. Patient gives history of a chronic cough for many months and have been evaluated by ENT in the past and felt to be secondary to reflux that was chronic. Patient's basically had a week of cough fever and worsening respiratory status. He underwent a VATS procedure with decortication with Dr. Huntley on 08/10/2019. Left upper lobe wedge biopsy in addition to drainage of the pleural fluid and decortication of both the visceral and parietal pleura were performed. No obvious history of aspiration per patient's coughing became so severe the day of admission that is led to an emesis. Inflammatory markers were elevated and the culture today grew out Citrobacter braakii sensitivities pending. Should be sensitive to IV Zosyn. Chest x-ray shows no significant change from yesterday with a pleural drain still present at the right lung base. A small residual right pleural effusion with bibasilar atelectasis is noted. Review of the CTA showed no evidence of pulmonary embolic disease there is pathologic right internal mammary and right cardiophrenic angle/pericardial lymph nodes that appeared to be concerning for possible underlying malignancy versus reactive lymphadenopathy. Loculated right pleural effusion is noted with extensive atelectasis right lung. Assessment & Plan (1) Status post lung surgery: (2) Allergic rhinitis: (3) CAD in [place] artery: (4) Chronic cough: (5) Laryngopharyngeal reflux disease: (6) Right-sided chest pain: (7) Acute respiratory failure with hypoxia: (8) Empyema of lung: Patient appears to be on adequate antibiotic coverage. Will step up airway clearance maneuvers with aerosolized bronchodilator and hypertonic saline along with flutter valve and vibration vest if tolerated. Review of Systems Constitutional: no problem reported Eyes: no problem reported Ear, Nose, Mouth, Throat: no problem reported Respiratory: no problem reported Cardiovascular: no problem reported Gastrointestinal: no problem reported Genitourinary: no problem reported Musculoskeletal: no problem reported Integumentary: no problem reported Neurologic: no problem reported Psychiatric: no problem reported Endocrine: no problem reported Hematologic / Lymphatic: no problem reported Allergy / Immunological: no problem reported Physical Exam Constitutional: well developed and well nourished; no acute distress Eyes: PERRL, conjunctivae normal, anicteric sclerae ENMT: external ear and nose normal, oropharynx normal Neck: trachea midline, no thyromegaly Respiratory: normal respiratory effort Auscultation: + diminished lung sounds (Right base with scattered rhonchi) Cardiovascular: RRR, no murmur, no edema Palpation: normal PMI; no thrill Gastrointestinal (Abdomen): normal bowel sounds, soft, nontender, no hepatosplenomegaly Musculoskeletal: no cyanosis or clubbing, extremities motor strength 5/5 Gait: normal gait Skin: no rashes, warm and dry Neurologic: PERRL, EOMI, accommodation nl, no face palsy, no dysarthria Psychiatric: A+Ox3, euthymic affect Lymphatic: no cervical or axillary lymphadenopathy Results & Data Vital Signs (Past 12 Hours) Vital Signs Temp Pulse Pulse Resp BP BP Pulse Ox 08/12/19 07:45 08/12/19 07:16 36.8 C 76 16 103/64 90 08/12/19 06:04 90 08/11/19 23:30 36.8 C 82 16 110/66 92 Pulse Ox 08/12/19 07:45 87 L 08/12/19 07:16 08/12/19 06:04 08/11/19 23:30 PG Care Time/CCT Total # of Minutes Spent Total Time Spent with Patient: Total time spent is greater than 50% in coordination of care (as documented) at patient's floor/unit and/or counseling patient:
--- NOTE | 2019-08-12 12:18 | Hospitalist Progress Note ---
Date of Service August 12, 2019 Assessment & Plan (1) Pneumonia: - Chest CT showed loculated right pleural effusion and extensive atelectasis of right lung. - Elevated procal and leukocytosis on admission c/w infection --> procal and WBC improved with abx. - Influenza by PCR negative. - Continue Zosyn (Day #6); completed Azithromycin course. - Xopenex q6hr, Sodium chloride neb BID scheduled with Albuterol prn. - Pulmonary & thoracic surgery following, s/p RVATS with decortication on 08/10/19. (2) Pleural effusion: - CT showed moderate right pleural effusion - likely related to empyema. - S/p thoracentesis on 08/07. 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 - S/p RVATS with decortication on 08/10/19 - concern for empyema. - Gram stain obtained during procedure +Citrobacter braakii. - Rheumatoid factor slightly elevated at 15; YANNICK and anti-CCP negative. - Appreciate thoracic surgery & pulmonary input. Chest tube removed 08/11; has PleurX catheter, minimal drainage. May require TPA tomorrow if no improvement. - Continue IV abx until approaching discharge date. (3) Acute respiratory failure with hypoxia: - Has been requiring 2L intermittently. - 2 step on discharge. (4) Right-sided chest pain: - Likely related to acute inflammation in setting of cough & PleurX catheter. - EKG was negative - not likely related to cardiac source. - Tylenol prn mild pain; Oxycodone for severe pain. (5) Pulmonary nodules: - CT showed right internal mammary and right cardiophrenic angle/pericardial lymph nodes -- concern for underlying malignancy in setting of weight loss. - Pulm following, appreciate input. - Pathology of pleural fluid negative for malignancy (see above) (6) CAD (coronary artery disease): - S/p stenting of mid left circumflex and overall left circumflex marginal in 2016. - Continue Metoprolol, statin and Ezetimibe as prescribed. (7) Dyslipidemia: - Continue statin and zetia as prescribed. (8) HTN (hypertension): - Continue Metoprolol as prescribed. - BP has been low, will hold Irbesartan. (9) Leukocytosis: - Likely related to acute infection -- remains elevated ~24. (10) Hyponatremia: - Na level 130 on admission, concern for SIADH related to underlying lung malignancy. - Improved back to baseline. (11) DVT prophylaxis: - Lovenox daily. Dispo: Treatment of PNA/pleural effusion. PT/OT for discharge planning. Will need 2 step on day of discharge. PT/OT recommending home with home health. Subjective Pt. has productive cough, no improvement. C/o SOB with exertion. Has pain at site of PleurX site, using pain meds prn. Review of Systems Review of Systems: All systems reviewed & are unremarkable except as noted in HPI & below Constitutional: no fever, no chills, no fatigue and no weakness Respiratory: + cough, + dyspnea on exertion and + sputum production; no dyspnea and no wheezing Cardiovascular: + chest pain; no palpitations and no edema Gastrointestinal: no abdominal pain, no nausea and no constipation Genitourinary: no difficulty urinating Musculoskeletal: no back pain and no joint pain Integumentary: no non-healing lesions Physical Exam Physical Exam: General: Resting comfortably, his son was present at bedside. HEENT: NC/AT; PERRLA with EOMI; [place] conjunctiva, MMM. No erythema of posterior pharynx Neck: Supple and nontender Cardiac: RRR Lungs: 2L via NC; scattered wheezing noted throughout. Abdomen: Bowel normoactive X 4; Nontender to palpation Extremities: Warm. No edema noted. Neuro: No focal weakness Skin: No rash Results & Data Vital Signs (Past 12 Hours) Vital Signs Temp Pulse Resp BP Pulse Ox Pulse Ox 08/12/19 07:45 87 L 08/12/19 07:16 36.8 C 76 16 103/64 90 08/12/19 06:04 90 Laboratory Results 08/12/19 08/12/19 Range/Units 06:02 06:02 WBC 24.18 H (4.8-10.8) K/uL RBC 4.71 (4.7-6.1) M/uL Hgb 14.9 (14.0-18.0) g/dL Hct 43.8 (42-52) % MCV 93.0 (80-100) fL MCH 31.6 (25-34) pg MCHC 34.0 (32-36) g/dL RDW Std Deviation 45.5 (36.4-46.3) fL RDW Coeff of Carli 13.3 (11.5-14.5) % Plt Count 341 (130-400) K/uL MPV 9.0 (7.4-10.4) fL Immature Gran % (Auto) 1.3 % Neut % (Auto) 72.1 % Lymph % (Auto) 14.1 % [place] % (Auto) 10.6 % Eos % (Auto) 1.8 % Baso % (Auto) 0.1 % Immature Gran # (Auto) 0.31 H (0.00-0.02) K/uL Neut # (Auto) 17.45 H (1.4-6.5) K/uL Lymph # (Auto) 3.40 (1.2-3.4) K/uL [place] # (Auto) 2.57 H (0.11-0.59) K/uL Eos # (Auto) 0.43 (0-0.5) K/uL Baso # (Auto) 0.02 (0-0.2) K/uL Sodium 134 L (136-145) mmol/L Potassium 4.0 (3.5-5.1) mmol/L Chloride 100 (98-107) mmol/L Carbon Dioxide 27 (21-32) mmol/L Anion Gap 7.0 (3-11) BUN 23 H (7-18) mg/dl Creatinine 1.00 (0.6-1.4) mg/dl Est Cr Clr Drug Dosing 67.6 ml/min Est GFR ( Amer) 85.0 Est GFR (Non-Af Amer) 73.3 BUN/Creatinine Ratio 23.0 H (10-20) Glucose 129 H (70-99) mg/dl Calcium 9.6 (8.5-10.1) mg/dl PG Care Time/CCT Total # of Minutes Spent Total Time Spent with Patient: Total time spent is greater than 50% in coordination of care (as documented) at patient's floor/unit and/or counseling patient: (1) Leukocytosis Leukocytosis type: unspecified Qualified Code(s): D72.829 - Elevated white blood cell count, unspecified (2) Pneumonia Laterality: unspecified laterality Lung location: unspecified part of lung Pneumonia type: due to unspecified organism Qualified Code(s): J18.9 - Pneumonia, unspecified organism
[2019-08-12] MEDS: LEVALBUTEROL 1.25MG/0.5ML NEB NEB SCH ×2 (12:54→20:58)
[2019-08-12] MEDS: MoRPHine SULFATE 2 MG/ML CARP IV PRN ×2 (15:01→21:02)
[2019-08-12] MEDS: SODIUM CHLOR 7% 4 ML NEB NEB SCH (20:58)
[2019-08-13] MEDS: PIPERACILLIN/TAZOBACTAM 3.375 GM in DEXTROSE 5% 100 ML IV SCH ×3 (01:06→18:14)
[2019-08-13] MEDS: LEVALBUTEROL 1.25MG/0.5ML NEB NEB SCH ×5 (01:07→19:59)
[2019-08-13] MEDS: OXYCODONE HCL IR 5 MG TAB (IMMEDIATE RELEASE) PO PRN ×2 (03:12→10:24)
[2019-08-13] MEDS: ACETAMINOPHEN 325 MG TAB PO SCH ×4 (03:13→21:42)
--- NOTE | 2019-08-13 06:54 | Surgery Progress Note ---
Date of Service August 13, 2019 Assessment & Plan (1) Pleural effusion: -concern for right sided empyema -thoracentesis performed on 08/07/19 -pH 7.49 -gram stain showed no organisms and culture remains (-) -as effusion appeared complicated, pt. taken to OR for RVATS with decortication on 08/10/19: -gram stain of right upper lobe biopsy showed no organisms and culture is thus far (-) -gram stain of Right visceral peel showed no organisms, but culture has grown Citrobacter -culture of pleural fluid showed Citrobacter -pt. is currently receiving antibiotic in the form of zosyn (day #6): -bacteria noted on culture is sensitive to this organism -CXR today again shows right sided atelectasis vs. effusion -will continue to follow serial CXR -pleurex catheter placed at time of surgery noted to only small amount of drainage last 2 days: -due to CXR findings and minimal drainage, I placed 2 mg of alteplase in 6 cc of sterile saline through pleurex; RN to drain in 2 hours -continue pain control measures -continue to encourage coughing, deep breathing, use of IS, and ambulation -pt. has been intermittently weaned off oxygen -lovenox is in place for DVT prevention Subjective Pt. notes a rough night--he is tired as he has been sleeping poorly due to coughing a great deal. He has been ambulating in hallway. He notes his apatite is poor. No fevers, shakes, chills. Physical Exam Constitutional: well developed and well nourished; no acute distress Neck: trachea midline Respiratory: normal respiratory effort; no respiratory distress BS are noted to be decreased at bases, R>L Musculoskeletal: no calf tenderness Results & Data Vital Signs (Past 12 Hours) Vital Signs Temp Pulse Pulse Resp BP Pulse Ox 08/13/19 01:19 82 22 91 08/12/19 23:30 37.1 C 81 20 128/76 92 08/12/19 20:59 88 18 94 PG Care Time/CCT Total # of Minutes Spent Total Time Spent with Patient: Total time spent is greater than 50% in coordination of care (as documented) at patient's floor/unit and/or counseling patient:
[2019-08-13] MEDS ORDERED: ALTEPLASE, RECOMBINANT 1 MG/ML 2ML VIAL IV ONE (07:30)
--- NOTE | 2019-08-13 07:36 | XRay Report ---
XR chest 1V portable CLINICAL HISTORY: empyema dyspnea COMPARISON STUDY: 08/12/2019 FINDINGS: Left lung remains grossly clear. Minimal residual atelectasis left base is unchanged. Pleural drain. Base is unchanged. There is a small residual right pleural effusion. There is unchange d infiltrative changes of the right mid and lower lung. IMPRESSION: Unchanged parenchymal infiltrative changes right hemithorax with a small unchanging righ t basilar pleural effusion. No change the prior study. The above report was generated using voice recognition software. It may contain grammatical, syntax or spelling errors. Electronically signed by: Yusuf Moreland M.D. 08/13/2019 7:35 AM
[2019-08-13] MEDS: SODIUM CHLOR 7% 4 ML NEB NEB SCH ×2 (07:44→19:59)
[2019-08-13] MEDS: MoRPHine SULFATE 2 MG/ML CARP IV PRN ×4 (08:11→21:42)
[2019-08-13] MEDS: DOCUSATE SODIUM 100 MG CAP PO SCH ×2 (08:49→21:47)
[2019-08-13] MEDS: FAMOTIDINE 20 MG TAB PO SCH (08:50)
[2019-08-13] MEDS: ENOXAPARIN INJ 40 MG/0.4 ML SYR SQ SCH (08:50)
[2019-08-13] MEDS: EZETIMIBE 10 MG TABLET PO SCH (08:50)
[2019-08-13] MEDS: METOPROLOL SUCC 25MG EXT REL TAB PO SCH (08:50)
--- NOTE | 2019-08-13 12:52 | Hospitalist Progress Note ---
Date of Service August 13, 2019 Assessment & Plan (1) Pneumonia: - Chest CT showed loculated right pleural effusion and extensive atelectasis of right lung. - Elevated procal and leukocytosis on admission c/w infection --> Procal trended down with abx. - Influenza by PCR negative. - Continue Zosyn (Day #7); completed Azithromycin course. - Xopenex q6hr, Sodium chloride neb BID scheduled with Albuterol prn. - Pulmonary & thoracic surgery following, s/p RVATS with decortication on . (2) Pleural effusion: - CT showed moderate right pleural effusion - likely related to empyema. - S/p thoracentesis on 08/07. 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 - S/p RVATS with decortication on 08/10/19 - concern for empyema. - Pleural fluid culture obtained during procedure +Citrobacter braakii. - Rheumatoid factor slightly elevated at 15; YANNICK and anti-CCP negative. - Appreciate thoracic surgery & pulm input. Chest tube removed 08/11; has PleurX catheter, required TPA this morning due to minimal output. - Continue IV abx until he is approaching discharge date. (3) Acute respiratory failure with hypoxia: - Has been requiring 2L via NC. - Suggest 2 step on discharge. (4) Right-sided chest pain: - Likely related to acute inflammation in setting of cough & PleurX catheter. - EKG was negative - not likely related to cardiac source. - Tylenol prn mild pain; Oxycodone for severe pain. (5) Pulmonary nodules: - CT showed right internal mammary and right cardiophrenic angle/pericardial lymph nodes -- concern for underlying malignancy in setting of weight loss. - Pulm following, appreciate input. - Pathology of pleural fluid negative for malignancy (see above) (6) CAD (coronary artery disease): - S/p stenting of mid left circumflex and overall left circumflex marginal in 2016. - Continue Metoprolol, statin and Ezetimibe as prescribed. (7) Dyslipidemia: - Continue statin and zetia as prescribed. (8) HTN (hypertension): - Continue Metoprolol as prescribed. - BP has been low, holding home Irbesartan. (9) Leukocytosis: - Likely related to acute infection -- remains elevated. (10) Hyponatremia: - Na level 130 on admission, concern for SIADH related to underlying lung malignancy. - Improved back to baseline. (11) DVT prophylaxis: - Lovenox daily. Dispo: Treatment of PNA/pleural effusion/empyema. Recommend 2 step on day of discharge. PT/OT recommending home with home health. Discharge pending thoracic surgery recs regarding management of PleurX. Subjective Pt. c/o cough with sputum production and right sided chest pain -- pain increase d with coughing episodes. Remains on 2L via NC. Denies shortness of breath. Review of Systems Review of Systems: All systems reviewed & are unremarkable except as noted in HPI & below Constitutional: no fever, no chills, no fatigue, no weakness and no anorexia Respiratory: + cough, + dyspnea, + dyspnea on exertion and + sputum production; no wheezing Cardiovascular: + chest pain; no palpitations and no edema Gastrointestinal: no abdominal pain, no nausea and no constipation Genitourinary: no difficulty urinating Musculoskeletal: no back pain and no joint pain Integumentary: no non-healing lesions Physical Exam Physical Exam: General: Resting comfortably. HEENT: NC/AT; PERRLA with EOMI; [place] conjunctiva, MMM. No erythema of posterior pharynx Neck: Supple and nontender Cardiac: RRR Lungs: 2L via NC; diminished throughout. Abdomen: Bowel normoactive X 4; Nontender to palpation Extremities: Warm. No edema noted. Neuro: No focal weakness Skin: No rash Results & Data Vital Signs (Past 12 Hours) Vital Signs Temp Pulse Pulse Resp Pulse Ox 08/13/19 07:48 78 92 08/13/19 07:17 36.8 C 75 18 93 08/13/19 01:19 82 22 91 PG Care Time/CCT Total # of Minutes Spent Total Time Spent with Patient: Total time spent is greater than 50% in coordination of care (as documented) at patient's floor/unit and/or counseling patient: (1) Leukocytosis Leukocytosis type: unspecified Qualified Code(s): D72.829 - Elevated white blood cell count, unspecified (2) Pneumonia Laterality: unspecified laterality Lung location: unspecified part of lung Pneumonia type: due to unspecified organism Qualified Code(s): J18.9 - Pneumonia, unspecified organism
--- NOTE | 2019-08-13 15:43 | Pulmonology Progress Note ---
Date of Service August 13, 2019 Assessment & Plan (1) Empyema of lung: Patient looks exhausted. He is eating has no dysphasia symptoms . His cough is intractable as it has been for many months even prior to the presentation of the empyema. Patient may very well require bronchoscopy with BAL to assist with pulmonary toilet if all other measures of airway clearance are ineffective. (2) Status post lung surgery: (3) Allergic rhinitis: (4) CAD in [place] artery: (5) Chronic cough: (6) Laryngopharyngeal reflux disease: (7) Acute respiratory failure with hypoxia: (8) Pulmonary nodules: Subjective 74-year-old white male that is post VATS decortication for empyema currently feels poorly with persistent cough and difficulty expectorating. Patient gives history of a chronic cough for many months and have been evaluated by ENT in the past and felt to be secondary to reflux that was chronic. Patient's basically had a week of cough fever and worsening respiratory status. He underwent a VATS procedure with decortication with Dr. Huntley on 08/10/2019. Left upper lobe wedge biopsy in addition to drainage of the pleural fluid and decortication of both the visceral and parietal pleura were performed. No obvious history of a spiration per patient's coughing became so severe the day of admission that is led to an emesis. Inflammatory markers were elevated and the culture today grew out Citrobacter braakii sensitivities pending. Should be sensitive to IV Zosyn. Chest x-ray shows no significant change from yesterday with a pleural drain still present at the right lung base. A small residual right pleural effusion with bibasilar atelectasis is noted. Review of the CTA showed no evidence of pulmonary embolic disease there is pathologic right internal mammary and right cardiophrenic angle/pericardial lymph nodes that appeared to be concerning for possible underlying malignancy versus reactive lymphadenopathy. Loculated right pleural effusion is noted with extensive atelectasis right lung. Patient is extremely exhausted with this intractable cough and great difficulty expectorate. He has been using the vibration vest and the flutter valve along with receiving a fairly intensive pulmonary regimen for airway clearance. Review of Systems Constitutional: no problem reported Eyes: no problem reported Ear, Nose, Mouth, Throat: no problem reported Respiratory: no problem reported Cardiovascular: no problem reported Gastrointestinal: no problem reported Genitourinary: no problem reported Musculoskeletal: no problem reported Integumentary: no problem reported Neurologic: no problem reported Psychiatric: no problem reported Endocrine: no problem reported Hematologic / Lymphatic: no problem reported Allergy / Immunological: no problem reported Physical Exam Constitutional: well developed and well nourished; no acute distress Eyes: PERRL, conjunctivae normal, anicteric sclerae ENMT: external ear and nose normal, oropharynx normal Neck: trachea midline, no thyromegaly Respiratory: normal respiratory effort Auscultation: + diminished lung sounds (Right base with scattered rale) Cardiovascular: RRR, no murmur, no edema Palpation: normal PMI; no thrill Gastrointestinal (Abdomen): normal bowel sounds, soft, nontender, no hepatosplenomegaly Musculoskeletal: no cyanosis or clubbing, extremities motor strength 5/5 Gait: normal gait Skin: no rashes, warm and dry Neurologic: PERRL, EOMI, accommodation nl, no face palsy, no dysarthria Psychiatric: A+Ox3, euthymic affect Lymphatic: no cervical or axillary lymphadenopathy Results & Data Vital Signs (Past 12 Hours) Vital Signs Temp Pulse Pulse Resp BP Pulse Ox 08/13/19 15:22 36.6 C 93 H 16 131/78 91 08/13/19 13:19 82 22 91 08/13/19 07:48 78 92 08/13/19 07:17 36.8 C 75 18 93 PG Care Time/CCT Total # of Minutes Spent Total Time Spent with Patient: Total time spent is greater than 50% in coordination of care (as documented) at patient's floor/unit and/or counseling patient:
[2019-08-13] MEDS: ACETYLCYSTEINE 20% INHAL SOLN ***DISPENSED BY RESP. INH SCH (19:59)
[2019-08-14] MEDS: LEVALBUTEROL 1.25MG/0.5ML NEB NEB SCH ×4 (00:34→19:47)
[2019-08-14] MEDS: PIPERACILLIN/TAZOBACTAM 3.375 GM in DEXTROSE 5% 100 ML IV SCH ×3 (01:46→19:08)
[2019-08-14] MEDS: MoRPHine SULFATE 2 MG/ML CARP IV PRN (01:46)
[2019-08-14] MEDS: BENZONATATE 100 MG CAPSULE PO PRN ×2 (01:51→20:05)
[2019-08-14] MEDS: ACETAMINOPHEN 325 MG TAB PO SCH ×4 (04:06→22:26)
[2019-08-14 06:26] LABS: Hematocrit (blood only) 41.7 % (42-52); Hemoglobin 14.2 g/dL (14.0-18.0); Mean Corpuscular Hemoglobin 31.2 pg (25-34); Mean Corpuscular Hgb Conc 34.1 g/dL (32-36); Mean Corpuscular Volume 91.6 fL (80-100); Mean Platelet Volume 9.3 fL (7.4-10.4); Platelet Count 311 K/uL (130-400); RDW Coefficient of Variation 13.1 % (11.5-14.5); RDW Standard Deviation 44.1 fL (36.4-46.3); Red Blood Count 4.55 M/uL (4.7-6.1); White Blood Count 18.83 K/uL (4.8-10.8)
[2019-08-14] MEDS: ACETYLCYSTEINE 20% INHAL SOLN ***DISPENSED BY RESP. INH SCH ×2 (06:57→19:47)
[2019-08-14] MEDS: SODIUM CHLOR 7% 4 ML NEB NEB SCH ×2 (06:57→19:46)
[2019-08-14 07:05] LABS: BUN Creatinine Ratio 20.5 (10-20); Calcium 9.1 mg/dl (8.5-10.1); Creatinine Clr Calc Pharmacy 99.4 ml/min; Est GFR (African American) 108.3; Est GFR (Non-African American) 93.4; Potassium 3.4 mmol/L (3.5-5.1)
[2019-08-14] MEDS: DOCUSATE SODIUM 100 MG CAP PO SCH ×2 (07:34→20:04)
[2019-08-14] MEDS: FAMOTIDINE 20 MG TAB PO SCH (07:34)
[2019-08-14] MEDS: OXYCODONE HCL IR 5 MG TAB (IMMEDIATE RELEASE) PO PRN ×2 (07:37→15:39)
[2019-08-14] MEDS: EZETIMIBE 10 MG TABLET PO SCH (07:38)
[2019-08-14] MEDS: METOPROLOL SUCC 25MG EXT REL TAB PO SCH (07:38)
[2019-08-14] MEDS: ENOXAPARIN INJ 40 MG/0.4 ML SYR SQ SCH (07:38)
--- NOTE | 2019-08-14 07:58 | XRay Report ---
XR chest 1V portable CLINICAL HISTORY: 74 years-old Male presenting with empyema. TECHNIQUE: Portable upright AP view of the chest was obtained. COMPARISON: 08/13/2019. FINDINGS: Cardiomediastinal silhouette normal. Right pleural drain remains in place in the posterior right cost ophrenic sulcus. Persistent added density of the right lung diffusely with more focal opacity in the right midlung. A small to moderate right pleural effusion remains present. No pneumothorax. Left lung and pleural space clear. Degenerative changes of the thoracic spine. Soft tissue emphysema along the right lateral chest wall associated with the pleural drain. Upper abdomen normal. IMPRESSION: 1. Stable appearance of the diffuse though mid to basilar predominant right lung infiltrate associat ed with the parapneumonic effusion/empyema. 2. Right pleural drain unchanged. No pneumothorax. Electronically signed by: Malcom Jamil M.D. 08/14/2019 7:57 AM
--- NOTE | 2019-08-14 08:55 | Surgery Progress Note ---
Date of Service August 14, 2019 Assessment & Plan (1) Empyema of lung: Present on Admission?: Yes (2) Status post lung surgery: We put a small dose of TPA into the Pleurx and only drained 50 cc today. I believe most of this is consolidation and has very little fluid in his chest. The Pleurx is down the diaphragmatic sulci and up along posteriorly. At this point we will remove the Pleurx. Citrobacter baalki is an unusual organism. He will need prolonged antibiotics however I think these can be switched over to oral. I will speak to infectious disease. From my standpoint I think he is ready to be moved to a rehab facility or home. Present on Admission?: No Subjective Mr. Saunders is still having considerable amount of pain. He is off of oxygen today. His son was at the bedside. He is ambulating. He is eating regular breakfast this morning although he states he did not eat last night. We had a long talk about his empyema. Grew out an unusual organism. Physical Exam Physical Exam: He is complaining of pain. He is able to take good breaths. His dressings are dry. He has decreased breath sounds in the right base. His Pleurx drained very little today. Neurologically is completely intact. He has a regular rate and rhythm of his heart. He has no peripheral edema. Results & Data Vital Signs (Past 12 Hours) Vital Signs Temp Pulse Pulse Pulse Resp BP Pulse Ox 08/14/19 07:42 36.6 C 78 20 118/62 92 08/14/19 07:35 08/14/19 07:00 79 18 91 08/14/19 05:49 08/14/19 04:07 08/14/19 00:34 81 16 94 08/13/19 23:00 37.3 C 80 18 115/71 94 Pulse Ox 08/14/19 07:42 08/14/19 07:35 91 08/14/19 07:00 08/14/19 05:49 92 08/14/19 04:07 93 08/14/19 00:34 08/13/19 23:00 PG Care Time/CCT Total # of Minutes Spent Total Time Spent with Patient: Total time spent is greater than 50% in coordination of care (as documented) at patient's floor/unit and/or counseling patient:
--- NOTE | 2019-08-14 11:31 | Infectious Disease Consult ---
Date of Consultation August 14, 2019 Assessment & Plan (1) Empyema of lung: can continue zosyn for now, he does not wish to have additional quinolones due to gi upset with cipro in the past. would suggest transition to po omnicef 300mg po bid x 21 days post d/c from hospital. No contraindication to d/c from ID standpoint when otherwise stable. History of Present Illness Attending Physician: Que Yeung DO pt admitted on 08/07 with sob, cough, CTA in ER found right infiltrate, pleural fluid drained, 74 wbc, cultures negative, AFB negative, blood cultures negative. eval by pulm, started on zosyn, has been on this since admission, tolerating well. was seen by CT surgery as well, underwent VATS on 08/10 - OR cultures growing Citrobacter, sensitive to zosyn. ID asked to see in consult for transition to po abx. Chest tube removed just prior to my eval today, tolerated well. Pt is to go home with home health pending pulm decision regarding need for bronch. he is afebrile since admission, wbc initially 33, now 12. creat 0.6. no abd pain, no n/v/. eating well. denies f/c. no cp, sob, cough but some discomfort currently as he just had cath removed. Has allergy to cipro, took >10 years ago, significant "gi distress" that led to discontinuation. Flu swab negative in ER. Allergies Allergy/AdvReac Type Severity Reaction Status Date / Time NSAIDS (Non-Steroidal Allergy Mild ? Verified 07/26/19 14:52 Anti-Inflamma Wrohmpj-Arj-Ewp Reductase AdvReac Intermediate LEG Verified 07/26/19 14:52 Inhibitor CRAMPS, FLUSHED Cipro AdvReac Mild GI SYMPTOMS Verified 02/24/18 21:56 ciprofloxacin AdvReac Mild GI SYMPTOMS Verified 07/26/19 14:52 ranitidine AdvReac Mild TIRED Verified 07/26/19 14:52 aspirin AdvReac Unknown Verified 08/07/19 16:34 Home Medications Home Medications Medication Instructions Recorded Confirmed Type albuterol sulfate 90 mcg/actuation 2 puffs INHALATION Q4H PRN gm 06/12/19 08/07/19 History aerosol inhaler ezetimibe 10 mg tablet 10 mg PO DAILY #90 tab 06/12/19 08/07/19 History fexofenadine 180 mg tablet 180 mg PO DAILY PRN tab 06/12/19 08/07/19 History nitroglycerin 0.4 mg sublingual 0.4 mg SL Q5M PRN #1 tab 06/12/19 08/07/19 History tablet famotidine 20 mg tablet 20 mg PO DAILY 07/26/19 08/07/19 History ipratropium bromide 0.03 % nasal 2 sprays INTNAS BID 07/26/19 08/07/19 History spray irbesartan 150 mg tablet 150 mg PO DAILY 07/26/19 08/07/19 History rosuvastatin 5 mg tablet 5 mg PO WK 07/26/19 08/07/19 History fluticasone propionate [Flovent 1 - 2 puff INHALATION UD PRN 08/07/19 08/07/19 History HFA] ibuprofen [Advil] 200 mg PO Q6H PRN 08/07/19 08/07/19 History metoprolol succinate [Toprol XL] 12.5 mg PO DAILY 08/07/19 08/07/19 History Patient History Medical History Ascending cholangitis CAD (coronary artery disease) Dyslipidemia Elevated bilirubin Finger laceration (Resolved) HTN (hypertension) (Chronic) Pneumonia Surgical History H/O heart artery stent (Chronic) Family History Father , Alcohol abuse led to his at 69. No problems noted. Mother , at 96 and was functional up to her . No problems noted. Other No significant family history Social History Preferred Language: Sets[place] S[place] Rounder Required: No Beliefs That Will Affect Care: Pentecostalism Pentecostalism Beliefs: anabaptism Current Living Situation: Alone and Spouse Other Information That Helps Us Care for You: No Feels Safe at Home: Yes Safety Concerns: Feels Safe At This Time Smoking Status: Former smoker Do You Dip or Chew Tobacco: No ; Hx Alcohol Use: Yes Alcohol type: beer Hx Substance Use: No Review of Systems Review of Systems: All systems reviewed & are unremarkable except as noted in HPI & below Physical Exam Constitutional: WD/WN, vitals as above Eyes: PERRL, conjunctivae normal, anicteric sclerae ENMT: external ear and nose normal, oropharynx normal Neck: normal visual inspection Respiratory: normal respiratory effort, lungs clear to auscultation Cardiovascular: RRR, no murmur, no edema Gastrointestinal (Abdomen): normal bowel sounds, soft, nontender, no hepatosplenomegaly Musculoskeletal: no cyanosis or clubbing, extremities motor strength 5/5 Skin: no rashes, warm and dry Psychiatric: A+Ox3, euthymic affect Results & Data Vital Signs (Past 12 Hours) Vital Signs Temp Pulse Pulse Pulse Resp BP Pulse Ox 08/14/19 07:42 36.6 C 78 20 118/62 92 08/14/19 07:35 08/14/19 07:00 79 18 91 08/14/19 05:49 08/14/19 04:07 08/14/19 00:34 81 16 94 Pulse Ox 08/14/19 07:42 08/14/19 07:35 91 08/14/19 07:00 08/14/19 05:49 92 08/14/19 04:07 93 08/14/19 00:34 Laboratory Results Microbiology 08/07/19 21:42 Pleural Fluid Acid Fast Bacilli Smear - Final 08/07/19 21:42 Pleural Fluid Acid Fast Bacilli Culture - Preliminary No Acid-Fast Bacilli Isolated - Report 1, Additional Report to Follow. 08/07/19 16:16 Blood Aerobic Blood Culture - Final No growth in Aerobic bottle after 5 days. 08/07/19 16:16 Blood Anaerobic Blood Culture - Final No growth in Anaerobic bottle after 5 days. 08/07/19 16:16 Blood Aerobic Blood Culture - Final No growth in Aerobic bottle after 5 days. 08/07/19 16:16 Blood Anaerobic Blood Culture - Final No growth in Anaerobic bottle after 5 days. 08/07/19 21:42 Pleural Fluid Gram Stain - Final 08/07/19 21:42 Pleural Fluid Aerobic and Anaerobic Culture - Final No growth 08/10/19 Unknown Lung,Right Gram Stain - Final 08/10/19 Unknown Lung,Right Aerobic and Anaerobic Culture - Preliminary Citrobacter braakii 08/10/19 Unknown Lung,Right Gram Stain - Final 08/10/19 Unknown Lung,Right Aerobic and Anaerobic Culture - Preliminary Citrobacter braakii 08/10/19 Unknown Lung,Right Upper Lobe Gram Stain - Final 08/10/19 Unknown Lung,Right Upper Lobe Aerobic and Anaerobic Culture - Preliminary No growth to date. PG Care Time/CCT Total # of Minutes Spent Total Time Spent with Patient: Total time spent is greater than 50% in coordination of care (as documented) at patient's floor/unit and/or counseling patient:
--- NOTE | 2019-08-14 16:08 | Pulmonology Progress Note ---
Date of Service August 14, 2019 Assessment & Plan (1) Empyema of lung: Impression: 74-year-old male with empyema status post decortication. He continues to have issues with cough. Unclear if the Pleurx catheter may be causing some lung irritation but it is been now been removed. He is on antibiotics and was been seen by infectious disease. White blood cell count is decreasing. Recommendations: 1. Empyema: Tube management per thoracic surgery. Will require prolonged course of antibiotics under the direction of ID. 2. Cough: Unclear etiology. Continue Tessalon as needed. Will try some Robitussin with codeine cough syrup to see if we can give him some relief at night. Would avoid NORA inhibitor or ARB for blood pressure control. Continue pulmonary toilet. I do not see significant volume loss on his chest x-ray which would necessitate bronchoscopy and the patient is expectorating phlegm spontaneously so I doubt bronchoscopy would yield much at this point time. If continues to be problematic, repeating CT scan may be appropriate. Trial of Benadryl 3. Chest discomfort: Continue supportive care. (2) Status post lung surgery: (3) Allergic rhinitis: (4) CAD in [place] artery: (5) Chronic cough: (6) Laryngopharyngeal reflux disease: (7) Acute respiratory failure with hypoxia: (8) Pulmonary nodules: Subjective . Patient continues to have paroxysms of cough. He is expectorating some phlegm and feels that it is loosening up in his chest. He is having some right parasternal pain associated with the cough. No palpitations or lower extremity edema. Review of Systems Review of Systems: Unchanged from prior Physical Exam Constitutional: WD/WN, vitals as above Eyes: PERRL, conjunctivae normal, anicteric sclerae ENMT: external ear and nose normal, oropharynx normal Neck: normal visual inspection Respiratory: normal respiratory effort, lungs clear to auscultation Cardiovascular: RRR, no murmur, no edema Gastrointestinal (Abdomen): normal bowel sounds, soft, nontender, no hepatosplenomegaly Musculoskeletal: no cyanosis or clubbing, extremities motor strength 5/5 Skin: no rashes, warm and dry Psychiatric: A+Ox3, euthymic affect Results & Data Vital Signs (Past 12 Hours) Vital Signs Temp Pulse Pulse Resp BP Pulse Ox Pulse Ox 08/14/19 15:14 36.7 C 82 16 165/77 H 93 08/14/19 13:35 78 18 94 08/14/19 07:42 36.6 C 78 20 118/62 92 08/14/19 07:35 91 08/14/19 07:00 79 18 91 08/14/19 05:49 92 08/14/19 04:07 93 Laboratory Results 08/14/19 05:51 08/14/19 05:51 Diagnostic Findings Chest x-ray from today demonstrates blunting of the right costophrenic angle. PG Care Time/CCT Total # of Minutes Spent Total Time Spent with Patient: Total time spent is greater than 50% in coordination of care (as documented) at patient's floor/unit and/or counseling patient:
[2019-08-14] MEDS: GUAIFENESIN/CODEINE 100MG/10MG 5ML UDC PO PRN (16:35)
--- NOTE | 2019-08-14 17:06 | Hospitalist Progress Note ---
Date of Service August 14, 2019 Assessment & Plan (1) Pneumonia: - Chest CT with loculated R pleural effusion and extensive atelectasis of R lung; Empyema - Elevated procalcitonin and leukocytosis on admission - since trended down with Abx; influenza neg - Continue Zosyn with plans for conversion to Omnicef 300 mg BID for prolonged coverage - 21 days; Completed Azithromycin course - Continue Xopenex; sodium chloride nebs BID - Pulmonary, ID, and Thoracic Surgery following - S/P RVATS with decortication on 08/10 -- Discussed with Hudson Waddell and Dr. Pelaez at bedside (2) Pleural effusion: - This is likely empyema - given minimal output from Pleur-X it is suggested this is more consolidative - Pleur-X was removed - S/P thoracentesis on 08/07 - path showed foamy histiocytes indicating a xanthomatous type process - S/P RVATS with decortication on 08/10 - growing Citrobacter braakii - Rheumatoid factor slightly elevated at 15; YANNICK and anti-CCP negative - Treatment as above (3) Acute respiratory failure with hypoxia: - Intermittent needs for supplemental O2 - was on RA during my visit - will perform 2 step prior to D/C (4) Pulmonary nodules: - CT showed right internal mammary and right cardiophrenic angle/pericardial lymph nodes -- concern for underlying malignancy in setting of weight loss; pathology of pleural fluid negative for malignancy - Will need F/U imaging for monitoring - Pulm/CT Surg following, appreciate input. (5) CAD (coronary artery disease): - S/P stenting of mid left circumflex and overall left circumflex marginal in 2016. - Continue Metoprolol Succ 12.5 mg daily, Rosuvastatin 5 mg Wednesday, and Ezetimibe 10 mg daily (6) Dyslipidemia: - Continue statin and zetia (7) HTN (hypertension): - Continue Metoprolol; Home Irbesartan was on hold given lower BP earlier - recommendations from Pulm to consider hold given chronic cough (8) DVT prophylaxis: - Lovenox daily. Dispo: Pleur-X removed with plans for oral Abx; PT/OT evaluations; Will need 2 step prior to D/C - possible D/C next 1-2 days Subjective Reports he feels better today compared to yesterday. Pain is better since removal of Pleur-X. Continues with a productive cough but states he feels like he can take deeper breaths without getting into a coughing spell. Complaints of generalized fatigue/malaise. WBC is reducing. Planning on oral conversion on D/C and will require prolonged Abx. Discussed with CT Surg and ID at bedside. Verbalizes no new complaints Review of Systems Constitutional: + fatigue and + malaise; no fever and no chills Respiratory: + cough, + dyspnea (with coughing), + pain on inspiration (improving since Pleur-X removed) and + sputum production Cardiovascular: + chest pain (improving with Pleur-X removal but painful with coughing); no palpitations, no lightheadedness and no edema Gastrointestinal: no abdominal pain, no nausea, no vomiting, no constipation and no diarrhea/loose stools Genitourinary: no dysuria Integumentary: no rash Physical Exam Constitutional: WD/WN, vitals as above + ill appearing (but non-toxic; fatigued-appearing) Eyes: + anicteric sclerae ENMT: Ears: no hearing impairment Neck: trachea midline Respiratory: normal respiratory effort Auscultation: + diminished lung sounds; no crackles and no wheezes Cardiovascular: RRR, no murmur, no edema Gastrointestinal (Abdomen): Inspection/Auscultation: normal bowel sounds Percussion/Palpation: abdomen soft; abdomen nontender Musculoskeletal: no cyanosis or clubbing, extremities motor strength 5/5 Head/Neck/Chest: normocephalic and head atraumatic Skin: no rashes, warm and dry Neurologic: moves all extremities Psychiatric: A+Ox3, euthymic affect Results & Data Vital Signs (Past 12 Hours) Vital Signs Temp Pulse Pulse Resp BP Pulse Ox Pulse Ox 08/14/19 15:14 36.7 C 82 16 165/77 H 93 08/14/19 13:35 78 18 94 08/14/19 07:42 36.6 C 78 20 118/62 92 08/14/19 07:35 91 08/14/19 07:00 79 18 91 08/14/19 05:49 92 PG Care Time/CCT Total # of Minutes Spent Total Time Spent with Patient: Total time spent is greater than 50% in coordination of care (as documented) at patient's floor/unit and/or counseling patient: (1) Pneumonia Laterality: unspecified laterality Lung location: unspecified part of lung Pneumonia type: due to unspecified organism Qualified Code(s): J18.9 - Pneumonia, unspecified organism
[2019-08-15] MEDS: LEVALBUTEROL 1.25MG/0.5ML NEB NEB SCH ×4 (01:01→19:49)
[2019-08-15] MEDS: PIPERACILLIN/TAZOBACTAM 3.375 GM in DEXTROSE 5% 100 ML IV SCH ×3 (03:03→19:24)
[2019-08-15] MEDS: ACETAMINOPHEN 325 MG TAB PO SCH ×4 (03:08→21:51)
[2019-08-15] MEDS: ACETYLCYSTEINE 20% INHAL SOLN ***DISPENSED BY RESP. INH SCH ×2 (07:53→19:49)
[2019-08-15] MEDS: SODIUM CHLOR 7% 4 ML NEB NEB SCH (07:53)
--- NOTE | 2019-08-15 08:34 | XRay Report ---
XR chest 1V portable CLINICAL HISTORY: empyema empyema COMPARISON STUDY: 08/14/2019 FINDINGS: Continued improvement in aeration right lung base. Interval removal of the right basilar drainage catheter. No significant pneumothorax. Left lung remai ns generally clear. Parenchymal density in the right midlung region is significantly diminished in prominence. IMPRESSION: Improved exam post right basilar drainage tube removal. Improved aeration of the right h emithorax. No significant pneumothorax. The above report was generated using voice recognition software. It may contain grammatical, syntax or spelling errors. Electronically signed by: Yusuf Moreland M.D. 08/15/2019 8:32 AM
[2019-08-15] MEDS: FAMOTIDINE 20 MG TAB PO SCH (09:03)
[2019-08-15] MEDS: DOCUSATE SODIUM 100 MG CAP PO SCH ×2 (09:04→20:16)
[2019-08-15] MEDS: ENOXAPARIN INJ 40 MG/0.4 ML SYR SQ SCH (09:04)
[2019-08-15] MEDS: ROSUVASTATIN CALCIUM 5 MG TAB PO SCH (09:04)
[2019-08-15] MEDS: METOPROLOL SUCC 25MG EXT REL TAB PO SCH (09:04)
[2019-08-15] MEDS: EZETIMIBE 10 MG TABLET PO SCH (09:04)
--- NOTE | 2019-08-15 11:11 | Pulmonology Progress Note ---
Date of Service August 15, 2019 Assessment & Plan (1) Empyema of lung: Impression: 74-year-old male with empyema status post decortication. His cough is better this morning Recommendations: 1. Empyema: Tube management per thoracic surgery. Will require prolonged course of antibiotics under the direction of ID. Will check CBC in the morning. 2. Cough: Multifactorial etiology. Continue Tessalon as needed. Continue as needed Robitussin with codeine. Would avoid NORA inhibitor or ARB for blood pressure control. Continue pulmonary toilet. As well as nightly Benadryl 3. Chest discomfort: Continue supportive care. May be approaching discharge. I would be happy to see him back in pulmonary clinic in a few weeks with a follow-up chest x-ray if needed. (2) Status post lung surgery: (3) Allergic rhinitis: (4) CAD in [place] artery: (5) Chronic cough: (6) Laryngopharyngeal reflux disease: (7) Acute respiratory failure with hypoxia: (8) Pulmonary nodules: Subjective Patient feels better this morning. His cough is decreased. He is having less chest pain. His sputum production has essentially resolved. He slept better last night that he has in several nights. He feels his energy level is improving as well Review of Systems Review of Systems: Unchanged from prior Physical Exam Constitutional: WD/WN, vitals as above Eyes: PERRL, conjunctivae normal, anicteric sclerae ENMT: external ear and nose normal, oropharynx normal Neck: trachea midline, no thyromegaly normal visual inspection Respiratory: normal respiratory effort, lungs clear to auscultation Cardiovascular: RRR, no murmur, no edema Gastrointestinal (Abdomen): normal bowel sounds, soft, nontender, no hepatosplenomegaly Musculoskeletal: no cyanosis or clubbing, extremities motor strength 5/5 Extremities: extremities normal to inspection Skin: no rashes, warm and dry Psychiatric: A+Ox3, euthymic affect Lymphatic: no cervical lymphadenopathy Results & Data Vital Signs (Past 12 Hours) Vital Signs Temp Pulse Pulse Resp BP Pulse Ox Pulse Ox 08/15/19 08:15 95 08/15/19 07:53 77 20 95 08/15/19 06:48 15 127/79 96 08/15/19 06:21 91 08/15/19 03:04 37.0 C 76 18 145/85 H 92 Laboratory Results 08/14/19 05:51 08/14/19 05:51 Diagnostic Findings No new films PG Care Time/CCT Total # of Minutes Spent Total Time Spent with Patient: Total time spent is greater than 50% in coordination of care (as documented) at patient's floor/unit and/or counseling patient:
--- NOTE | 2019-08-15 15:07 | Surgery Progress Note ---
Date of Service August 15, 2019 Assessment & Plan (1) Status post lung surgery: Present on Admission?: No (2) Empyema of lung: I have explained to Mr. Saunders that he had a pneumonia with an empyema and he is going to get over it but is going to take him time. Unclear to me whether he can go home or not. He may need a short rehabilitation stay. Present on Admission?: Yes Subjective Patient still having some issues with a cough and with breathing although he is better. He has been weaned down to room air. He still "feels bad". Physical Exam Physical Exam: His incisions are clean. He has less pain in his chest. He still has a cough productive of whitish thick sputum. He is not eating as well as I would like. Abdomen soft nontender. His regular treatment of his heart. He has trace edema of his lower extremities. Neurologically is intact. Results & Data Vital Signs (Past 12 Hours) Vital Signs Pulse Pulse Resp BP Pulse Ox Pulse Ox 08/15/19 13:51 83 18 95 08/15/19 08:15 95 08/15/19 07:53 77 20 95 08/15/19 06:48 15 127/79 96 08/15/19 06:21 91 PG Care Time/CCT Total # of Minutes Spent Total Time Spent with Patient: Total time spent is greater than 50% in coordination of care (as documented) at patient's floor/unit and/or counseling patient:
[2019-08-15] MEDS: BENZONATATE 100 MG CAPSULE PO PRN (20:17)
--- NOTE | 2019-08-15 20:25 | Hospitalist Progress Note ---
Date of Service August 15, 2019 Assessment & Plan (1) Pneumonia: - Chest CT with loculated R pleural effusion and extensive atelectasis of R lung; Empyema - Elevated procalcitonin and leukocytosis on admission - since trended down with Abx; influenza neg - Continue Zosyn with plans for conversion to Omnicef 300 mg BID for prolonged coverage - 21 days; Completed Azithromycin course - Continue Xopenex; sodium chloride nebs BID - Pulmonary, ID, and Thoracic Surgery following - S/P RVATS with decortication on 08/10 (2) Pleural effusion: - This is likely empyema - given minimal output from Pleur-X it is suggested this is more consolidative - Pleur-X was removed on 08/14 - S/P thoracentesis on 08/07 - path showed foamy histiocytes indicating a xanthomatous type process - S/P RVATS with decortication on 08/10 - growing Citrobacter braakii - Rheumatoid factor slightly elevated at 15; YANNICK and anti-CCP negative - Treatment as above (3) Acute respiratory failure with hypoxia: - Has remained on RA through the day and ambulating halls without O2 - likely will still perform 2 step prior to D/C (4) Pulmonary nodules: - CT showed right internal mammary and right cardiophrenic angle/pericardial lymph nodes -- concern for underlying malignancy in setting of weight loss; pathology of pleural fluid negative for malignancy - Will need F/U imaging for monitoring - Pulm/CT Surg following, appreciate input. (5) CAD (coronary artery disease): - S/P stenting of mid left circumflex and overall left circumflex marginal in 2016. - Continue Metoprolol Succ 12.5 mg daily, Rosuvastatin 5 mg Wednesday, and Ezetimibe 10 mg daily (6) Dyslipidemia: - Continue statin and zetia (7) HTN (hypertension): - Continue Metoprolol; Home Irbesartan was on hold given lower BP earlier - recommendations from Pulm to consider hold given chronic cough (8) DVT prophylaxis: - Lovenox daily. Dispo: Pleur-X removed with plans for oral Abx; PT/OT evaluations; Will need 2 step prior to D/C - possible D/C tomorrow Subjective Reports having a better day today. Slept better through the night and feels his weakness is lessening. Tessalon perles seems to be helping with his cough. Having more rhinorrhea today. Tolerating diet without issue. Feels that he is strong enough to go home at discharge. Has multiple sons who will be staying with him until he is further recovered Review of Systems Constitutional: + weakness (improving); no fever and no chills Ear, Nose, Mouth, Throat: + nasal discharge (clear); no sore throat and no hoarseness Respiratory: + cough, + dyspnea (with coughing), + pain on inspiration ( improving since Pleur-X removed; occ. with coughing) and + sputum production Cardiovascular: + chest pain (improving with Pleur-X removal but painful with coughing); no palpitations, no lightheadedness and no edema Gastrointestinal: no abdominal pain, no nausea, no vomiting, no constipation and no diarrhea/loose stools Genitourinary: no dysuria Integumentary: no rash Physical Exam Constitutional: WD/WN, vitals as above looks more rested today compared to 08/14 Eyes: + anicteric sclerae ENMT: Ears: no hearing impairment Neck: trachea midline Respiratory: normal respiratory effort Auscultation: + diminished lung sounds and + crackles (minimal at bases); no wheezes Cardiovascular: RRR, no murmur, no edema Gastrointestinal (Abdomen): Inspection/Auscultation: normal bowel sounds Percussion/Palpation: abdomen soft; abdomen nontender Musculoskeletal: no cyanosis or clubbing, extremities motor strength 5/5 Head/Neck/Chest: normocephalic and head atraumatic Skin: no rashes, warm and dry Neurologic: moves all extremities Psychiatric: A+Ox3, euthymic affect Results & Data Vital Signs (Past 12 Hours) Vital Signs Temp Pulse Pulse Resp BP Pulse Ox 08/15/19 19:53 73 18 93 08/15/19 15:21 37.2 C 78 18 135/82 93 08/15/19 13:51 83 18 95 PG Care Time/CCT Total # of Minutes Spent Total Time Spent with Patient: Total time spent is greater than 50% in coordination of care (as documented) at patient's floor/unit and/or counseling patient: (1) Pneumonia Laterality: unspecified laterality Lung location: unspecified part of lung Pneumonia type: due to unspecified organism Qualified Code(s): J18.9 - Pn eumonia, unspecified organism
[2019-08-16] MEDS: GUAIFENESIN/CODEINE 100MG/10MG 5ML UDC PO PRN (00:59)
[2019-08-16] MEDS: LEVALBUTEROL 1.25MG/0.5ML NEB NEB SCH ×2 (00:59→07:41)
[2019-08-16] MEDS: PIPERACILLIN/TAZOBACTAM 3.375 GM in DEXTROSE 5% 100 ML IV SCH ×2 (01:51→08:52)
[2019-08-16] MEDS: BENZONATATE 100 MG CAPSULE PO PRN (04:39)
[2019-08-16] MEDS: ACETAMINOPHEN 325 MG TAB PO SCH ×2 (04:42→08:51)
[2019-08-16] MEDS: MoRPHine SULFATE 2 MG/ML CARP IV PRN (04:42)
[2019-08-16 05:18] LABS: Basophils # (auto) 0.03 K/uL (0-0.2); Basophils % (auto) 0.2 %; Eosinophils # (auto) 0.03 K/uL (0-0.5); Eosinophils % (auto) 0.2 %; Hemoglobin 12.9 g/dL (14.0-18.0); Immature Granulocytes # (auto) 0.19 K/uL (0.00-0.02); Immature Granulocytes % (auto) 1.1 %; Lymphocytes # (auto) 1.93 K/uL (1.2-3.4); Lymphocytes % (auto) 11.1 %; Mean Corpuscular Hemoglobin 31.4 pg (25-34); Mean Corpuscular Hgb Conc 33.9 g/dL (32-36); Mean Corpuscular Volume 92.5 fL (80-100); Mean Platelet Volume 8.6 fL (7.4-10.4); Monocytes # (auto) 1.86 K/uL (0.11-0.59); Monocytes % (auto) 10.7 %; Neutrophils # (auto) 13.41 K/uL (1.4-6.5); Neutrophils % (auto) 76.7 %; Platelet Count 314 K/uL (130-400); RDW Coefficient of Variation 13.1 % (11.5-14.5); RDW Standard Deviation 44.4 fL (36.4-46.3); Red Blood Count 4.11 M/uL (4.7-6.1); White Blood Count 17.45 K/uL (4.8-10.8)
[2019-08-16 05:48] LABS: Creatinine Clr Calc Pharmacy 97.9 ml/min; Est GFR (African American) 107.6; Est GFR (Non-African American) 92.9
[2019-08-16 07:07] VITALS: TEMP 98.1; O2SAT 94
[2019-08-16] MEDS: ACETYLCYSTEINE 20% INHAL SOLN ***DISPENSED BY RESP. INH SCH (07:41)
--- NOTE | 2019-08-16 07:56 | XRay Report ---
SINGLE VIEW CHEST CLINICAL HISTORY: Empyema. FINDINGS: An AP, portable, upright chest radiograph is compared to study dated 08/15/2019. Correlatio n is made with chest CT dated 08/07/2019. The examination is degraded by portable technique and patie nt rotation. The cardiomediastinal silhouette is unremarkable noting atherosclerotic calcification of the thoracic aorta. Emphysema and chronic interstitial thickening is similar to previous. There is a small and at least partially loculated right pleural effusion/collection with associated right basil ar consolidation. Atelectasis is noted at the left lung base. No pneumothorax is seen. The skeletal s tructures are osteopenic. The bony thorax is grossly intact. IMPRESSION: 1. A small and at least partially loculated pleural effusion/collection is again seen at the right skip ng base with associated right basilar consolidation. This is similar in appearance to yesterday. 2. The left lung appears clear. 3. Emphysema. Electronically signed by: Harrison Allen M.D. 08/16/2019 7:53 AM
[2019-08-16 08:05] VITALS: PULSE 76
[2019-08-16] MEDS: DOCUSATE SODIUM 100 MG CAP PO SCH (08:47)
[2019-08-16] MEDS: METOPROLOL SUCC 25MG EXT REL TAB PO SCH (08:47)
[2019-08-16] MEDS: ENOXAPARIN INJ 40 MG/0.4 ML SYR SQ SCH (08:47)
[2019-08-16] MEDS: EZETIMIBE 10 MG TABLET PO SCH (08:48)
[2019-08-16] MEDS: FAMOTIDINE 20 MG TAB PO SCH (08:51)
--- NOTE | 2019-08-16 12:21 | Pulmonology Progress Note ---
Date of Service August 16, 2019 Assessment & Plan (1) Empyema of lung: Impression: 74-year-old male with empyema status post decortication. His cough is better this morning Recommendations: 1. Empyema: Tube management per thoracic surgery. Will require prolonged course of antibiotics under the direction of ID. Will check CBC in the morning. 2. Cough: Multifactorial etiology. Continue Tessalon as needed. Continue as needed Robitussin with codeine. The cough is predating his current infectious issues and likely is secondary to upper airway cough syndrome. Outpatient treatment with a first generation antihistamine, decongestant, topical nasal steroid as well as saline sinus irrigation was recommended. 3. Chest discomfort: Continue supportive care. Okay to discharge from pulmonary perspective. I would be happy to see him back in the pulmonary clinic if his cough should persist or if follow-up imaging is needed. (2) Status post lung surgery: (3) Allergic rhinitis: (4) CAD in [place] artery: (5) Chronic cough: (6) Laryngopharyngeal reflux disease: (7) Acute respiratory failure with hypoxia: (8) Pulmonary nodules: Subjective Patient seen and examined. EMR reviewed is better today. His cough is better. He feels this may be related to upper airway cough syndrome as he had a favorable response to decongestants previously but had to discontinue them due to blood pressure issues. His pain is adequately controlled. Review of Systems Review of Systems: Unchanged from prior Physical Exam Constitutional: WD/WN, vitals as above Eyes: PERRL, conjunctivae normal, anicteric sclerae ENMT: external ear and nose normal, oropharynx normal Neck: trachea midline, no thyromegaly normal visual inspection Respiratory: normal respiratory effort, lungs clear to auscultation Cardiovascular: RRR, no murmur, no edema Gastrointestinal (Abdomen): normal bowel sounds, soft, nontender, no hepatosplenomegaly Musculoskeletal: no cyanosis or clubbing, extremities motor strength 5/5 Extremities: extremities normal to inspection Skin: no rashes, warm and dry Psychiatric: A+Ox3, euthymic affect Lymphatic: no cervical lymphadenopathy Results & Data Vital Signs (Past 12 Hours) Vital Signs Temp Pulse Resp BP Pulse Ox Pulse Ox 08/16/19 09:55 94 08/16/19 08:04 76 16 94 08/16/19 07:05 36.7 C 73 18 143/80 H 94 Laboratory Results 08/16/19 04:57 08/16/19 04:57 Diagnostic Findings No new films PG Care Time/CCT Total # of Minutes Spent Total Time Spent with Patient: Total time spent is greater than 50% in coordination of care (as documented) at patient's floor/unit and/or counseling patient:
--- NOTE | 2019-08-16 13:37 | Surgery Progress Note ---
Date of Service August 16, 2019 Assessment & Plan (1) Empyema of lung: I am quite pleased with Mr. Saunders. I have explained that is going to take him a while to get over this. He had a severe pneumonia and empyema. Overall however I am quite pleased with him. He can be discharged at the primary care service's discretion. I will see him back in a week with an x-ray. Present on Admission?: Yes (2) Status post lung surgery: Present on Admission?: No Subjective Mr. Saunders is "finally better" today. His cough is much improved. He still produces some thin white sputum but states that overall he is "100% better". His lungs sound better. His incisions are clean. His x-ray shows good expansion of the right lung. Results & Data Vital Signs (Past 12 Hours) Vital Signs Temp Pulse Resp BP Pulse Ox Pulse Ox 08/16/19 09:55 94 08/16/19 08:04 76 16 94 08/16/19 07:05 36.7 C 73 18 143/80 H 94 PG Care Time/CCT Total # of Minutes Spent Total Time Spent with Patient: Total time spent is greater than 50% in coordination of care (as documented) at patient's floor/unit and/or counseling patient:
[2019-08-16 13:39] VITALS: BP 103/64
--- NOTE | 2019-08-16 20:41 | Discharge Summary ---
Date of Service August 16, 2019 Admission HPI Per Admitting Provider Rya Saunders is a 74-year-old male who presents with 2 days of worsening shortness of breath, chills, sweats, and fever. His symptoms first began 2 days ago at around 9 PM where he developed a persistent cough different from his normal chronic cough. 1 day ago, yesterday morning he woke up felt worse with an extreme amount of fatigue and decreased energy. He had some sweats. He reports he had persistent chills, and was "freezing "even with sweaters and a hot shower. He endorses pain in his ribs when coughing. Otherwise denies chest pain. Denies shortness of breath with exertion, but notes that he is so f atigued he cannot exert himself very much. Reports his symptoms feel similar to pneumonia he had 25 years ago. He does not have a home oxygen requirement. His primary care physician is Dr. Carrasco at [facility]. He is up-to-date on health maintenance, and has a colonoscopy within 10 years which did not show any concerns other than some diverticulosis. Denies nausea, diarrhea, constipation, melena, bright red blood per rectum. He endorses 10 pounds weight loss over the previous 10 years, notes that he has been eating metal cleaner but otherwise does not have a reason for the weight loss. Social: Tobacco use from age [age], 1/2 pack/day. Alcohol: Drinks light beer daily, 2-3 drinks per sitting Recreational: None Lives with his in a home in [place]. 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 His daughter has driven up from [place] taking care of his while he is in the hospital. Principal Diagnosis Empyema Discharge Exam Constitutional WD/WN, vitals as above Eyes + anicteric sclerae ENMT Ears: no hearing impairment Neck trachea midline Respiratory normal respiratory effort Auscultation: + diminished lung sounds and + crackles (minimal at bases); no wheezes Cardiovascular RRR, no murmur, no edema Gastrointestinal (Abdomen) Inspection/Auscultation: normal bowel sounds Percussion/Palpation: abdomen soft; abdomen nontender Musculoskeletal no cyanosis or clubbing, extremities motor strength 5/5 Head/Neck/Chest: normocephalic and head atraumatic Skin no rashes, warm and dry Neurologic moves all extremities Psychiatric A+Ox3, euthymic affect Discharge Data Allergies Allergy/AdvReac Type Severity Reaction Status Date / Time NSAIDS (Non-Steroidal Allergy Mild ? Verified 07/26/19 14:52 Anti-Inflamma Tdhfkes-Qhd-Sav Reductase AdvReac Intermediate LEG Verified 07/26/19 14:52 Inhibitor CRAMPS, FLUSHED Cipro AdvReac Mild GI SYMPTOMS Verified 02/24/18 21:56 ciprofloxacin AdvReac Mild GI SYMPTOMS Verified 07/26/19 14:52 ranitidine AdvReac Mild TIRED Verified 07/26/19 14:52 aspirin AdvReac Unknown Verified 08/07/19 16:34 Consultations 08/07/19 17:14 ED Decision to Admit Stat 08/07/19 19:21 Consult Thoracic Surgery Routine 08/08/19 08:58 Consult Pulmonology Routine 08/14/19 10:51 Consult Infectious Diseases Routine Procedures Performed Operation Date: 08/09/19 14:40 <No data on this case meets the specified criteria> Operation Date: 08/10/19 12:00 Actual Procedures p Right Video Assisted Thoracoscopy with Decortication(Right) - Cleveland Huntley MD, FACS Ordered Studies 08/07/19 15:28 CT angio chest PE protocol Stat Hospital Course (1) Pneumonia: - Chest CT with loculated R pleural effusion and extensive atelectasis of R lung; Empyema - Elevated procalcitonin and leukocytosis on admission - since trended down with Abx; influenza neg - Utilized Zosyn and converted to Omnicef 300 mg BID for prolonged coverage - 21 days; Completed Azithromycin course - Continue home inhalers/pulmonary regimen - Pulmonary, ID, and Thoracic Surgery following - S/P RVATS with decortication on 08/10 (2) Pleural effusion: - This is likely empyema - given minimal output from Pleur-X it is suggested this is more consolidative - Pleur-X was removed on 08/14 - S/P thoracentesis on 08/07 - path showed foamy histiocytes indicating a xanthomatous type process - S/P RVATS with decortication on 08/10 - growing Citrobacter braakii - Rheumatoid factor slightly elevated at 15; YANNICK and anti-CCP negative - Treatment as above (3) Acute respiratory failure with hypoxia: - Has remained on RA and ambulating halls without O2 (4) Pulmonary nodules: - CT showed right internal mammary and right cardiophrenic angle/pericardial lymph nodes -- concern for underlying malignancy in setting of weight loss; pathology of pleural fluid negative for malignancy - Will need F/U imaging for monitoring after infection improves - Pulm/CT Surg followed (5) CAD (coronary artery disease): - S/P stenting of mid left circumflex and overall left circumflex marginal in 2016. - Continue Metoprolol Succ 12.5 mg daily, Rosuvastatin 5 mg Wednesday, and Ezetimibe 10 mg daily (6) Dyslipidemia: - Continue statin and zetia (7) HTN (hypertension): - Continue Metoprolol and Irbesartan Total Time Total Time Spent Total Time Spent (In Minutes): Greater than 30 minutes Discharge Plan Discharge Items Patient Disposition: Home - Home Health Services Reason For Visit: SHORTNESS OF BREATH, PNEUMONIA Discharge Diagnosis: Empyema Activity: Resume your previous activity Non-emergency contact: Primary Care Provider Call non-emergency contact if: you have any medication questions, your symptoms worsen and you have a fever Follow-up/Referrals: Scarlett Pelaez DO [Physician] - 08/30/19 3:15 pm (Please, follow up at the [facility] Infectious Disease Office with Dr. Scarlett Pelaez on WednesdayAugust 30 at 3:15 pm. *The office is located in [address] of [facility], next to this hospital. If you need to change this appointment, call the office at [phone].) Cleveland Huntley MD, FACS [Surgeon] - (Please, follow up with Dr. Huntley. *A nurse from his office will call you with the appointment details. The office is located at [address] in [place]. If you have any questions, call the office at [phone].) Kurtis Carrasco MD [Primary Care Provider] - 08/21/19 1:50 pm (Please, follow up at Dr. Carrasco' office with his associate, Dr. Del Rosario, on WednesdayAugust 21 at 1:50 pm. *If you need to change this appointment, call their office at [phone].) Diet: Heart Healthy Addtl Attending Provider Instructions: Empyema: - You were admitted for an empyema. This is a collection of pus that sits between the lung and the chest wall. A lot of times this comes from having an pneumonia. - You will need to be on 21 more days of antibiotics. This antibiotic is called Omnicef. You will take 300 mg twice a day until complete. - Dr. Huntley and Dr. Hawk would like to follow up with you in their office to keep an eye on this infection and help to figure out the cause of your cough - In regards to your cough, you will be given a prescription for Tessalon perles to use to help prevent your cough. It sounds like you may have some post-nasal drip contributing to your long-standing cough as well (this is when your nose drains down the back of your throat causing coughing). It is also possible your Irbesartan which is one of your blood pressure medications could be contributing to the cough. Could consider holding this medication and see if this helps stop your cough. Should discuss with your heart doctor about this. - You will want to take it easy over the next couple weeks as your recovery. Hopefully each day you feel a little stronger and less weak but it can take some time. Pending Studies at Discharge: No Stand-Alone Forms: My [facility], Smoking Cessation Medications and DC Order Prescriptions: New benzonatate [Tessalon Perles] 100 mg Capsule 100 mg PO TID PRN (Reason: cough) 30 Days Qty: 90 RF: 0 cefdinir 300 mg capsule 300 mg PO BID 21 Days Qty: 42 RF: 0 Continued ezetimibe 10 mg tablet 10 mg PO DAILY Qty: 90 RF: 0 nitroglycerin 0.4 mg tablet, sublingual 0.4 mg SL Q5M PRN (Reason: chest pain) Qty: 1 RF: 0 fexofenadine 180 mg tablet 180 mg PO DAILY PRN (Reason: allergies) RF: 0 albuterol sulfate 90 mcg/actuation HFA aerosol inhaler 2 puffs inhalation Q4H PRN (Reason: shortness of breath or wheezing) RF: 0 famotidine 20 mg tablet 20 mg PO DAILY RF: 0 rosuvastatin 5 mg tablet 5 mg PO WK RF: 0 irbesartan 150 mg tablet 150 mg PO DAILY RF: 0 ipratropium bromide 0.03 % spray,non-aerosol 2 sprays INTNAS BID RF: 0 ibuprofen [Advil] 200 mg Tablet 200 mg PO Q6H PRN (Reason: Pain) RF: 0 Flovent HFA 110 mcg/actuation HFA aerosol inhaler 1 - 2 puff INHALATION UD PRN (Reason: alleries/coughing) RF: 0 metoprolol succinate [Toprol XL] 25 mg tablet extended release 24 hr 12.5 mg PO DAILY RF: 0 Discharge Orders: Discharge Order (Routine); Ordered 08/16/19 Ordered By: Eliana Barahona Admission Data Admit Date/Time: 08/07/19 18:39 Attending Provider: Que Yeung Admit Provider: Malcom Donato Primary Care Provider: Kurtis Carrasco Other Providers: Es Alaniz ; Cleveland Huntley ; Joss Hawk ; [facility] ; Scarlett Pelaez Other Interventions: Discharge Summary Assessment (RN) Last Done: 08/16/19 13:36 DC Date/Time DO NOT enter until pt leaves facility: 08/16/19 14:14 Supervising Physician Co-Signing Physician Notes Attending note: patient seen and examined with Eliana Barahona PA-C. I agree with her discharge summary. I personally reviewed the labs and imaging findings. patient breathing well, no fever or chills, appetite is intact, minimal cough oxygen arranged for home discussed with anselmo Ayala for discharge, will follow up in office next week with CXR - Pneumonia: much improved, continue Omnicef for several weeks, completed course of Zithromax - Pleural effusion, empyema: s/p thoracentesis, VATS with decortication, PleurX removed prior to d/c continue several weeks of Omnicef follow up with Dr. Huntley next week
== END 2019-08-16 14:14 | disposition home health service (06) | DRG 163 ==
LOC: ED 14:16 → 4W 18:39 → SUATTDRO 18:39 → 4W 19:12 → 3W 08-10 16:41

== ENCOUNTER 2023-04-11 06:58 | Inpatient (IN) ==
--- NOTE | 2023-04-11 07:23 | Emergency Department Note ---
History of Present Illness General Chief complaint: Fever Stated complaint: CHILLS,FEVER,SWEATING Time Seen by Provider: 04/11/23 07:16 History of Present Illness Maximum Pain Intensity: 3 78-year-old male presents emergency department with a 1 day history of shaking chills rigors temp to 102. Patient states a few days ago he felt like he had food poisoning he had slimy stools. Patient denies any vomiting denies cough cold congestion symptoms. Patient denies urinary symptoms. Last night he states that he had continued shaking chills rigors and sweating. Patient denies any specific abdominal pain denies any chest pain sore throat headache. No recent infections no recent antibiotic use. There are no other mitigating or alleviating factors. Patient states that he became very thirsty started to drink a lot of fluid yesterday. Home Medications Medication Instructions Recorded Confirmed Type famotidine 20 mg tablet (Pepcid) 20 mg PO QAM 07/26/19 03/16/23 History metoprolol succinate 25 mg 25 mg PO QAM 08/07/19 03/16/23 History tablet,extended release 24 hr (Toprol XL) aspirin 81 mg tablet,delayed 81 mg PO Q OTHER DAY 02/20/20 03/16/23 History release (Adult Low Dose Aspirin) chlorthalidone 25 mg tablet 25 mg PO Q OTHER DAY 07/30/20 03/16/23 History irbesartan 150 mg tablet 150 mg PO HS 07/30/20 03/16/23 History cholecalciferol (vitamin D3) 50 2,000 unit PO BID 08/23/20 03/16/23 History mcg (2,000 unit) tablet (Vitamin D3) nitroglycerin 0.4 mg sublingual 0.4 mg sublingual Q5M PRN chest 07/30/22 03/16/23 Rx tablet pain #30 tabs azelastine 205.5 mcg (0.15 %) 1 spray intranasal QPM 12/21/22 03/16/23 History nasal spray (Astepro Allergy) budesonide-formoterol HFA 80 1 inh inhalation BID 12/21/22 03/16/23 History mcg-4.5 mcg/actuation aerosol inhaler (Symbicort) albuterol sulfate 90 mcg/actuation 2 puff inhalation QID PRN SOB 01/04/23 03/16/23 History aerosol inhaler cetirizine 10 mg tablet 10 mg PO DAILY PRN ALLERGY RELIEF 01/04/23 03/16/23 History ezetimibe 10 mg tablet (Zetia) 10 mg PO QAM #90 tabs 02/19/23 03/16/23 Rx colestipol 1 gram tablet 1 g PO BID 03/09/23 03/16/23 History guaifenesin 1,200 mg tablet, 1,200 mg PO Q12H 03/09/23 03/16/23 History extended release 12 hr (Mucinex) Allergies Allergy/AdvReac Type Severity Reaction Status Date / Time amlodipine Allergy Intermediate severe Verified 03/16/23 14:12 swelling in ankle/feet Tqglabb-FBT-GzU Reductase AdvReac Intermediate LEG Verified 03/16/23 14:12 Inhibitor CRAMPS, [Occwzva-Zuy-Srh Reductase FLUSHED Inhibitor] aspirin AdvReac Mild GI UPSET Verified 03/16/23 14:12 WITH PROLONGED USE Cipro AdvReac Mild GI SYMPTOMS Verified 02/24/18 21:56 ciprofloxacin AdvReac Mild GI SYMPTOMS Verified 03/16/23 14:12 irbesartan AdvReac Mild dizziness Verified 03/16/23 14:12 NSAIDS (Non-Steroidal AdvReac Mild Gastrointestinal Verified 03/16/23 14:12 Anti-Inflamma Upset ranitidine AdvReac Mild TIRED Verified 03/16/23 14:12 Past Med/Surg History Medical History Anxiety CAD in [place] artery Chronic cough Diarrhea intermittent x 6 mos, reason for upcoming procedure Diverticulosis Dyslipidemia Severe adverse reaction to statins Empyema of lung Enlarged prostate hx GERD (gastroesophageal reflux disease) HTN (hypertension) Intercostal neuralgia Interstitial lung disease 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 Pulmonary nodules Surgical History H/O hand surgery RIGHT X 2-S/P INJURY History of ankle surgery RIGHT ACHILLES History of cardiac cath 2016 1 STENT-NO ISSUES SINCE F/U DR GARCIA History of colonoscopy History of discectomy LUMBAR History of esophagogastroduodenoscopy (EGD) History of excision of pilonidal cyst History of herniorrhaphy R/L GROIN History of repair of rotator cuff LEFT X 4/RIGHT X 1 History of tonsillectomy Hx laparoscopic cholecystectomy 2017 [facility] Nausea and vomiting after administration of anesthetic agent Status post lung surgery (08/10/19) Right Video Assisted Thoracoscopy with Decortication(Right) RUL wedge biopsy Dr. Huntley 08/10/19 Family History Father , Alcohol abuse led to his at 69. No problems noted. Mother , at 96 and was functional up to her . No problems noted. Family/Other Family hx of colon cancer NEPHEW Other No family history of adverse response to anesthesia No significant family history Social History Smoking Status: Former smoker Tobacco Type: Cigarettes Age Started Using Tobacco: 17; Age Quit Using Tobacco: 21; packs per day: 1; Cigarettes Per Day: quit 1971; Second Hand Exposure: No; Do You Dip or Chew Tobacco: No; Hx Alcohol Use: Yes Alcohol type: beer Hx Substance Use: No Preferred Language: Spanish Communication Ability: Effective Visual Impairment: No Limitations Hearing Ability: Normal Medical Information Specialist Required: No Beliefs That Will Affect Care: None marital status: / Current Living Situation: Alone current occupational status: retired 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 Feels Safe at Home: Yes Assistive Devices: Glasses Review of Systems A total of 10 systems reviewed and were otherwise negative Constitutional: + fever and + body aches Cardiovascular: no chest pain Gastrointestinal: + diarrhea/loose stools; no abdominal pain Physical Exam Vital Signs Vital Signs - 24 hr 04/11/23 07:05 04/11/23 07:32 04/11/23 07:35 Temperature 37.2 C Temperature Source Oral Pulse Rate 86 Pulse Rate [Left Apical] 78 Pulse Rhythm [Left Apical] Regular Pulse Strength [Left Apical] Normal Respiratory Rate 30 H 16 Respiratory Effort / Characteristics Non-Labored Spontaneous Respiratory Depth Normal Blood Pressure 103/69 Blood Pressure [Right Arm] 131/74 Blood Pressure Mean 80 Blood Pressure Mean [Right Arm] 93 Pulse Oximetry 95 96 96 Oxygen Delivery Method Room Air Room Air Room Air Sepsis New/Unexplained Change in Mental Status No Sepsis Action Taken by Nursing No Action Required 04/11/23 08:12 04/11/23 08:15 Temperature Temperature Source Pulse Rate 68 Pulse Rate [Left Apical] 66 Pulse Rhythm [Left Apical] Regular Pulse Strength [Left Apical] Normal Respiratory Rate 20 Respiratory Effort / Characteristics Non-Labored Spontaneous Respiratory Depth Normal Blood Pressure Blood Pressure [Right Arm] 125/85 Blood Pressure Mean Blood Pressure Mean [Right Arm] 98 Pulse Oximetry 98 Oxygen Delivery Method Room Air Sepsis New/Unexplained Change in Mental Status Sepsis Action Taken by Nursing GENERAL: Patient is awake alert in no acute distress patient is resting comfortably and showing no signs of anxiety EYES: The conjunctivae are clear. The pupils are round and reactive. EARS, NOSE, MOUTH AND THROAT: The nose is without any evidence of any deformity. Mucous membranes are moist. Tongue is midline. NECK: The neck is nontender and supple. RESPIRATORY: Normal respiratory effort is noted there is no evidence of wheezing rhonchi or rales CARDIOVASCULAR: Regular rate and rhythm noted there no murmurs rubs or gallops normal S1 normal S2. GASTROINTESTINAL: The abdomen is soft. Abdomen is nontender. BACK: No midline tenderness or or step-off noted range of motion in flexion extension as well as rotation no signs of muscle spasm noted MUSCULOSKELETAL/EXTREMITIES: There is no evidence of gross deformity full range of motion is noted in the hips and shoulders. SKIN: There is no obvious evidence of any rash. There are no petechiae, pallor or cyanosis noted. NEUROLOGIC: Patient is awake alert and oriented x3 strength is symmetric Course Reevaluation(s) Reevaluation #1: Patient is resting in no distress, was given IV fluids, was started on Rocephin and Zithromax. Time: 08:50 Consultations Consultation #1: Case was discussed with the [facility] hospitalist for admission Time: 08:40 Administered Medications Azithromycin 500 mg/ Dextrose 255 mls @ 125 mls/hr IV ONE ONE Stop: 04/11/23 09:45 Last Admin: 04/11/23 08:37 Dose: 125 mls/hr Documented By: TW Discontinued Medications Ceftriaxone Sodium (Rocephin) 2,000 mg in 70 mls @ 140 mls/hr IV NOW STA Stop: 04/11/23 08:12 Last Infusion: 04/11/23 08:38 Dose: 0 mls/hr Documented By: Admin: 04/11/23 07:57 Dose: 140 mls/hr Documented By: CESAR Medical Decision Making Medical Records Attestation: I reviewed the patient's medical records. Home Medications Current Medication List: was personally reviewed by me Laboratory Data Attestation: I reviewed the patient's lab results. Lab work interpreted by me patient has an elevation in lactate 04/11/23 07:25 04/11/23 07:25 Lab Results 04/11/23 04/11/23 04/11/23 Range/Units 07:25 07:25 07:25 WBC 9.09 (4.8-10.8) K/ul RBC 5.02 (4.70-6.10) M/uL Hgb 16.3 (14.0-18.0) g/dl Hct 44.1 (42.0-52.0) % MCV 87.8 (80.0-100.0) fL MCH 32.5 (25.0-34.0) pg MCHC 37.0 H (32.0-36.0) g/dL RDW Std Deviation 39.2 (36.4-46.3) fL RDW Coeff of Carli 12.1 (11.5-14.5) % Plt Count 139 (130-400) K/uL MPV 9.7 (9.4-12.4) fL Immature Gran % (Auto) 0.3 % Neut % (Auto) 68.6 % Lymph % (Auto) 16.3 % Mayes % (Auto) 13.2 % Eos % (Auto) 1.4 % Baso % (Auto) 0.2 % Neut # (Auto) 6.23 (1.40-6.50) K/uL Lymph # (Auto) 1.48 (1.2-3.4) K/uL Mayes # (Auto) 1.20 H (0.11-0.59) K/uL Eos # (Auto) 0.13 (0-0.50) K/uL Baso # (Auto) 0.02 (0-0.2) K/uL Immature Gran # (Auto) 0.03 (0.01-0.20) K/uL Sodium 133 L (136-145) mmol/L Potassium 3.5 (3.5-5.1) mmol/L Chloride 98 (98-107) mmol/L Carbon Dioxide 25 (21-32) mmol/L Anion Gap 10 (3-11) BUN 20 (6-23) mg/dl Creatinine 0.98 (0.6-1.4) mg/dl Est Cr Clr Drug Dosing 67.6 ml/min Est GFR ( Amer) 84.6 ml/min Est GFR (Non-Af Amer) 73.0 ml/min BUN/Creatinine Ratio 20.4 H (10-20) Glucose 150 H (70-99(Fasting)) mg/dl Lactate 2.2 H* (0.4-2.0) mmol/L Calcium 9.3 (8.6-10.3) mg/dl Magnesium 1.7 (1.7-2.4) mg/dl Total Bilirubin 0.7 (0.2-1.0) mg/dl Direct Bilirubin 0.1 (0-0.2) mg/dl AST 42 H (13-39) U/L ALT 65 H (7-52) U/L Alkaline Phosphatase 72 (34-104) U/L Troponin I High Sens 5.0 (0-20) pg/ml Total Protein 7.2 (6.0-8.3) gm/dl Albumin 3.7 (3.4-5.0) gm/dl Procalcitonin (0-0.5) ng/ml SARS-CoV-2, RNA, NAAT (NEGATIVE) 04/11/23 04/11/23 Range/Units 07:25 07:25 WBC (4.8-10.8) K/ul RBC (4.70-6.10) M/uL Hgb (14.0-18.0) g/dl Hct (42.0-52.0) % MCV (80.0-100.0) fL MCH (25.0-34.0) pg MCHC (32.0-36.0) g/dL RDW Std Deviation (36.4-46.3) fL RDW Coeff of Carli (11.5-14.5) % Plt Count (130-400) K/uL MPV (9.4-12.4) fL Immature Gran % (Auto) % Neut % (Auto) % Lymph % (Auto) % Mayes % (Auto) % Eos % (Auto) % Baso % (Auto) % Neut # (Auto) (1.40-6.50) K/uL Lymph # (Auto) (1.2-3.4) K/uL Mayes # (Auto) (0.11-0.59) K/uL Eos # (Auto) (0-0.50) K/uL Baso # (Auto) (0-0.2) K/uL Immature Gran # (Auto) (0.01-0.20) K/uL Sodium (136-145) mmol/L Potassium (3.5-5.1) mmol/L Chloride (98-107) mmol/L Carbon Dioxide (21-32) mmol/L Anion Gap (3-11) BUN (6-23) mg/dl Creatinine (0.6-1.4) mg/dl Est Cr Clr Drug Dosing ml/min Est GFR ( Amer) ml/min Est GFR (Non-Af Amer) ml/min BUN/Creatinine Ratio (10-20) Glucose (70-99(Fasting)) mg/dl Lactate (0.4-2.0) mmol/L Calcium (8.6-10.3) mg/dl Magnesium (1.7-2.4) mg/dl Total Bilirubin (0.2-1.0) mg/dl Direct Bilirubin (0-0.2) mg/dl AST (13-39) U/L ALT (7-52) U/L Alkaline Phosphatase (34-104) U/L Troponin I High Sens (0-20) pg/ml Total Protein (6.0-8.3) gm/dl Albumin (3.4-5.0) gm/dl Procalcitonin 0.14 (0-0.5) ng/ml SARS-CoV-2, RNA, NAAT NEGATIVE (NEGATIVE) Imaging Data Attestation: I personally reviewed and interpreted this imaging study as follows: My Impression: Chest x-ray interpreted by me bilateral interstitial increased lung markings, questionable pleural effusion in the right side, no pneumothorax Radiologist's Impression: Chest X-Ray 04/11/23 07:16 XR chest 1V portable CLINICAL HISTORY: Sepsis. COMPARISON STUDY: Chest CT February 26, 2020 chest radiograph December 03, 2022. FINDINGS: Elevation of the right hemidiaphragm is unchanged. Cardiomegaly is unchanged. There is no pneumothorax or pleural effusion. There is no evidence for pulmonary edema. Lower lung interstitial thickening is chronic. There is mild left lower lung opacity, not evident on prior exam. Otherwise, the a ppearance of the chest is unchanged. IMPRESSION: 1. Mild left lower lung opacity, not evident on prior exam. An infectious process cannot be excluded. 2. Otherwise, no significant change in appearance of the chest with lower lung predominant interstitial thickening which is chronic. ACT 112: Negative or not required by law. Electronically signed by: Jesus Munson M.D. 04/11/2023 7:39 AM Abdomen/Pelvis CT 04/11/23 07:20 CT OF THE ABDOMEN AND PELVIS WITHOUT CONTRAST CLINICAL HISTORY: Abdominal pain and diarrhea. COMPARISON STUDY: CT of the abdomen and pelvis February 26, 2023. TECHNIQUE: Axial images of the abdomen and pelvis were obtained without IV contrast. Images were reviewed in the axial, sagittal, and coronal planes. Automated exposure control was utilized for the study. A dose lowering technique was utilized adhering to the principles of ALARA. FINDINGS: Interstitial thickening within the lower lungs is chronic. Elevation of the right hemidiaphragm is unchanged. No pneumatosis, free air or portal venous gas is present. There is no biliary ductal dilatation status post cholecystectomy. Pneumobilia is again noted. The previously described chronic right subdiaphragmatic fluid collection has mildly increased in size since CT of February 26, 2023. This now measures 4.6 x 1.5 cm. It measured 2.8 x 1.[address] of February 26, 2023. This collection has been present dating back to CT of February 26, 2020. No additional collections are present. There is no evidence for a bowel obstruction. There is colonic diverticulosis. No evidence for acute diverticulitis. The appendix is normal. A water attenuation right renal lesion favors a cyst. There is no hydronephrosis. Spleen, adrenal glands and pancreas are unremarkable on this unenhanced exam. Small umbilical hernia contains a portion of the small bowel. This does not result in a bowel obstruction. IMPRESSION: 1. Mild increase in size of the previously described small right subdiaphragmatic collection which now measures 4.6 x 1.5 cm. This collection is chronic but has increased in size since prior CT of March 08, 2023 and sterility cannot be assessed by CT. 2. No bowel obstruction. No bowel wall thickening on unenhanced exam. 3. Colonic diverticulosis. No evidence for acute diverticulitis. ACT 112: Negative or not required by law. Electronically signed by: Jesus Munson M.D. 04/11/2023 8:13 AM ECG Data Attestation: I personally reviewed and interpreted this ECG as follows: Additional Comments: EKG interpreted by me normal sinus rhythm normal intervals normal axis no obvious ST segment elevation or depression Telemetry was ordered by me, interpreted as normal sinus rhythm rate of 82 MDM Narrative Medical decision making differential diagnosis includes sepsis, urinary tract infection, pneumonia, viral syndrome, gastroenteritis, metabolic derangement, dehydration Plan is to check sepsis labs, CT abdomen pelvis External medical records were reviewed by me Patient was started on IV fluids, IV Rocephin and Zithromax, patient has no indication of severe sepsis or septic shock at this time. Patient will be admitted for further treatment of early sepsis pneumonia. The case was discussed with Dr. Valencia for admission Impression & Plan Pneumonia, SIRS (systemic inflammatory response syndrome) Discharge Plan Visit Data Chief Complaint: Fever Stated Complaint: CHILLS,FEVER,SWEATING ED Provider: Matt Lane Discharge Problem: Pneumonia, SIRS (systemic inflammatory response syndrome) Patient Disposition: Admitted As Inpatient Forms Stand Alone Forms: My [facility] Prescriptions Prescriptions: No Action budesonide-formoterol [Symbicort] 80-4.5 mcg/actuation HFA aerosol inhaler 1 inh inhalation BID azelastine [Astepro Allergy] 205.5 mcg (0.15 %) spray,non-aerosol 1 spray intranasal QPM Rx Instructions: administer into each nostril ezetimibe [Zetia] 10 mg tablet 10 mg PO QAM Qty: 90 3RF cetirizine 10 mg tablet 10 mg PO DAILY PRN (Reason: ALLERGY RELIEF) albuterol sulfate 90 mcg/actuation HFA aerosol inhaler 2 puff inhalation QID PRN (Reason: SOB) chlorthalidone 25 mg tablet 25 mg PO Q OTHER DAY Patient Comments: takes in the am irbesartan 150 mg tablet 150 mg PO HS famotidine [Pepcid] 20 mg tablet 20 mg PO QAM nitroglycerin 0.4 mg tablet, sublingual 0.4 mg SL Q5M PRN (Reason: chest pain) Qty: 30 0RF metoprolol succinate [Toprol XL] 25 mg tablet extended release 24 hr 25 mg PO QAM aspirin [Adult Low Dose Aspirin] 81 mg tablet,delayed release (DR/EC) 81 mg PO Q OTHER DAY Patient Comments: takes in the am cholecalciferol (vitamin D3) [Vitamin D3] 50 mcg (2,000 unit) Tablet 2,000 unit PO BID Mucinex 1,200 mg Tablet Extended Release 12hr 1,200 mg PO Q12H colestipol 1 gram tablet 1 g PO BID Referrals Referrals: Kurtis Carrasco MD [Physician] -
--- NOTE | 2023-04-11 07:41 | XRay Report ---
XR chest 1V portable CLINICAL HISTORY: Sepsis. COMPARISON STUDY: Chest CT February 26, 2020 chest radiograph December 03, 2022. FINDINGS: Elevation of the right hemidiaphragm is unchanged. Cardiomegaly is unchanged. There is no p neumothorax or pleural effusion. There is no evidence for pulmonary edema. Lower lung interstitial th ickening is chronic. There is mild left lower lung opacity, not evident on prior exam. Otherwise, the appearance of the chest is unchanged. IMPRESSION: 1. Mild left lower lung opacity, not evident on prior exam. An infectious process cannot be excluded. 2. Otherwise, no significant change in appearance of the chest with lower lung predominant interstiti al thickening which is chronic. ACT 112: Negative or not required by law. Electronically signed by: Jesus Munson M.D. 04/11/2023 7:39 AM
[2023-04-11] MEDS ORDERED: AZITHROMYCIN 500 MG in DEXTROSE 5% 250 ML IV ONE (07:43)
[2023-04-11] MEDS ORDERED: cefTRIAXone SODIUM 2,000 MG/70 ML BAG IV STA (07:43)
[2023-04-11 07:53] LABS: Basophils # (auto) 0.02 K/uL (0-0.2); Basophils % (auto) 0.2 %; Eosinophils # (auto) 0.13 K/uL (0-0.50); Eosinophils % (auto) 1.4 %; Hematocrit (blood only) 44.1 % (42.0-52.0); Hemoglobin 16.3 g/dl (14.0-18.0); Immature Granulocytes # (auto) 0.03 K/uL (0.01-0.20); Immature Granulocytes % (auto) 0.3 %; Lymphocytes # (auto) 1.48 K/uL (1.2-3.4); Lymphocytes % (auto) 16.3 %; Mean Corpuscular Hemoglobin 32.5 pg (25.0-34.0); Mean Corpuscular Volume 87.8 fL (80.0-100.0); Mean Platelet Volume 9.7 fL (9.4-12.4); Monocytes % (auto) 13.2 %; Neutrophils # (auto) 6.23 K/uL (1.40-6.50); Neutrophils % (auto) 68.6 %; Platelet Count 139 K/uL (130-400); RDW Coefficient of Variation 12.1 % (11.5-14.5); RDW Standard Deviation 39.2 fL (36.4-46.3); Red Blood Count 5.02 M/uL (4.70-6.10); White Blood Count 9.09 K/ul (4.8-10.8)
--- NOTE | 2023-04-11 08:15 | CT Scan Report ---
CT OF THE ABDOMEN AND PELVIS WITHOUT CONTRAST CLINICAL HISTORY: Abdominal pain and diarrhea. COMPARISON STUDY: CT of the abdomen and pelvis February 26, 2023. TECHNIQUE: Axial images of the abdomen and pelvis were obtained without IV contrast. Images were revi ewed in the axial, sagittal, and coronal planes. Automated exposure control was utilized for the nick dy. A dose lowering technique was utilized adhering to the principles of ALARA. FINDINGS: Interstitial thickening within the lower lungs is chronic. Elevation of the right hemidiaph ragm is unchanged. No pneumatosis, free air or portal venous gas is present. There is no biliary duct al dilatation status post cholecystectomy. Pneumobilia is again noted. The previously described chron ic right subdiaphragmatic fluid collection has mildly increased in size since CT of February 26, 2023. Thi s now measures 4.6 x 1.5 cm. It measured 2.8 x 1.[address] of February 26, 2023. This collection has been present dating back to CT of February 26, 2020. No additional collections are present. There is no eviden ce for a bowel obstruction. There is colonic diverticulosis. No evidence for acute diverticulitis. Th e appendix is normal. A water attenuation right renal lesion favors a cyst. There is no hydronephrosi s. Spleen, adrenal glands and pancreas are unremarkable on this unenhanced exam. Small umbilical darleen ia contains a portion of the small bowel. This does not result in a bowel obstruction. IMPRESSION: 1. Mild increase in size of the previously described small right subdiaphragmatic collection which no w measures 4.6 x 1.5 cm. This collection is chronic but has increased in size since prior CT of March 08, 2023 and sterility cannot be assessed by CT. 2. No bowel obstruction. No bowel wall thickening on unenhanced exam. 3. Colonic diverticulosis. No evidence for acute diverticulitis. ACT 112: Negative or not required by law. Electronically signed by: Jesus Munson M.D. 04/11/2023 8:13 AM
[2023-04-11 08:22] LABS: Albumin Level 3.7 gm/dl (3.4-5.0); Bilirubin Direct 0.1 mg/dl (0-0.2); Bilirubin,Total 0.7 mg/dl (0.2-1.0); Calcium 9.3 mg/dl (8.6-10.3); Magnesium 1.7 mg/dl (1.7-2.4); Potassium 3.5 mmol/L (3.5-5.1)
[2023-04-11 08:28] LABS: BUN Creatinine Ratio 20.4 (10-20); Creatinine Clr Calc Pharmacy 67.6 ml/min; Est GFR (African American) 84.6 ml/min; Total Protein 7.2 gm/dl (6.0-8.3)
--- NOTE | 2023-04-11 09:23 | History & Physical Report ---
Date of Service April 11, 2023 Assessment & Plan (1) Pneumonia: Plan: patient with SIRS criteria new left lower lobe infiltrate typically sees Dr. Hawk for pulmonary issues including emphysema, interstitial lung disease, nodules previous empyema previous empyema was with Citrobacter history of some diaphragmatic abscess status post decortication and extensive antibiotic therapy per Dr. Hawk's office note of October 2022 the subdiaphragmatic abscess has resolved however it is noted to be seen on CT scan patient was started on ceftriaxone and azithromycin by the ER. Patient's previous Citrobacter was pansensitive including the ceftriaxone that was ordered will likely need to consider discussion with general surgery or interventional radiology drainage of this fluid collection to read and analyzed the possibility of recurrence for chronic lung disease/COPD remains on budesonide formoterol other possibilities for the patient's fever despite the x-ray changes would be gastrointestinal as he had a prehospital issue with gastrointestinal symptoms and did have question of food poisoning. He however said improvement of his bowel habits the day prior to presenting. Current antibiotics are not appropriate for any gastrointestinal issue subsequently if he has a loose bowel movement stool PCR and C. difficile will be sent (2) CAD in [place] artery: Plan: patient has a circumflex stent typically takes aspirin, metoprolol, irebsartan colestipol and ezetimebe for treatment of htn also on chlorthalidone History of Present Illness Primary Care Provider: Michelle Regan DO 78-year-old male history of interstitial lung disease presents to the emergency department with a day history of shaking chills and rigors with a temp at home of 102 F. Prior to this He has been having a work-up with [facility] gastroenterology for persistent abdominal discomfort nausea and loose bowel movements. he had a little bit of Worsening diarrhea few days After eating what he said was spoiled meat. Patient did have a formed bowel movement on day of presentation. patient states he has a daily cough but has had no change in the cough or change in mucus production no other focal signs of infection such as abdominal pain or dysuria (she does have frequency which is not new for him. chest x-ray looks to have a left lower lobe infiltrate but baseline chronic lung disease however is not increasingly hypoxic nor does he have a leukocytosis he is COVID-negative in the ER Allergies Allergy/AdvReac Type Severity Reaction Status Date / Time amlodipine Allergy Intermediate severe Verified 03/16/23 14:12 swelling in ankle/feet Zmgadwj-EAZ-MqK Reductase AdvReac Intermediate LEG Verified 03/16/23 14:12 Inhibitor CRAMPS, [Tlkzrbr-Vzq-Omr Reductase FLUSHED Inhibitor] aspirin AdvReac Mild GI UPSET Verified 03/16/23 14:12 WITH PROLONGED USE Cipro AdvReac Mild GI SYMPTOMS Verified 02/24/18 21:56 ciprofloxacin AdvReac Mild GI SYMPTOMS Verified 03/16/23 14:12 irbesartan AdvReac Mild dizziness Verified 03/16/23 14:12 NSAIDS (Non-Steroidal AdvReac Mild Gastrointestinal Verified 03/16/23 14:12 Anti-Inflamma Upset ranitidine AdvReac Mild TIRED Verified 03/16/23 14:12 Home Medications Medication Instructions Recorded Confirmed Type famotidine 20 mg tablet (Pepcid) 20 mg PO QAM 07/26/19 03/16/23 History metoprolol succinate 25 mg 25 mg PO QAM 08/07/19 03/16/23 History tablet,extended release 24 hr (Toprol XL) aspirin 81 mg tablet,delayed 81 mg PO Q OTHER DAY 02/20/20 03/16/23 History release (Adult Low Dose Aspirin) chlorthalidone 25 mg tablet 25 mg PO Q OTHER DAY 07/30/20 03/16/23 History irbesartan 150 mg tablet 150 mg PO HS 07/30/20 03/16/23 History cholecalciferol (vitamin D3) 50 2,000 unit PO BID 08/23/20 03/16/23 History mcg (2,000 unit) tablet (Vitamin D3) nitroglycerin 0.4 mg sublingual 0.4 mg sublingual Q5M PRN chest 07/30/22 03/16/23 Rx tablet pain #30 tabs azelastine 205.5 mcg (0.15 %) 1 spray intranasal QPM 12/21/22 03/16/23 History nasal spray (Astepro Allergy) budesonide-formoterol HFA 80 1 inh inhalation BID 12/21/22 03/16/23 History mcg-4.5 mcg/actuation aerosol inhaler (Symbicort) albuterol sulfate 90 mcg/actuation 2 puff inhalation QID PRN SOB 01/04/23 03/16/23 History aerosol inhaler cetirizine 10 mg tablet 10 mg PO DAILY PRN ALLERGY RELIEF 01/04/23 03/16/23 History ezetimibe 10 mg tablet (Zetia) 10 mg PO QAM #90 tabs 02/19/23 03/16/23 Rx colestipol 1 gram tablet 1 g PO BID 03/09/23 03/16/23 History guaifenesin 1,200 mg tablet, 1,200 mg PO Q12H 03/09/23 03/16/23 History extended release 12 hr (Mucinex) Past Med/Surg History Medical History (Updated 04/11/23 @ 09:18 by Gamal Brand MD) Anxiety CAD in [place] artery drug-eluting stent left circumflex artery Chronic cough Diarrhea intermittent x 6 mos, reason for upcoming procedure Diverticulosis Dyslipidemia Severe adverse reaction to statins Empyema of lung Enlarged prostate hx GERD (gastroesophageal reflux disease) HTN (hypertension) Intercostal neuralgia Interstitial lung disease 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 Pulmonary nodules Surgical History H/O hand surgery RIGHT X 2-S/P INJURY History of ankle surgery RIGHT ACHILLES History of cardiac cath 2016 1 STENT-NO ISSUES SINCE F/U DR GARCIA History of colonoscopy History of discectomy LUMBAR History of esophagogastroduodenoscopy (EGD) History of excision of pilonidal cyst History of herniorrhaphy R/L GROIN History of repair of rotator cuff LEFT X 4/RIGHT X 1 History of tonsillectomy Hx laparoscopic cholecystectomy 2017 [facility] Nausea and vomiting after administration of anesthetic agent Status post lung surgery (08/10/19) Right Video Assisted Thoracoscopy with Decortication(Right) RUL wedge biopsy Dr. Huntley 08/10/19 Family History Father , Alcohol abuse led to his at 69. No problems noted. Mother , at 96 and was functional up to her . No problems noted. Family/Other Family hx of colon cancer NEPHEW Other No family history of adverse response to anesthesia No significant family history Social History Smoking Status: Former smoker Tobacco Type: Cigarettes Age Started Using Tobacco: 17; Age Quit Using Tobacco: 21; packs per day: 1; Cigarettes Per Day: quit 1971; Second Hand Exposure: No; Do You Dip or Chew Tobacco: No; Hx Alcohol Use: Yes Alcohol type: beer Hx Substance Use: No Preferred Language: Venezuelan Communication Ability: Effective Visual Impairment: No Limitations Hearing Ability: Normal [employer] Required: No Beliefs That Will Affect Care: None marital status: / Current Living Situation: Alone current occupational status: retired 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 Feels Safe at Home: Yes Assistive Devices: Glasses Review of Systems Review of Systems: Mod distress and fatigue no headache, no visual changes no speech or swallowing issues persistent chest pain, right lower reducible with no pressure or palpitations baseline typical shortness of breath, chronic daily cough chronic right upper quadrant abdominal pain, mild nausea with vomiting, some resolved diarrhea typical dysuria, but no hematuria or frequency no focal joint pain or swelling no back pain, CVA tenderness or radicular pain no bruising, bleeding or rashes no focal signs of weakness or numbness or altered sensation no complaints of anxiety or depression.. Physical Exam Physical Exam: The patient appeared well nourished and normally developed. he was short of breath with casual conversation Vital signs as documented. Head exam is normocephalic atraumatic Neck is without JVD, thyromegaly, or carotid bruits. Lungs are clear to auscultation, but course, no focal loss of breath sounds Cardiac exam, Rhythm is regular.. No murmurs, rubs or gallops. Abdominal exam reveals normal bowel sounds, soft right upper quadrant tenderness in the location has been addressed in the past Extremities are nonedematous and both pedal pulses are present Neurologic exam is alert and oriented, no focal loss of strength or sensation Skin is without bruises or rashes Psychologically is without concerns for anxiety or depression.. Results & Data Results & Data Vital Signs (Past 12 Hours) Vital Signs Temp Pulse Pulse Resp BP BP Pulse Ox 04/11/23 09:08 67 16 133/79 96 04/11/23 08:15 66 20 125/85 98 04/11/23 08:12 68 04/11/23 07:35 96 04/11/23 07:32 78 16 131/74 96 04/11/23 07:05 99.0 F 86 30 H 103/69 95 O2 Del Method 04/11/23 09:08 Room Air 04/11/23 08:15 Room Air 04/11/23 08:12 04/11/23 07:35 Room Air 04/11/23 07:32 Room Air 04/11/23 07:05 Room Air Laboratory Results Reviewed CBC, reviewed chemistry, reviewed COVID testing personally reviewed CT scan chest personally reviewed EKG PG Care Time/CCT Total # of Minutes Spent Total Time Spent with Patient: Total time spent is greater than 50% in coordination of care (as documented) at patient's floor/unit and/or counseling patient: Coding Level of Care Code 40673 INT INP/OBS CARE 3MIN Diagnoses Pneumonia J18.9 CAD in [place] artery I25.10
--- NOTE | 2023-04-11 10:05 | Electrocardiogram Report ---
Test Reason : Blood Pressure : / mmHG Vent. Rate : 086 BPM Atrial Rate : 086 BPM P-R Int : 180 ms QRS Dur : 108 ms QT Int : 386 ms P-R-T Axes : 044 -26 014 degrees QTc Int : 461 ms Normal sinus rhythm Normal ECG When compared with ECG of 09-AUG-2019 06:21, No significant change Confirmed by Bishop Sheppard ([id number]) on 04/11/2023 10:05:14 AM Referred By: REFERRED SELF Confirmed By:Bishop Sheppard
[2023-04-11] MEDS ORDERED: NITROGLYCERIN SL 0.4 MG/TAB TAB SL PRN (10:26)
[2023-04-11] MEDS ORDERED: ACETAMINOPHEN 325 MG TAB PO PRN (10:26)
[2023-04-11] MEDS ORDERED: ONDANSETRON INJ 2 MG/ML 2 ML VIAL IV PRN (10:26)
[2023-04-11] MEDS ORDERED: ALUMINUM/MAGNESIUM SUSP 30 ML UDC PO PRN (10:26)
[2023-04-11] MEDS ORDERED: ALBUTEROL HFA 8 GM INHALER INH PRN (10:26)
[2023-04-11] MEDS ORDERED: CETIRIZINE HCL 10 MG TABLET PO PRN (10:26)
[2023-04-11] MEDS ORDERED: AZITHROMYCIN 250 MG TAB PO ONE (10:30)
[2023-04-11] MEDS ORDERED: PROMETHAZINE HCL 12.5 MG/10 ML UDP PO PRN (10:30)
[2023-04-11] MEDS ORDERED: oxyCODONE HCL IR 5 MG TAB (IMMEDIATE RELEASE) PO PRN (10:30)
[2023-04-11] MEDS ORDERED: MoRPHine SULFATE 2 MG/ML CARP IV PRN (10:30)
[2023-04-11] MEDS: FAMOTIDINE 20 MG TAB PO SCH (11:16)
[2023-04-11] MEDS: guaiFENesin 600 MG TABCR PO SCH ×2 (11:16→20:22)
[2023-04-11] MEDS: METOPROLOL SUCC 25MG EXT REL TAB PO SCH (11:16)
[2023-04-11 20:13] LABS: Appearance Urine Clear (Clear); Bilirubin Urine Negative (Negative); Blood Urine Negative (Negative); Color Urine Yellow; Glucose Urine UA Negative (Negative); Ketones Urine Trace (Negative); Leukocyte Esterase Urine Negative (Negative); Nitrite Urine Negative (Negative); Protein Urine Negative (Negative); Specific Gravity Urine 1.022 (1.000-1.030); Urobilinogen Urine Negative (Negative)
[2023-04-11] MEDS: CHOLECALCIFEROL 1,000 UNITS 25 MCG TAB PO SCH (20:21)
[2023-04-11] MEDS: LOSARTAN POTASSIUM 50 MG TAB PO SCH (20:22)
[2023-04-11] MEDS ORDERED: [UNRECOGNIZED DRUG - REMARK] INTNAS SCH (21:00)
[2023-04-11] MEDS: COLESTIPOL HCL 1 GM TAB PO SCH (21:18)
[2023-04-12 06:21] LABS: Hematocrit (blood only) 42.2 % (42.0-52.0); Hemoglobin 15.2 g/dl (14.0-18.0); Mean Corpuscular Hemoglobin 32.8 pg (25.0-34.0); Mean Corpuscular Volume 91.1 fL (80.0-100.0); Mean Platelet Volume 9.9 fL (9.4-12.4); Platelet Count 127 K/uL (130-400); RDW Coefficient of Variation 12.1 % (11.5-14.5); RDW Standard Deviation 40.2 fL (36.4-46.3); Red Blood Count 4.63 M/uL (4.70-6.10); White Blood Count 8.19 K/ul (4.8-10.8)
[2023-04-12 06:32] LABS: BUN Creatinine Ratio 20.2 (10-20); Creatinine Clr Calc Pharmacy 68.2 ml/min; Est GFR (Non-African American) 76.8 ml/min; Magnesium 1.9 mg/dl (1.7-2.4); Potassium 3.1 mmol/L (3.5-5.1)
[2023-04-12 06:40] LABS: INR 1.1 (0.9-1.1); Partial Thromboplastin Ratio 1.1; Partial Thromboplastin Time 29.8 Seconds (21.0-31.0); Prothrombin Time 11.5 Seconds (9.0-12.0)
[2023-04-12] MEDS: cefTRIAXone SODIUM 2,000 MG in DEXTROSE 5% 50 ML IV SCH (07:06)
[2023-04-12] MEDS ORDERED: MAGNESIUM SULFATE / D5W 1 GM/100 ML BAG IV ONE (07:35)
[2023-04-12] MEDS: CHOLECALCIFEROL 1,000 UNITS 25 MCG TAB PO SCH ×2 (08:27→20:15)
[2023-04-12] MEDS: POTASSIUM CHLORIDE CRTAB 20 MEQ TABCR PO SCH ×2 (08:27→20:16)
[2023-04-12] MEDS: METOPROLOL SUCC 25MG EXT REL TAB PO SCH (08:27)
[2023-04-12] MEDS: guaiFENesin 600 MG TABCR PO SCH ×2 (08:27→20:15)
[2023-04-12] MEDS: AZITHROMYCIN 250 MG TAB PO SCH (08:27)
[2023-04-12] MEDS: FAMOTIDINE 20 MG TAB PO SCH (08:27)
[2023-04-12] MEDS: FLUTICASONE/VILANTEROL 100/25MCG 14 PUFFS/INHALER INH SCH (08:28)
[2023-04-12] MEDS: EZETIMIBE 10 MG TABLET PO SCH (08:28)
[2023-04-12] MEDS ORDERED: ASPIRIN 81 MG ECTAB PO SCH (09:00)
[2023-04-12] MEDS ORDERED: CHLORTHALIDONE 25 MG TAB PO SCH (09:00)
[2023-04-12] MEDS: COLESTIPOL HCL 1 GM TAB PO SCH ×2 (09:38→22:26)
[2023-04-12 10:30] LABS: Adenovirus F 40/41 PCR Not Detected (NotDetected); Astrovirus PCR Not Detected (NotDetected); Campylobacter PCR Not Detected (NotDetected); Cryptosporidium PCR Not Detected (NotDetected); Cyclospora cayetanensis PCR Not Detected (NotDetected); Entamoeba histolytica PCR Not Detected (NotDetected); Enteroaggregative E.coli(EAEC) Not Detected (NotDetected); Enteropathogenic E.coli (EPEC) Not Detected (NotDetected); Enterotoxigenic E.coli (ETEC) Not Detected (NotDetected); Giardia lamblia PCR Not Detected (NotDetected); Norovirus GI/GII PCR Not Detected (NotDetected); Plesiomonas shigelloides PCR Not Detected (NotDetected); Rotavirus A PCR Not Detected (NotDetected); Salmonella PCR Not Detected (NotDetected); Sapovirus PCR Not Detected (NotDetected); Shiga-like Toxin E.coli (STEC) Not Detected (NotDetected); Shigella/Enteroinvasive E.coli Not Detected (NotDetected); Vibrio cholerae PCR Not Detected (NotDetected); Vibrio species PCR Not Detected (NotDetected); Yersinia enterocolitica PCR Not Detected (NotDetected)
--- NOTE | 2023-04-12 18:38 | Hospitalist Progress Note ---
Date of Service April 12, 2023 Assessment & Plan (1) Pneumonia: Plan: patient with SIRS criteria new left lower lobe infiltrate typically sees Dr. Hawk for pulmonary issues including emphysema, interstitial lung disease, nodules previous empyema previous empyema was with Citrobacter history of some diaphragmatic abscess status post decortication and extensive antibiotic therapy patient is had fluid collection in the subdiaphragmatic area for some time I spoke to the patient's surgeon was manage this and says that since there is no fat stranding and no significant leukocytosis it best be left alone but he was willing to follow-up in the office. This is Dr. Ray daily and he should have a follow-up appointment after this hospital stay patient was started on ceftriaxone and azithromycin by the ER. Patient's previous Citrobacter was pansensitive including the ceftriaxone that was ordered for chronic lung disease/COPD remains on budesonide formoterol other possibilities for the patient's fever despite the x-ray changes would be gastrointestinal as he had a prehospital issue with gastrointestinal symptoms and did have question of food poisoning. He however said improvement of his bowel habits the day prior to presenting. Current antibiotics are not appropriate for any gastrointestinal issue however stool PCR and C. difficile testing are negative at this time therefore will not alter antibiotics at this time (2) CAD in [place] artery: Plan: patient has a circumflex stent typically takes aspirin, metoprolol, irebsartan colestipol and ezetimebe for treatment of htn also on chlorthalidone Plan patient has no fevers and cultures remain negative patient may consider to be discharged on 04/13 with outpatient follow-up with Dr. Garcia consideration of continuing antibiotics for pneumonia could be undertaken at that time Admission and Anticipated Discharge Date Admission Date: April 11, 2023 Subjective patient has no increase or worsening of pulmonary symptoms and sputum and sputum frequency are at the same patient has no increase in right upper quadrant discomfort which is chronic for him patient has had loose bowel movements this was sent for testing negative for infectious etiologies Physical Exam Physical Exam: patient awake alert appropriate still right upper quadrant discomfort no worse than previous lungs are clear with good air movement abdomen otherwise with normal active bowel sounds Results & Data Results & Data Vital Signs (Past 12 Hours) Vital Signs Temp Pulse Pulse Resp BP Pulse Ox O2 Del Method 04/12/23 14:07 67 04/12/23 15:00 98.1 F 66 18 104/68 93 Room Air 04/12/23 11:00 97.7 F 62 18 100/67 94 Room Air 04/12/23 07:00 97.7 F 68 18 86/58 L 93 Room Air 04/12/23 07:16 Room Air Laboratory Results reviewed CBC reviewed chemistry PG Care Time/CCT Total # of Minutes Spent Total Time Spent with Patient: Total time spent is greater than 50% in coordination of care (as documented) at patient's floor/unit and/or counseling patient: Coding Level of Care Code 25725 SUB INP/OBS CARE 2/35MIN Diagnoses Pneumonia J18.9 CAD in [place] artery I25.10
[2023-04-12] MEDS: LOSARTAN POTASSIUM 50 MG TAB PO SCH (20:15)
[2023-04-13 07:03] LABS: Hematocrit (blood only) 41.8 % (42.0-52.0); Mean Corpuscular Hemoglobin 32.8 pg (25.0-34.0); Mean Corpuscular Hgb Conc 35.9 g/dL (32.0-36.0); Mean Corpuscular Volume 91.3 fL (80.0-100.0); Mean Platelet Volume 9.8 fL (9.4-12.4); Platelet Count 131 K/uL (130-400); RDW Standard Deviation 40.6 fL (36.4-46.3); Red Blood Count 4.58 M/uL (4.70-6.10); White Blood Count 8.34 K/ul (4.8-10.8)
[2023-04-13 07:16] LABS: BUN Creatinine Ratio 19.8 (10-20); Calcium 9.1 mg/dl (8.6-10.3); Creatinine Clr Calc Pharmacy 63.4 ml/min; Est GFR (African American) 81.6 ml/min; Est GFR (Non-African American) 70.4 ml/min; Magnesium 1.9 mg/dl (1.7-2.4); Potassium 3.5 mmol/L (3.5-5.1)
[2023-04-13] MEDS: cefTRIAXone SODIUM 2,000 MG in DEXTROSE 5% 50 ML IV SCH (07:32)
[2023-04-13] MEDS: FLUTICASONE/VILANTEROL 100/25MCG 14 PUFFS/INHALER INH SCH (07:40)
[2023-04-13] MEDS: EZETIMIBE 10 MG TABLET PO SCH (07:41)
[2023-04-13] MEDS: guaiFENesin 600 MG TABCR PO SCH (07:41)
[2023-04-13] MEDS: CHOLECALCIFEROL 1,000 UNITS 25 MCG TAB PO SCH (07:41)
[2023-04-13] MEDS: METOPROLOL SUCC 25MG EXT REL TAB PO SCH (07:41)
[2023-04-13] MEDS: POTASSIUM CHLORIDE CRTAB 20 MEQ TABCR PO SCH (07:41)
[2023-04-13] MEDS: FAMOTIDINE 20 MG TAB PO SCH (07:41)
[2023-04-13] MEDS: AZITHROMYCIN 250 MG TAB PO SCH (07:41)
[2023-04-13] MEDS: COLESTIPOL HCL 1 GM TAB PO SCH (10:37)
--- NOTE | 2023-04-13 13:32 | Discharge Summary ---
Date of Service April 13, 2023 Admission HPI Per Admitting Provider 78-year-old male history of interstitial lung disease presents to the emergency department with a day history of shaking chills and rigors with a temp at home of 102 F. Prior to this He has been having a work-up with [facility] gastroenterology for persistent abdominal discomfort nausea and loose bowel movements. he had a little bit of Worsening diarrhea few days After eating what he said was spoiled meat. Patient did have a formed bowel movement on day of presentation. patient states he has a daily cough but has had no change in the cough or change in mucus production no other focal signs of infection such as abdominal pain or dysuria (she does have frequency which is not new for him. chest x-ray looks to have a left lower lobe infiltrate but baseline chronic lung disease however is not increasingly hypoxic nor does he have a leukocytosis he is COVID-negative in the ER Discharge Data Allergies Allergy/AdvReac Type Severity Reaction Status Date / Time amlodipine Allergy Intermediate severe Verified 03/16/23 14:12 swelling in ankle/feet Gklyhlv-PVT-ExA Reductase AdvReac Intermediate LEG Verified 03/16/23 14:12 Inhibitor CRAMPS, [Dykplbi-Chn-Kll Reductase FLUSHED Inhibitor] aspirin AdvReac Mild GI UPSET Verified 03/16/23 14:12 WITH PROLONGED USE Cipro AdvReac Mild GI SYMPTOMS Verified 02/24/18 21:56 ciprofloxacin AdvReac Mild GI SYMPTOMS Verified 03/16/23 14:12 irbesartan AdvReac Mild dizziness Verified 03/16/23 14:12 NSAIDS (Non-Steroidal AdvReac Mild Gastrointestinal Verified 03/16/23 14:12 Anti-Inflamma Upset ranitidine AdvReac Mild TIRED Verified 03/16/23 14:12 Consultations 04/11/23 08:40 ED Decision to Admit Stat Ordered Studies 04/11/23 07:20 CT abd pelvis wo con Stat Hospital Course (1) Pneumonia: patient with SIRS criteria new left lower lobe infiltrate typically sees Dr. Hawk for pulmonary issues including emphysema, interstitial lung disease, nodules previous empyema previous empyema was with Citrobacter history of some diaphragmatic abscess status post decortication and extensive antibiotic therapy patient is had fluid collection in the subdiaphragmatic area for some time I spoke to the patient's surgeon was manage this and says that since there is no fat stranding and no significant leukocytosis it best be left alone but he was willing to follow-up in the office. This is Dr. Ray daily and he should have a follow-up appointment after this hospital stay patient was started on ceftriaxone and azithromycin by the ER. Patient's previous Citrobacter was pansensitive including the ceftriaxone that was ordered for chronic lung disease/COPD remains on budesonide formoterol other possibilities for the patient's fever despite the x-ray changes would be gastrointestinal as he had a prehospital issue with gastrointestinal symptoms and did have question of food poisoning. He however said improvement of his bowel habits the day prior to presenting. Current antibiotics are not appropriate for any gastrointestinal issue however stool PCR and C. difficile testing are negative at this time therefore will not alter antibiotics at this time (2) CAD in [place] artery: patient has a circumflex stent typically takes aspirin, metoprolol, irebsartan colestipol and ezetimebe for treatment of htn also on chlorthalidone Plan patient has no fevers and cultures remain negative patient may consider to be discharged on 04/13 with outpatient follow-up with Dr. Garcia consideration of continuing antibiotics for pneumonia could be undertaken at that time Total Time Total Time Spent Total Time Spent (In Minutes): 42 minutes Discharge Plan Discharge Items Patient Disposition: Home - Self-Care Reason For Visit: LLL PNEUMONIA, R SUBDIAPHRAGM FLUID COLLECTION Discharge Diagnosis: LLL Pneumonia Right subdiaphragmatic fluid collection Condition on Discharge: Good Health Concerns: Recurrent Citrobacter infection Goals: Feel well at home Activity: Resume your previous activity Lifting: Gradually increase as tolerated Bathing: No limitations Sexual Activity: When tolerated Exercise/Sports: Wait until after follow-up appointment Driving/Machine Use: No limitations Weightbearing: Full weightbearing Non-emergency contact: Primary Care Provider Call non-emergency contact if: your symptoms worsen, your temperature is above 101.5, your wound has increased drainage and your wound pain has increased Follow-up/Referrals: Michelle eRgan DO [Primary Care Provider] - Diet: Regular Addtl Attending Provider Instructions: no further instructions Pending Studies at Discharge: No Stand-Alone Forms: My [employer], Smoking Cessation Medications and DC Order Prescriptions: New azithromycin 250 mg Tablet 500 mg PO QAM Qty: 5 0RF cefdinir 300 mg capsule 300 mg PO BID 10 Days Qty: 20 0RF Continued azelastine [Astepro Allergy] 205.5 mcg (0.15 %) spray,non-aerosol 1 spray intranasal QPM Rx Instructions: unable to verify with pharmacy administer into each nostril ezetimibe [Zetia] 10 mg tablet 10 mg PO QAM Qty: 90 3RF cetirizine 10 mg tablet 10 mg PO DAILY PRN (Reason: ALLERGY RELIEF) Rx Instructions: unable to verify with pharmacy albuterol sulfate 90 mcg/actuation HFA aerosol inhaler 2 puff inhalation QID PRN (Reason: SOB) Rx Instructions: picked up in november chlorthalidone 25 mg tablet 25 mg PO Q OTHER DAY Patient Comments: takes in the am irbesartan 150 mg tablet 150 mg PO HS famotidine [Pepcid] 20 mg tablet 20 mg PO QAM Rx Instructions: unable to verify with pharmacy nitroglycerin 0.4 mg tablet, sublingual 0.4 mg SL Q5M PRN (Reason: chest pain) Qty: 30 0RF Rx Instructions: last picked up in Jul 2022 metoprolol succinate [Toprol XL] 25 mg tablet extended release 24 hr 25 mg PO QAM aspirin [Adult Low Dose Aspirin] 81 mg tablet,delayed release (DR/EC) 81 mg PO Q OTHER DAY Patient Comments: takes in the am Rx Instructions: unable to verify with pharmacy cholecalciferol (vitamin D3) [Vitamin D3] 50 mcg (2,000 unit) Tablet 2,000 unit PO BID Rx Instructions: unable to verify with pharmacy pantoprazole 20 mg tablet,delayed release (DR/EC) 20 mg PO DAILY montelukast 10 mg tablet 10 mg PO DAILY Rx Instructions: january 25 fluticasone propionate 50 mcg/actuation spray,suspension 2 spray INTRANASAL QAM budesonide-formoterol [Symbicort] 160-4.5 mcg/actuation HFA aerosol inhaler 2 puff INHALATION BID Rx Instructions: picked up on january 25 Mucinex 1,200 mg Tablet Extended Release 12hr 1,200 mg PO Q12H Rx Instructions: unable to verify with pharmacy colestipol 1 gram tablet 1 g PO BID Rx Instructions: last picked up 03/18 Discharge Orders: Discharge Order (Routine); Ordered 04/13/23 Ordered By: Gamal De Leon/Other Patient Handouts: What Is Pneumonia?, Treating Pneumonia, When You Have Pneumonia Admission Data Admit Date/Time: 04/11/23 09:37 Attending Provider: Gamal Newby Admit Provider: Gamal Brand Primary Care Provider: Michelle Regan Other Providers: Gamal Brand Other Interventions: Discharge Summary Assessment (RN) Last Done: 04/13/23 12:09 Coding Level of Care Code 86391 INP/OBS DISCH >30 MIN Diagnoses Pneumonia J18.9 CAD in [place] artery I25.10 Time Spent (min) 42
--- NOTE | 2023-04-13 13:57 | Discharge Summary ---
Date of Service April 13, 2023 Principal Diagnosis Pneumonia LLL Empyema Citrobacter Discharge Data Allergies Allergy/AdvReac Type Severity Reaction Status Date / Time amlodipine Allergy Intermediate severe Verified 03/16/23 14:12 swelling in ankle/feet Cqwqeku-OUR-PqP Reductase AdvReac Intermediate LEG Verified 03/16/23 14:12 Inhibitor CRAMPS, [Dfndams-Pjm-Yco Reductase FLUSHED Inhibitor] aspirin AdvReac Mild GI UPSET Verified 03/16/23 14:12 WITH PROLONGED USE Cipro AdvReac Mild GI SYMPTOMS Verified 02/24/18 21:56 ciprofloxacin AdvReac Mild GI SYMPTOMS Verified 03/16/23 14:12 irbesartan AdvReac Mild dizziness Verified 03/16/23 14:12 NSAIDS (Non-Steroidal AdvReac Mild Gastrointestinal Verified 03/16/23 14:12 Anti-Inflamma Upset ranitidine AdvReac Mild TIRED Verified 03/16/23 14:12 Consultations 04/11/23 08:40 ED Decision to Admit Stat Ordered Studies 04/11/23 07:20 CT abd pelvis wo con Stat Hospital Course (1) Pneumonia: (2) CAD in [place] artery: Total Time Total Time Spent Total Time Spent (In Minutes): 42 Discharge Plan Discharge Items Patient Disposition: Home - Self-Care Reason For Visit: LLL PNEUMONIA, R SUBDIAPHRAGM FLUID COLLECTION Discharge Diagnosis: LLL Pneumonia Right subdiaphragmatic fluid collection Condition on Discharge: Good Health Concerns: Recurrent Citrobacter infection Goals: Feel well at home Activity: Resume your previous activity Lifting: Gradually increase as tolerated Bathing: No limitations Sexual Activity: When tolerated Exercise/Sports: Wait until after follow-up appointment Driving/Machine Use: No limitations Weightbearing: Full weightbearing Non-emergency contact: Primary Care Provider Call non-emergency contact if: your symptoms worsen, your temperature is above 101.5, your wound has increased drainage and your wound pain has increased Follow-up/Referrals: Michelle Regan DO [Primary Care Provider] - Diet: Regular Addtl Attending Provider Instructions: no further instructions Pending Studies at Discharge: No Stand-Alone Forms: My [employer], Smoking Cessation Medications and DC Order Prescriptions: New azithromycin 250 mg Tablet 500 mg PO QAM Qty: 5 0RF cefdinir 300 mg capsule 300 mg PO BID 10 Days Qty: 20 0RF Continued azelastine [Astepro Allergy] 205.5 mcg (0.15 %) spray,non-aerosol 1 spray intranasal QPM Rx Instructions: unable to verify with pharmacy administer into each nostril ezetimibe [Zetia] 10 mg tablet 10 mg PO QAM Qty: 90 3RF cetirizine 10 mg tablet 10 mg PO DAILY PRN (Reason: ALLERGY RELIEF) Rx Instructions: unable to verify with pharmacy albuterol sulfate 90 mcg/actuation HFA aerosol inhaler 2 puff inhalation QID PRN (Reason: SOB) Rx Instructions: picked up in november chlorthalidone 25 mg tablet 25 mg PO Q OTHER DAY Patient Comments: takes in the am irbesartan 150 mg tablet 150 mg PO HS famotidine [Pepcid] 20 mg tablet 20 mg PO QAM Rx Instructions: unable to verify with pharmacy nitroglycerin 0.4 mg tablet, sublingual 0.4 mg SL Q5M PRN (Reason: chest pain) Qty: 30 0RF Rx Instructions: last picked up in Jul 2022 metoprolol succinate [Toprol XL] 25 mg tablet extended release 24 hr 25 mg PO QAM aspirin [Adult Low Dose Aspirin] 81 mg tablet,delayed release (DR/EC) 81 mg PO Q OTHER DAY Patient Comments: takes in the am Rx Instructions: unable to verify with pharmacy cholecalciferol (vitamin D3) [Vitamin D3] 50 mcg (2,000 unit) Tablet 2,000 unit PO BID Rx Instructions: unable to verify with pharmacy pantoprazole 20 mg tablet,delayed release (DR/EC) 20 mg PO DAILY montelukast 10 mg tablet 10 mg PO DAILY Rx Instructions: january 25 fluticasone propionate 50 mcg/actuation spray,suspension 2 spray INTRANASAL QAM budesonide-formoterol [Symbicort] 160-4.5 mcg/actuation HFA aerosol inhaler 2 puff INHALATION BID Rx Instructions: picked up on january 25 Mucinex 1,200 mg Tablet Extended Release 12hr 1,200 mg PO Q12H Rx Instructions: unable to verify with pharmacy colestipol 1 gram tablet 1 g PO BID Rx Instructions: last picked up 03/18 Discharge Orders: Discharge Order (Routine); Ordered 04/13/23 Ordered By: Gamal De Leon/Other Patient Handouts: What Is Pneumonia?, Treating Pneumonia, When You Have Pneumonia Admission Data Admit Date/Time: 04/11/23 09:37 Attending Provider: Gamal Newby Admit Provider: Gamal Brand Primary Care Provider: Michelle Regan Other Providers: Gamal Brand Other Interventions: Discharge Summary Assessment (RN) Last Done: 04/13/23 13:53 Coding Level of Care Code 77838 INP/OBS DISCH >30 MIN Diagnoses Pneumonia J18.9 CAD in [place] artery I25.10 Time Spent (min) 42
--- NOTE | 2023-04-13 18:02 | History & Physical Report ---
Date of Service April 13, 2023 Assessment & Plan (1) Pneumonia: (2) CAD in [place] artery: Admission and Anticipated Discharge Date Admission Date: April 11, 2023 History of Present Illness Primary Care Provider: Michelle Regan DO Allergies Allergy/AdvReac Type Severity Reaction Status Date / Time amlodipine Allergy Intermediate severe Verified 03/16/23 14:12 swelling in ankle/feet Xcddtob-XKG-WhA Reductase AdvReac Intermediate LEG Verified 03/16/23 14:12 Inhibitor CRAMPS, [Haeview-Xih-Bup Reductase FLUSHED Inhibitor] aspirin AdvReac Mild GI UPSET Verified 03/16/23 14:12 WITH PROLONGED USE Cipro AdvReac Mild GI SYMPTOMS Verified 02/24/18 21:56 ciprofloxacin AdvReac Mild GI SYMPTOMS Verified 03/16/23 14:12 irbesartan AdvReac Mild dizziness Verified 03/16/23 14:12 NSAIDS (Non-Steroidal AdvReac Mild Gastrointestinal Verified 03/16/23 14:12 Anti-Inflamma Upset ranitidine AdvReac Mild TIRED Verified 03/16/23 14:12 Home Medications Medication Instructions Recorded Confirmed Type famotidine 20 mg tablet (Pepcid) 20 mg PO QAM 07/26/19 03/16/23 History metoprolol succinate 25 mg 25 mg PO QAM 08/07/19 04/11/23 History tablet,extended release 24 hr (Toprol XL) aspirin 81 mg tablet,delayed 81 mg PO Q OTHER DAY 02/20/20 03/16/23 History release (Adult Low Dose Aspirin) chlorthalidone 25 mg tablet 25 mg PO Q OTHER DAY 07/30/20 04/11/23 History irbesartan 150 mg tablet 150 mg PO HS 07/30/20 04/11/23 History cholecalciferol (vitamin D3) 50 2,000 unit PO BID 08/23/20 03/16/23 History mcg (2,000 unit) tablet (Vitamin D3) nitroglycerin 0.4 mg sublingual 0.4 mg sublingual Q5M PRN chest 07/30/22 04/11/23 Rx tablet pain #30 tabs azelastine 205.5 mcg (0.15 %) 1 spray intranasal QPM 12/21/22 03/16/23 History nasal spray (Astepro Allergy) albuterol sulfate 90 mcg/actuation 2 puff inhalation QID PRN SOB 01/04/23 04/11/23 History aerosol inhaler cetirizine 10 mg tablet 10 mg PO DAILY PRN ALLERGY RELIEF 01/04/23 03/16/23 History ezetimibe 10 mg tablet (Zetia) 10 mg PO QAM #90 tabs 02/19/23 04/11/23 Rx colestipol 1 gram tablet 1 g PO BID 03/09/23 04/11/23 History guaifenesin 1,200 mg tablet, 1,200 mg PO Q12H 03/09/23 03/16/23 History extended release 12 hr (Mucinex) budesonide-formoterol HFA 160 2 puff inhalation BID 04/11/23 04/11/23 History mcg-4.5 mcg/actuation aerosol inhaler (Symbicort) fluticasone propionate 50 2 spray intranasal QAM 04/11/23 04/11/23 History mcg/actuation nasal spray,suspension montelukast 10 mg tablet 10 mg PO DAILY 04/11/23 04/11/23 History pantoprazole 20 mg tablet,delayed 20 mg PO DAILY 04/11/23 04/11/23 History release azithromycin 250 mg tablet 500 mg PO QAM #5 tabs 04/13/23 Rx cefdinir 300 mg capsule 300 mg PO BID 10 days #20 caps 04/13/23 Rx Past Med/Surg History Medical History (Updated 04/11/23 @ 09:18 by Gamal Brand MD) Anxiety 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 Chronic cough Diarrhea intermittent x 6 mos, reason for upcoming procedure Diverticulosis Dyslipidemia Severe adverse reaction to statins Empyema of lung Enlarged prostate hx GERD (gastroesophageal reflux disease) HTN (hypertension) Intercostal neuralgia Interstitial lung disease 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 Pulmonary nodules Surgical History H/O hand surgery RIGHT X 2-S/P INJURY History of ankle surgery RIGHT ACHILLES History of cardiac cath 2016 1 STENT-NO ISSUES SINCE F/U DR GARCIA History of colonoscopy History of discectomy LUMBAR History of esophagogastroduodenoscopy (EGD) History of excision of pilonidal cyst History of herniorrhaphy R/L GROIN History of repair of rotator cuff LEFT X 4/RIGHT X 1 History of tonsillectomy Hx laparoscopic cholecystectomy 2017 [facility] Nausea and vomiting after administration of anesthetic agent Status post lung surgery (08/10/19) Right Video Assisted Thoracoscopy with Decortication(Right) RUL wedge biopsy Dr. Huntley 08/10/19 Family History Father , Alcohol abuse led to his at 69. No problems noted. Mother , at 96 and was functional up to her . No problems noted. Family/Other Family hx of colon cancer NEPHEW Other No family history of adverse response to anesthesia No significant family history Social History Smoking Status: Former smoker Tobacco Type: Cigarettes Age Started Using Tobacco: 17; Age Quit Using Tobacco: 21; packs per day: 1; Cigarettes Per Day: quit 1971; Second Hand Exposure: No; Do You Dip or Chew Tobacco: No; Hx Alcohol Use: Yes Alcohol type: beer Hx Substance Use: No Preferred Language: Moldovan Communication Ability: Effective Visual Impairment: No Limitations Hearing Ability: Normal Site Controller Required: No Beliefs That Will Affect Care: None marital status: / Current Living Situation: Alone current occupational status: retired 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 [employer] Feels Safe at Home: Yes Assistive Devices: None Review of Systems Review of Systems: Mod distress and fatigue no headache, no visual changes no speech or swallowing issues persistent chest pain, right lower reducible with no pressure or palpitations baseline typical shortness of breath, chronic daily cough chronic right upper quadrant abdominal pain, mild nausea with vomiting, some resolved diarrhea typical dysuria, but no hematuria or frequency no focal joint pain or swelling no back pain, CVA tenderness or radicular pain no bruising, bleeding or rashes no focal signs of weakness or numbness or altered sensation no complaints of anxiety or depression.. Results & Data Results & Data Vital Signs (Past 12 Hours) Vital Signs Temp Pulse Pulse Resp BP Pulse Ox O2 Del Method 04/13/23 08:00 Room Air 04/13/23 07:38 36.5 C 63 19 112/72 97 Room Air 04/13/23 07:00 67 04/13/23 03:58 36.6 C 70 18 110/65 94 Room Air 04/13/23 01:16 69 04/12/23 23:00 36.8 C 70 18 109/60 96 Room Air Code Status & VTE Plan VTE Prophylaxis Plan VTE Prophylaxis will be ordered: Yes PG Care Time/CCT Total # of Minutes Spent Total Time Spent with Patient: Total time spent is greater than 50% in coordination of care (as documented) at patient's floor/unit and/or counseling patient: Coding Level of Care Code 62471 INT INP/OBS CARE 2/55MIN Diagnoses Pneumonia J18.9 CAD in [place] artery I25.10
== END 2023-04-13 14:15 | disposition home or self-care (01) | DRG 193 ==
LOC: ED 06:58 → 2N 09:37 → SUATTDRO 09:37 → 2N 10:15

== ENCOUNTER 2025-06-22 20:23 | Inpatient (IN) ==
[2025-06-22] MEDS: SODIUM CHLORIDE 0.9% 500 ML IV ONE (20:36)
[2025-06-22 20:46] LABS: Hematocrit (blood only) 45.6 % (42.0-52.0); Hemoglobin 15.9 g/dl (14.0-18.0); Immature Granulocytes # (auto) 0.02 K/uL (0.01-0.20); Immature Granulocytes % (auto) 0.2 %; Mean Corpuscular Hemoglobin 32.1 pg (25.0-34.0); Mean Corpuscular Volume 91.9 fL (80.0-100.0); Platelet Count 159 K/uL (130-400); RDW Standard Deviation 42.5 fL (36.4-46.3); Red Blood Count 4.96 M/uL (4.70-6.10); White Blood Count 9.58 K/ul (4.8-10.8)
[2025-06-22 21:06] LABS: Alanine Aminotransferase 30.0 U/L (7-52); Albumin Globulin Ratio 1.0 (0.9-2); Albumin Level 3.5 gm/dl (3.4-5.0); Alkaline Phosphatase 47.0 U/L (34-104); Anion Gap 10.0 (3-11); Bilirubin,Total 0.4 mg/dl (0.2-1.0); Blood Urea Nitrogen 18.0 mg/dl (6-23); Calcium 9.2 mg/dl (8.6-10.3); Carbon Dioxide 25.0 mmol/L (21-32); Chloride 102.0 mmol/L (98-107); Creatinine Clr Calc Pharmacy 57.4 ml/min; Globulin 3.6 gm/dl (2.5-4.0); Glucose 110.0 mg/dl (70-99(Fasting)); Lipase 158.0 U/L (11-82); Magnesium 2.0 mg/dl (1.7-2.4); Potassium 4.1 mmol/L (3.5-5.1); Sodium 137.0 mmol/L (136-145); Total Protein 7.1 gm/dl (6.0-8.3)
--- NOTE | 2025-06-22 21:23 | Emergency Department Note ---
Impression & Plan Acute and chronic respiratory failure, Pneumonia, Interstitial lung disease, Pulmonary embolism, New onset atrial fibrillation ED Provider Note NAME: ROBERTO GUPTA AGE: 80 SEX: M : 1945 ARRIVES VIA: Ambulance INFORMANT: Patient ED PROVIDER(S): Ezio Mireles MD CHIEF COMPLAINT: Shortness of breath, chest pain PLAN: Disposition: Admit MEDICAL DECISION MAKING: the patient is a pleasant 70-year-old gentleman with a past medical history of chronic respiratory failure with hypoxia on home oxygen, interstitial lung disease on Ofev, hypertension, hyperlipidemia, CAD with history of PCI who presents to the emergency department via EMS for evaluation of worsening shortness of breath and chest tightness since 4 PM. Patient was given full dose aspirin by EMS. Patient reports he has had worsening shortness of breath over the past couple weeks with minimal exertion. He adds that there are times when he lay flat and starts to cough he cannot catch his breath. He denies any fevers. He denies any nausea or vomiting. He reports a history of empyema of his right lung in the setting of having preceding cholecystitis remotely. On evaluation the patient is fatigued appearing but no distress, afebrile with a heart rate in the 90s in atrial fibrillation and vital signs otherwise stable. He appears clinically dry. He exhibits intermittent wheeze of bilateral lung gallegos with mild rhonchi of the right lower lung gallegos with normal respiratory effort. EKG demonstrates atrial fibrillation which does appear to be new. No acute ischemia. Chest x-ray demonstrates airspace opacities predominately of the right lung gallegos which is suspicious for pneumonia per my preliminary independent interpretation. WBC, H/H and platelets within normal limits. Chemistry without metabolic acidosis. Initial lactic acid 2.8 however improved to 2.0, within normal limits following IV fluid hydration. LFTs unremarkable. High-sensitivity troponin 10.2, within normal limits. BNP within normal limits. Lipase is mildly above normal and nonspecific. Procalcitonin is not elevated. MRSA screen was negative. CTA of the chest and CT of the abd pelvis were performed. Per my preliminary independent or potation CT findings further demonstrate right greater than left airspace opacities in the setting of the patient's pulmonary fibrosis. Blood cultures were obtained and empiric antibiotics initiated with IV Zosyn and vancomycin. DuoNeb as well as flutter valve ordered for mobilization of congestion. Patient agrees with plan for admission for further management. Case was discussed with Dr. Rosales [facility] hospitalist, who will evaluate the patient for admission. Heparin drip initiated due to [id number] in the setting of new onset atrial fibrillation. Patient denies any recent history of GI bleeding or bleeding otherwise. Of note, subsequently CT reports were finalized and acute subsegmental pulmonary emboli of the right lower lobe is described. Admitting team updated. Heparin changed to standard regimen with IV bolus and drip. Further management per admitting team. Triage Nursing notes reviewed and agree them. Prior/external medical records reviewed Vital Signs: reviewed Differential diagnosis: Reactive airway disease, pneumonia, pneumothorax, COPD, CHF, infections, cardiac ischemia, pulmonary embolism, musculoskeletal, gastrointestinal, as well as other pathologies. ER treatment provided: See below. Diagnostics interpreted by me: ECG: Atrial fibrillation, 89 bpm, no ectopy, incomplete right bundle-branch block, no overt ST elevation or depression, QTc 438, QRS 108. Cardiac Monitoring: An order for continuous cardiac monitoring was placed and demonstrated atrial fibrillation, 89 bpm, no ectopy. Laboratory studies: See below Imaging studies: See below Consultation(s): LORENE Harrell hospitalist. HPI: Per MDM. ROS: See above HPI for pertinent positives & negatives. A total of 10 systems reviewed and were otherwise negative. VITALS:See Below PHYSICAL EXAMINATION: GENERAL: Awake, alert, fatigued-appearing, in no distress HENT: Normocephalic, atraumatic. Oropharynx with dry mucous membranes and otherwise unremarkable. EYES: Normal conjunctiva. Sclera non-icteric. NECK: Supple. No nuchal rigidity. FROM. No JVD. RESPIRATORY: Exhibits intermittent wheeze of bilateral lung gallegos with mild rhonchi of the right lower lung gallegos with normal respiratory effort. CARDIAC: Regular rate, irregular rhythm. Extremities warm and well perfused. Pulses equal. ABDOMEN: Soft, non-distended. No tenderness to palpation. No rebound or guarding. No masses. MUSCULOSKELETAL: Chest examination reveals no tenderness. The back is symmetrical on inspection without obvious abnormality. There is no CVA tenderness to palpation. No joint edema. LOWER EXTREMITIES: Calves are equal size bilaterally and non-tender. No edema. No discoloration. NEURO: Normal sensorium. No sensory or motor deficits noted. SKIN: No rash or jaundice noted. 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 saini Dyspnea Costochondritis Encounter for pre-operative examination Subphrenic abscess Abnormal findings on diagnostic imaging of other specified body structures Diverticulosis hx Antiplatelet or antithrombotic long-term use Presence of drug-eluting stent in left circumflex coronary artery Status post lung surgery (08/10/19) Right Video Assisted Thoracoscopy with Decortication(Right) RUL wedge biopsy Dr. Huntley 08/10/19 Allergic rhinitis CAD in [place] artery drug-eluting stent left circumflex artery Chest pain Chronic cough Elevated prostate specific antigen (PSA) Former smoker Laryngopharyngeal reflux disease NUD (nonulcer dyspepsia) Right-sided chest pain Pulmonary nodules Dyslipidemia Severe adverse reaction to statins Leukocytosis HTN (hypertension) Medical History SIRS (systemic inflammatory response syndrome) hx-03/2023, caused fluid/abscess under diaphragm; had multiple sites drained previously from the same bacteria Pulmonary nodules Postinfective intercostal neuralgia right sided pain occasionally-has had nerve block in the past to "help" 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 saini (gets every 4-5 months" History of pneumonia summer 2022, no residual effects>"picked up on it quickly and taken care of" Dyslipidemia Hypertension History of diverticulosis CAD in [place] artery drug-eluting stent left circumflex artery Chronic cough Allergic rhinitis w/post nasal drip and cough History of anesthesia reaction after previous cataract sx 01/2024, pt "had a mouth so dry afterwards and into the evening, that he couldn't even swallow a cracker" Hx of basal cell carcinoma Interstitial lung disease f/u [facility]ology, dr. zazueta Enlarged prostate hx GERD (gastroesophageal reflux disease) Anxiety Empyema of lung hx; "no current infection" Surgical History Hx of left cataract extraction Status post lung surgery Right Video Assisted Thoracoscopy with Decortication(Right) RUL wedge biopsy Dr. Huntley 08/10/19 Hx of heart artery stent 2018, hospital in [facility], 1 stent; f/u dr. hanna Hx of right inguinal hernia repair Hx of left inguinal hernia repair Hx of Achilles tendon repair Hx of basal cell carcinoma excision 09/28/23, removed at [facility] dermatology>outside edge of nose History of excision of pilonidal cyst H/O hand surgery right hand 2x, 2/2 injury History of repair of rotator cuff left x4/right x1 Nausea and vomiting after administration of anesthetic agent History of tonsillectomy History of discectomy LUMBAR History of esophagogastroduodenoscopy (EGD) History of colonoscopy History of cardiac cath 2018, hospital in [facility], 1 stent; f/u dr. hanna Hx laparoscopic cholecystectomy 2018, [facility] Family History Father , Alcohol abuse led to his at 69. No problems noted. Mother , at 96 and was functional up to her . No problems noted. Family/Other Family hx of colon cancer NEPHEW Other No family history of adverse response to anesthesia No significant family history Social History Smoking Status: Former smoker Tobacco Type: Cigarettes Age Started Using Tobacco: 17; Age Quit Using Tobacco: 21; packs per day: 1; Cigarettes Per Day: quit 1971; Smoking End Date: 1971; Second Hand Exposure: Yes (hx growing up); Do You Dip or Chew Tobacco: No; Hx Alcohol Use: Yes Alcohol type: beer Hx Substance Use: No Preferred Language: Wolof Communication Ability: Effective Visual Impairment: No Limitations Hearing Ability: Normal Business Objects Analyst Required: No Beliefs That Will Affect Care: None marital status: / Current Living Situation: Alone current occupational status: retired 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 [employer] Feels Safe at Home: Yes Safety Concerns: Feels Safe At This Time Assistive Devices: Oxygen - Continuous Allergies Allergies Allergy/AdvReac Type Severity Reaction Status Date / Time niacin Allergy Severe Flushing Verified 06/22/25 22:55 [From Niaspan Extended-Release] amlodipine Allergy Intermediate severe Verified 06/22/25 22:53 swelling in ankle/feet amylase [From Pancrease] AdvReac Severe right Verified 06/22/25 22:55 sided abdominal pain lipase [From Pancrease] AdvReac Severe right Verified 06/22/25 22:55 sided abdominal pain protease [From Pancrease] AdvReac Severe right Verified 06/22/25 22:55 sided abdominal pain Ndbpijf-DAN-XsH Reductase AdvReac Intermediate LEG Verified 06/22/25 22:53 Inhibitor CRAMPS, [Hoijixl-Sqe-Cxj Reductase FLUSHED Inhibitor] aspirin AdvReac Mild GI UPSET Verified 06/22/25 22:53 WITH PROLONGED USE ciprofloxacin AdvReac Mild GI SYMPTOMS Verified 06/22/25 22:53 irbesartan AdvReac Mild dizziness Verified 06/22/25 22:53 NSAIDS (Non-Steroidal AdvReac Mild Gastrointestinal Verified 06/22/25 22:53 Anti-Inflamma Upset Home Meds Home Medications Medication Instructions Recorded Confirmed famotidine 20 mg tablet (Pepcid) 20 mg PO QAM 07/26/19 06/22/25 metoprolol succinate 25 mg 25 mg PO QAM 08/07/19 06/22/25 tablet,extended release 24 hr (Toprol XL) aspirin 81 mg tablet,delayed 81 mg PO Q2D 02/20/20 06/22/25 release (Adult Low Dose Aspirin) irbesartan 150 mg tablet 150 mg PO QAM 07/30/20 06/22/25 cholecalciferol (vitamin D3) 50 2,000 unit PO AMPM 08/23/20 06/22/25 mcg (2,000 unit) tablet (Vitamin D3) azelastine 205.5 mcg (0.15 %) 1 spray intranasal AMPM PRN 12/21/22 06/22/25 nasal spray (Astepro Allergy) allergies cetirizine 10 mg tablet 10 mg PO QAM 01/04/23 06/22/25 ibuprofen 200 mg capsule 200 mg PO QAM 06/22/25 06/22/25 nintedanib 100 mg capsule (Ofev) 100 mg PO AMPM 06/22/25 06/22/25 ondansetron HCl 4 mg tablet 4 mg PO AMPM PRN Nausea 06/22/25 06/22/25 Previous Rx's Medication Instructions Recorded nitroglycerin 0.4 mg sublingual 0.4 mg sublingual Q5M PRN chest 07/30/22 tablet pain #30 tabs Oxygen Home #1 ea 08/25/24 ezetimibe 10 mg tablet (Zetia) 10 mg PO QAM #90 tabs 01/25/25 Results & Data (ED) Vital Signs Vital Signs - 24 hr 06/22/25 20:23 06/22/25 20:25 06/22/25 20:32 Temperature 36.7 C Temperature Source Oral Pulse Rate 92 H 94 H Pulse Rate from SpO2 Sensor Respiratory Rate 24 Respiratory Effort / Characteristics Non-Labored Spontaneous Respiratory Depth Normal Blood Pressure 113/78 Blood Pressure Mean 89 Pulse Oximetry 93 89 L Oxygen Delivery Method Room Air Nasal Cannula Oxygen Flow Rate 2 Sepsis Recent Fever Within 48 Hours No Sepsis New/Unexplained Change in Mental Status N/A Sepsis Action Taken by Nursing No Action Required Oxygen Flow Rate - Titration 96 06/22/25 20:33 06/22/25 22:21 06/22/25 22:30 Temperature Temperature Source Pulse Rate 75 Pulse Rate from SpO2 Sensor 82 Respiratory Rate Respiratory Effort / Characteristics Respiratory Depth Blood Pressure 104/64 Blood Pressure Mean 77 Pulse Oximetry 96 96 Oxygen Delivery Method Nasal Cannula Nasal Cannula Oxygen Flow Rate 2 2 Sepsis Recent Fever Within 48 Hours Sepsis New/Unexplained Change in Mental Status Sepsis Action Taken by Nursing Oxygen Flow Rate - Titration Laboratory Data Attestation: I reviewed the patient's lab results. 06/22/25 20:30 06/22/25 20:30 Lab Results 06/22/25 06/22/25 06/22/25 Range/Units 20:30 21:16 22:40 WBC 9.58 (4.8-10.8) K/ul RBC 4.96 (4.70-6.10) M/uL Hgb 15.9 (14.0-18.0) g/dl Hct 45.6 (42.0-52.0) % MCV 91.9 (80.0-100.0) fL MCH 32.1 (25.0-34.0) pg MCHC 34.9 (32.0-36.0) g/dL RDW Std Deviation 42.5 (36.4-46.3) fL RDW Coeff of Carli 12.7 (11.5-14.5) % Plt Count 159 (130-400) K/uL MPV 10.1 (9.4-12.4) fL Immature Gran % (Auto) 0.2 % Neut % (Auto) 46.0 % Lymph % (Auto) 35.2 % [place] % (Auto) 12.4 % Eos % (Auto) 5.8 % Baso % (Auto) 0.4 % Neut # (Auto) 4.40 (1.40-6.50) K/uL Lymph # (Auto) 3.37 (1.20-3.40) K/uL [place] # (Auto) 1.19 H (0.11-0.59) K/uL Eos # (Auto) 0.56 H (0.00-0.50) K/uL Baso # (Auto) 0.04 (0.00-0.20) K/uL Immature Gran # (Auto) 0.02 (0.01-0.20) K/uL PT Cancelled INR Cancelled Sodium 137 (136-145) mmol/L Potassium 4.1 (3.5-5.1) mmol/L Chloride 102 (98-107) mmol/L Carbon Dioxide 25 (21-32) mmol/L Anion Gap 10 (3-11) BUN 18 (6-23) mg/dl Creatinine 1.11 (0.6-1.4) mg/dl Est Cr Clr Drug Dosing 57.4 ml/min eGFR 66.71 BUN/Creatinine Ratio 16.2 (10-20) Glucose 110 H (70-99(Fasting)) mg/dl Lactate 2.8 H* (0.4-2.0) mmol/L Calcium 9.2 (8.6-10.3) mg/dl Phosphorus 2.8 (2.5-4.9) mg/dl Magnesium 2.0 (1.7-2.4) mg/dl Total Bilirubin 0.4 (0.2-1.0) mg/dl AST 26 (13-39) U/L ALT 30 (7-52) U/L Alkaline Phosphatase 47 (34-104) U/L Troponin I High Sens 10.2 (0-20) pg/ml B-Natriuretic Peptide 79 (0-100) pg/ml Total Protein 7.1 (6.0-8.3) gm/dl Albumin 3.5 (3.4-5.0) gm/dl Globulin 3.6 (2.5-4.0) gm/dl Albumin/Globulin Ratio 1.0 (0.9-2) Lipase 158 H (11-82) U/L Procalcitonin 0.06 (0-0.5) ng/ml Nasal Screen MRSA (PCR) Negative (Negative) 06/22/25 Range/Units 22:44 WBC (4.8-10.8) K/ul RBC (4.70-6.10) M/uL Hgb (14.0-18.0) g/dl Hct (42.0-52.0) % MCV (80.0-100.0) fL MCH (25.0-34.0) pg MCHC (32.0-36.0) g/dL RDW Std Deviation (36.4-46.3) fL RDW Coeff of Carli (11.5-14.5) % Plt Count (130-400) K/uL MPV (9.4-12.4) fL Immature Gran % (Auto) % Neut % (Auto) % Lymph % (Auto) % [place] % (Auto) % Eos % (Auto) % Baso % (Auto) % Neut # (Auto) (1.40-6.50) K/uL Lymph # (Auto) (1.20-3.40) K/uL [place] # (Auto) (0.11-0.59) K/uL Eos # (Auto) (0.00-0.50) K/uL Baso # (Auto) (0.00-0.20) K/uL Immature Gran # (Auto) (0.01-0.20) K/uL PT 11.0 INR 1.0 Sodium (136-145) mmol/L Potassium (3.5-5.1) mmol/L Chloride (98-107) mmol/L Carbon Dioxide (21-32) mmol/L Anion Gap (3-11) BUN (6-23) mg/dl Creatinine (0.6-1.4) mg/dl Est Cr Clr Drug Dosing ml/min eGFR BUN/Creatinine Ratio (10-20) Glucose (70-99(Fasting)) mg/dl Lactate (0.4-2.0) mmol/L Calcium (8.6-10.3) mg/dl Phosphorus (2.5-4.9) mg/dl Magnesium (1.7-2.4) mg/dl Total Bilirubin (0.2-1.0) mg/dl AST (13-39) U/L ALT (7-52) U/L Alkaline Phosphatase (34-104) U/L Troponin I High Sens (0-20) pg/ml B-Natriuretic Peptide (0-100) pg/ml Total Protein (6.0-8.3) gm/dl Albumin (3.4-5.0) gm/dl Globulin (2.5-4.0) gm/dl Albumin/Globulin Ratio (0.9-2) Lipase (11-82) U/L Procalcitonin (0-0.5) ng/ml Nasal Screen MRSA (PCR) (Negative) Administered Medications Heparin Sodium/Dextrose (Heparin 93177 Unit/500 Ml D5w) 25,000 units in 500 mls @ 28 mls/hr IV .[id number] [facility]; Protocol Stop: 07/23/25 00:14 Last Admin: 06/23/25 01:35 Dose: 1,400 units/hr, 28 mls/hr Documented By: Co-signed By: ELSI Discontinued Medications Albuterol (Albut/Ipratrop 3mg/0.5mg Neb 3 Ml Vial) 3 ml NEB NOW STA; Protocol Stop: 06/22/25 22:34 Last Admin: 06/22/25 23:15 Dose: 3 ml Documented By: Guaifenesin (Guaifenesin 600 Mg Tabcr) 600 mg PO NOW STA Stop: 06/22/25 22:35 Last Admin: 06/22/25 23:15 Dose: 600 mg Documented By: Heparin Sodium (Porcine) (Heparin Sod (Porcine) 1000 Unit/Ml) 1 units IV NOW ONE Stop: 06/23/25 00:04 Last Admin: 06/23/25 01:34 Dose: 6,000 units Documented By: Co-signed By: ELSI Heparin Sodium/Dextrose (Heparin Iv Adult Wt-Based Standard *No* Initial Bolus Protocol) 1 each IV ONE STA; Protocol Stop: 06/22/25 22:53 Last Admin: 06/23/25 00:12 Dose: Not Given Documented By: Heparin Sodium/Dextrose (Heparin Iv Adult Wt-Based Standard W/ Initial Bolus Protocol) 1 each IV NOW STA; Protocol Stop: 06/22/25 23:49 Last Admin: 06/23/25 00:48 Dose: Not Given Documented By: BRENNON Sodium Chloride (Nss) 500 mls @ 999 mls/hr IV .Q31M ONE Stop: 06/22/25 21:01 Last Infusion: 06/22/25 21:40 Dose: Infused Documented By: Admin: 06/22/25 20:36 Dose: 999 mls/hr Documented By: ERNST Piperacillin Sod/Tazobactam Sod (Zosyn) 4.5 gm in 100 mls @ 200 mls/hr IV NOW ONE; Protocol Stop: 06/22/25 23:01 Last Infusion: 06/23/25 00:49 Dose: Infused Documented By: Admin: 06/22/25 23:15 Dose: 200 mls/hr Documented By: Vancomycin HCl 2,500 mg/ (Sodium Chloride) 550 mls @ 200 mls/hr IV NOW ONE Stop: 06/23/25 01:16 Last Admin: 06/23/25 00:39 Dose: 200 mls/hr Documented By: BRENNON Heparin Sodium/Dextrose (Heparin 85448 Unit/500 Ml D5w) 25,000 units in 500 mls @ 0.02 mls/hr IV .Q24H NORMA; Protocol Stop: 07/22/25 23:14 Last Admin: 06/23/25 00:12 Dose: Not Given Documented By: Ioversol (Optiray 320 125ml) 120 ml IV ONCE ONE Stop: 06/22/25 22:05 Last Admin: 06/22/25 22:04 Dose: 120 ml Documented By: MARCELA Imaging Data Radiologist's Impression: Chest X-Ray 06/22/25 20:29 Exam(s): XR CXR 1 VIEW EXAM: XR Chest, 1 View CLINICAL HISTORY: Reason for exam: Chest pain, nonspecific. TECHNIQUE: Frontal view of the chest. COMPARISON: 03/22/2023 FINDINGS: Lungs: Vascular congestion and bilateral interstitial opacities. More confluent airspace disease in the right lung base, atelectasis or pneumonia. Pleural space: No pneumothorax. Difficult to exclude a small right pleural effusion. Heart: Stable cardiomegaly. Bones/joints: No acute fracture. No dislocation. IMPRESSION: 1. Vascular congestion and bilateral interstitial opacities. Appearance raises concern for an pulmonary edema, with atypical infection a differential consideration. 2. More confluent airspace disease in the right lung base, atelectasis or pneumonia. Electronically signed by: Florentino August M.D. 06/22/25 22:26 PM Chest CTA 06/22/25 21:35 CR Exam(s): CTA CHEST IV Amt: 114cc opti 320 EXAM: CT Angiography Chest With Intravenous Contrast CLINICAL HISTORY: Reason for exam: sob, hypoxia, ?PNA, r/o PE. TECHNIQUE: Axial computed tomographic angiography images of the chest with intravenous contrast. CTDI is 28 mGy and DLP is 1594 mGy-cm. Automated exposure control was utilized for the study. A dose lowering technique was utilized adhering to the principles of ALARA. MIP reconstructed images were created and reviewed. COMPARISON: 12/07/2024 FINDINGS: Pulmonary arteries: Adequate pulmonary artery opacification. Enlarged main pulmonary artery consistent with pulmonary arterial hypertension. Acute subsegmental pulmonary emboli right lower lobe. Aorta: No aortic aneurysm or dissection. Lungs: Stable pulmonary fibrotic changes. No consolidation. No mass. Pleural space: No significant pleural effusion. No pneumothorax. Heart: Cardiomegaly. Coronary artery atherosclerosis. No pericardial effusion. No convincing evidence of RV strain. Bones/joints: No acute fracture. No dislocation. Soft tissues: Unremarkable. Lymph nodes: No adenopathy. Gallbladder and bile ducts: Cholecystectomy. Pneumobilia. IMPRESSION: Acute subsegmental pulmonary emboli right lower lobe. Communications: Call Doctor Pulmonary Embolism Electronically signed by: Florentino August M.D. 06/22/25 23:30 PM Abdomen/Pelvis CT 06/22/25 21:51 Exam(s): CT ABDOMEN + PELVIS With Contrast IV Amt: 114cc opti 320 EXAM: CT Abdomen and Pelvis With Intravenous Contrast CLINICAL HISTORY: Reason for exam: ?right PNA, effusion, h/o hepatobiliary infect. TECHNIQUE: Axial computed tomography images of the abdomen and pelvis with intravenous contrast. CTDI is 28 mGy and DLP is 1594 mGy-cm. Automated exposure control was utilized for the study. A dose lowering technique was utilized adhering to the principles of ALARA. CONTRAST: Patient received 114cc opti 320 of IV contrast COMPARISON: 04/11/2023 FINDINGS: Lung bases: Reported separately. ABDOMEN: Liver: Unremarkable. No mass. Gallbladder and bile ducts: Cholecystectomy and pneumobilia suggesting previous sphincterotomy. No ductal dilation. Pancreas: Unremarkable. No mass. No ductal dilation. Spleen: Unremarkable. No splenomegaly. Adrenals: Unremarkable. No mass. Kidneys and ureters: Simple right kidney cyst; no follow-up indicated. Symmetric renal enhancement. No hydronephrosis. Stomach and bowel: Diverticulosis without diverticulitis. No bowel obstruction. PELVIS: Appendix: Normal appendix. Bladder: Decompressed urinary bladder. Reproductive: Mild prostatomegaly. ABDOMEN and PELVIS: Intraperitoneal space: Chronic scarring/thickening in the right sub diaphragmatic region, corresponding to site of previously seen fluid collection. No free air or significant free fluid. Bones/joints: Degenerative change in the lumbar spine. No acute fracture. No dislocation. Soft tissues: Unremarkable. Vasculature: Atherosclerosis. No abdominal aortic aneurysm. Lymph nodes: Unremarkable. No enlarged lymph nodes. IMPRESSION: No acute findings in the abdomen or pelvis. Electronically signed by: Florentino August M.D. 06/22/25 23:33 PM Discharge Plan Visit Data Chief Complaint: Chest Pain Stated Complaint: Chest Pain, Hypotension ED Provider: Ezio Mireles Discharge Problem: Acute and chronic respiratory failure, Pneumonia, Interstitial lung disease, Pulmonary embolism, New onset atrial fibrillation Patient Disposition: Admitted As Inpatient Condition: Fair Discharge Instructions Interventions: ED Discharge Assessment Last Done: 06/23/25 02:45 Discharge Problem: Acute and chronic respiratory failure Qualifiers: Respiratory failure complication: unspecified whether with hypoxia or hypercapnia Qualified Code(s): J96.20 - Acute and chronic respiratory failure, unspecified whether with hypoxia or hypercapnia Pneumonia Qualifiers: Pneumonia type: due to unspecified organism Laterality: right Lung location: l ower lobe of lung Qualified Code(s): J18.9 - Pneumonia, unspecified organism Pulmonary embolism Qualifiers: Pulmonary embolism type: unspecified Chronicity: acute Acute cor pulmonale presence: unspecified Qualified Code(s): I26.99 - Other pulmonary embolism without acute cor pulmonale
[2025-06-22] MEDS: OPTIRAY 320 125ml IV ONE (22:04)
--- NOTE | 2025-06-22 22:27 | XRay Report ---
Exam(s): XR CXR 1 VIEW EXAM: XR Chest, 1 View CLINICAL HISTORY: Reason for exam: Chest pain, nonspecific. TECHNIQUE: Frontal view of the chest. COMPARISON: 03/22/2023 FINDINGS: Lungs: Vascular congestion and bilateral interstitial opacities. More confluent airspace disease in the right lung base, atelectasis or pneumonia. Pleural space: No pneumothorax. Difficult to exclude a small right pleural effusion. Heart: Stable cardiomegaly. Bones/joints: No acute fracture. No dislocation. IMPRESSION: 1. Vascular congestion and bilateral interstitial opacities. Appearance raises concern for an pulmonary edema, with atypical infection a differential consideration. 2. More confluent airspace disease in the right lung base, atelectasis or pneumonia. Electronically signed by: Florentino August M.D. 06/22/25 22:26 PM
[2025-06-22] MEDS ORDERED: VANCOMYCIN CONSULT ACTIVE PRN (22:32)
--- NOTE | 2025-06-22 23:13 | History & Physical Report ---
Date of Service June 22, 2025 Assessment & Plan (1) Atrial fibrillation: (2) Pulmonary embolism: (3) Interstitial lung disease: (4) CAD in [place] artery: (5) HTN (hypertension): (6) Dyslipidemia: Plan 80-year-old male with history of interstitial lung disease on intermittent supplemental oxygen, hypertension, hyperlipidemia, coronary artery disease presenting with 2 weeks of progressive dyspnea and increased oxygen requirement, episode of palpitations and chest tightness episode of palpitations and chest tightness today. Patient noted to be in A-fib with RVR by EMS. Appears to be in A-fib on monitor as well, irregularly irregular rhythm on auscultation. Formal EKG pending #Atrial fibrillationnew onset - rate controlled at presentcould be contributing to patient's decline in respiratory status over the last 2 weeks. No prior history of same Awaiting formal EKG which was ordered in the ER Continue heparin drip started in the ER Continue metoprolol 25 mg p.o. every morning Check 2D echo #Worsening shortness of breathuncertain if this is secondary to underlying edema, worsening interstitial lung disease. Do not strongly suspect pneumonia given normal white blood cell count, normal procalcitonin Check ESR and CRP Check sputum culture Check 2D echo Flutter valve, incentive spirometry Supplemental oxygen as needed #Interstitial lung diseasepatient reports progressive shortness of breath. Could possibly be from underlying atrial fibrillation, some volume overload suspected as well Continue Ofev 100 mg p.o. twice daily. Nonformulary, patient may need to bring this from home supplemental oxygen as needed #Hypertensionblood pressure properly controlled, presently 107/68 Continue metoprolol 25 mg p.o. daily patient on irbesartan 150 mg p.o. every morningWill give losartan 50 mg p.o. every morning while admitted #Hyperlipidemia Continue Zetia. Patient is intolerant to statins History of Present Illness Chief Complaint: hypoxia, chest pressure Primary Care Provider: DO Ray Dolan Saunders is a pleasant 80yo male presenting with palpitations and chest tightness/pressure that started this afternoon around 16:00. 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 patient [place] when he developed an episode of palpitations and chest tightness he got home when checked his oxygen level which was in the mid 80s (not uncommon for when he is ambulatory) he put his oxygen on and his saturation quickly improved to the mid 90s. However, he still did not feel well. He had bandlike pain across his chest as well as a feeling of a lump in his throat. He checked his blood pressure but the machine would not read. He then checked his heart rate and it was found to be elevated at 121 bpm. Patient reports overall progression of his shortness of breath for the last 2 weeks. He has oxygen to be used as needed but has been needing it more frequently over the last 2 weeks. Patient denies fever, chills or cough productive for purulent sputum. He does have some mild orthopnea and typically sleeps on his side. He also describes an episode of paroxysmal nocturnal dyspnea that occurred last night around 22:30. Allergies Allergy/AdvReac Type Severity Reaction Status Date / Time niacin Allergy Severe Flushing Verified 06/22/25 22:55 [From Niaspan Extended-Release] amlodipine Allergy Intermediate severe Verified 06/22/25 22:53 swelling in ankle/feet amylase [From Pancrease] AdvReac Severe right Verified 06/22/25 22:55 sided abdominal pain lipase [From Pancrease] AdvReac Severe right Verified 06/22/25 22:55 sided abdominal pain protease [From Pancrease] AdvReac Severe right Verified 06/22/25 22:55 sided abdominal pain [id number] Reductase AdvReac Intermediate LEG Verified 06/22/25 22:53 Inhibitor CRAMPS, [Ozcswel-Tow-Yfs Reductase FLUSHED Inhibitor] aspirin AdvReac Mild GI UPSET Verified 06/22/25 22:53 WITH PROLONGED USE ciprofloxacin AdvReac Mild GI SYMPTOMS Verified 06/22/25 22:53 irbesartan AdvReac Mild dizziness Verified 06/22/25 22:53 NSAIDS (Non-Steroidal AdvReac Mild Gastrointestinal Verified 06/22/25 22:53 Anti-Inflamma Upset Home Medications Medication Instructions Recorded Confirmed Type famotidine 20 mg tablet (Pepcid) 20 mg PO QAM 07/26/19 06/22/25 History metoprolol succinate 25 mg 25 mg PO QAM 08/07/19 06/22/25 History tablet,extended release 24 hr (Toprol XL) aspirin 81 mg tablet,delayed 81 mg PO Q2D 02/20/20 06/22/25 History release (Adult Low Dose Aspirin) irbesartan 150 mg tablet 150 mg PO QAM 07/30/20 06/22/25 History cholecalciferol (vitamin D3) 50 2,000 unit PO AMPM 08/23/20 06/22/25 History mcg (2,000 unit) tablet (Vitamin D3) nitroglycerin 0.4 mg sublingual 0.4 mg sublingual Q5M PRN chest 07/30/22 06/22/25 Rx tablet pain #30 tabs azelastine 205.5 mcg (0.15 %) 1 spray intranasal AMPM PRN 12/21/22 06/22/25 History nasal spray (Astepro Allergy) allergies cetirizine 10 mg tablet 10 mg PO QAM 01/04/23 06/22/25 History Oxygen Home #1 ea 08/25/24 06/22/25 Rx ezetimibe 10 mg tablet (Zetia) 10 mg PO QAM #90 tabs 01/25/25 06/22/25 Rx ibuprofen 200 mg capsule 200 mg PO QAM 06/22/25 06/22/25 History nintedanib 100 mg capsule (Ofev) 100 mg PO AMPM 06/22/25 06/22/25 History ondansetron HCl 4 mg tablet 4 mg PO AMPM PRN Nausea 06/22/25 06/22/25 History Past Med/Surg History Problem List (Updated 06/23/25 @ 03:10 by Марина Rosales DO) Atrial fibrillation Pulmonary embolism (Acute) Pneumonia (Acute) SIRS (systemic inflammatory response syndrome) (Acute) Pneumonia (Acute) Interstitial lung disease (Acute) Rib pain on right side 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 saini Dyspnea Costochondritis Encounter for pre-operative examination Subphrenic abscess Abnormal findings on diagnostic imaging of other specified body structures Diverticulosis hx Antiplatelet or antithrombotic long-term use Presence of drug-eluting stent in left circumflex coronary artery Status post lung surgery (08/10/19) Right Video Assisted Thoracoscopy with Decortication(Right) RUL wedge biopsy Dr. Huntley 08/10/19 Allergic rhinitis CAD in [place] artery drug-eluting stent left circumflex artery Chest pain Chronic cough Elevated prostate specific antigen (PSA) Former smoker Laryngopharyngeal reflux disease NUD (nonulcer dyspepsia) Right-sided chest pain Pulmonary nodules Dyslipidemia Severe adverse reaction to statins Leukocytosis HTN (hypertension) Medical History SIRS (systemic inflammatory response syndrome) hx-03/2023, caused fluid/abscess under diaphragm; had multiple sites drained previously from the same bacteria Pulmonary nodules Postinfective intercostal neuralgia right sided pain occasionally-has had nerve block in the past to "help" 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 saini (gets every 4-5 months" History of pneumonia summer 2022, no residual effects>"picked up on it quickly and taken care of" Dyslipidemia Hypertension History of diverticulosis CAD in [place] artery drug-eluting stent left circumflex artery Chronic cough Allergic rhinitis w/post nasal drip and cough History of anesthesia reaction after previous cataract sx 01/2024, pt "had a mouth so dry afterwards and into the evening, that he couldn't even swallow a cracker" Hx of basal cell carcinoma Interstitial lung disease f/u [facility] pulmonology, dr. zazueta Enlarged prostate hx GERD (gastroesophageal reflux disease) Anxiety Empyema of lung hx; "no current infection" Surgical History Hx of left cataract extraction Status post lung surgery Right Video Assisted Thoracoscopy with Decortication(Right) RUL wedge biopsy Dr. Huntley 08/10/19 Hx of heart artery stent 2018, hospital in [facility], 1 stent; f/u dr. hanna Hx of right inguinal hernia repair Hx of left inguinal hernia repair Hx of Achilles tendon repair Hx of basal cell carcinoma excision 09/28/23, removed at [facility] dermatology>outside edge of nose History of excision of pilonidal cyst H/O hand surgery right hand 2x, 2/2 injury History of repair of rotator cuff left x4/right x1 Nausea and vomiting after administration of anesthetic agent History of tonsillectomy History of discectomy LUMBAR History of esophagogastroduodenoscopy (EGD) History of colonoscopy History of cardiac cath 2018, hospital in [facility], 1 stent; f/u dr. hanna Hx laparoscopic cholecystectomy 2018, [facility] Family History Father , Alcohol abuse led to his at 69. No problems noted. Mother , at 96 and was functional up to her . No problems noted. Family/Other Family hx of colon cancer NEPHEW Other No family history of adverse response to anesthesia No significant family history Social History Smoking Status: Former smoker Tobacco Type: Cigarettes Age Started Using Tobacco: 17; Age Quit Using Tobacco: 21; packs per day: 1; Cigarettes Per Day: quit 1971; Second Hand Exposure: Yes (hx growing up); Do You Dip or Chew Tobacco: No; Hx Alcohol Use: Yes Alcohol type: beer Hx Substance Use: No Preferred Language: Amharic Communication Ability: Effective Visual Impairment: No Limitations Hearing Ability: Normal Costume Mistress Required: No Beliefs That Will Affect Care: None marital status: / Current Living Situation: Alone current occupational status: retired 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 [employer] Feels Safe at Home: Yes Assistive Devices: Glasses Review of Systems Review of Systems: All systems reviewed & are unremarkable except as noted in HPI & below Physical Exam Physical Exam: General: patient resting comfortably, NAD, non-toxic in appearance, AA&O x 4, Nasal cannula in place Skin: warm, dry, intact, no rashes or lesions HEENT: NC/AT, PERRL, EOMI, anicteric sclera, conjunctiva without injection, external ear normal to inspection and nontender, nares patent, moist mucus membranes, dentition intact, no oropharyngeal lesions, neck supple, trachea midline, no LAD, no thyromegaly, no JVD Heart: +S1/S2, irregularly irregular, no murmurs/rubs/gallops Lungs: equal air entry bilaterally, crackles present in right lung, fairly clear in the left lung Abd: +BS, soft, NT/ND, no masses/organomegaly/ascites Ext: warm, 2+ pulses in UE/LE bilaterally, no clubbing/cyanosis or edema Neuro: nonfocal, patient AA&O x 4, speech intact, no facial droop, moving all extremities on command with equal strength 5/5 Results & Data Results & Data Vital Signs (Past 12 Hours) Vital Signs Temp Pulse Resp BP Pulse Ox O2 Del Method O2 Flow Rate 06/22/25 20:33 96 Nasal Cannula 2 06/22/25 20:32 89 L Nasal Cannula 2 06/22/25 20:25 94 H 06/22/25 20:23 36.7 C 92 H 24 113/78 93 Room Air Laboratory Results Laboratory Results WBC 9.58 K/ul (4.8-10.8) 06/22/25 20:30 RBC 4.96 M/uL (4.70-6.10) 06/22/25 20:30 Hgb 15.9 g/dl (14.0-18.0) 06/22/25 20:30 Hct 45.6 % (42.0-52.0) 06/22/25 20:30 MCV 91.9 fL (80.0-100.0) 06/22/25 20:30 MCH 32.1 pg (25.0-34.0) 06/22/25 20: MCHC 34.9 g/dL (32.0-36.0) 06/22/25 20:30 RDW Std Deviation 42.5 fL (36.4-46.3) 06/22/25 20: RDW Coeff of Carli 12.7 % (11.5-14.5) 06/22/25 20:30 Plt Count 159 K/uL (130-400) 06/22/25 20:30 MPV 10.1 fL (9.4-12.4) 06/22/25 20:30 Immature Gran % (Auto) 0.2 % 06/22/25 20:30 Neut % (Auto) 46.0 % 06/22/25 20:30 Lymph % (Auto) 35.2 % 06/22/25 20:30 [place] % (Auto) 12.4 % 06/22/25 20:30 Eos % (Auto) 5.8 % 06/22/25 20:30 Baso % (Auto) 0.4 % 06/22/25 20:30 Neut # (Auto) 4.40 K/uL (1.40-6.50) 06/22/25 20: Lymph # (Auto) 3.37 K/uL (1.20-3.40) 06/22/25 20:30 [place] # (Auto) 1.19 K/uL (0.11-0.59) H 06/22/25 20:30 Eos # (Auto) 0.56 K/uL (0.00-0.50) H 06/22/25 20:30 Baso # (Auto) 0.04 K/uL (0.00-0.20) 06/22/25 20:30 Immature Gran # (Auto) 0.02 K/uL (0.01-0.20) 06/22/25 20:30 PT Cancelled 06/23/25 00:52 INR Cancelled 06/23/25 00:52 APTT Cancelled 06/23/25 00:52 PTT Ratio Cancelled 06/23/25 00:52 Sodium 137 mmol/L (136-145) 06/22/25 20:30 Potassium 4.1 mmol/L (3.5-5.1) 06/22/25 20:30 Chloride 102 mmol/L (98-107) 06/22/25 20:30 Carbon Dioxide 25 mmol/L (21-32) 06/22/25 20:30 Anion Gap 10 (3-11) 06/22/25 20:30 BUN 18 mg/dl (6-23) 06/22/25 20:30 Creatinine 1.11 mg/dl (0.6-1.4) 06/22/25 20:30 Est Cr Clr Drug Dosing 57.4 ml/min 06/22/25 20:30 eGFR 66.71 06/22/25 20:30 BUN/Creatinine Ratio 16.2 (10-20) 06/22/25 20:30 Glucose 110 mg/dl (70-99(Fasting)) H 06/22/25 20:30 Lactate 2.0 mmol/L (0.4-2.0) 06/23/25 00:02 Calcium 9.2 mg/dl (8.6-10.3) 06/22/25 20:30 Phosphorus 2.8 mg/dl (2.5-4.9) 06/22/25 20:30 Magnesium 2.0 mg/dl (1.7-2.4) 06/22/25 20:30 Total Bilirubin 0.4 mg/dl (0.2-1.0) 06/22/25 20:30 AST 26 U/L (13-39) 06/22/25 20:30 ALT 30 U/L (7-52) 06/22/25 20:30 Alkaline Phosphatase 47 U/L (34-104) 06/22/25 20:30 Troponin I High Sens 10.2 pg/ml (0-20) 06/22/25 20:30 B-Natriuretic Peptide 79 pg/ml (0-100) 06/22/25 21:16 Total Protein 7.1 gm/dl (6.0-8.3) 06/22/25 20:30 Albumin 3.5 gm/dl (3.4-5.0) 06/22/25 20:30 Globulin 3.6 gm/dl (2.5-4.0) 06/22/25 20:30 Albumin/Globulin Ratio 1.0 (0.9-2) 06/22/25 20:30 Lipase 158 U/L (11-82) H 06/22/25 20:30 Procalcitonin 0.06 ng/ml (0-0.5) 06/22/25 20:30 Nasal Screen MRSA (PCR) Negative (Negative) 06/22/25 22:40 Impressions Chest X-Ray 06/22/25 20:29 Exam(s): XR CXR 1 VIEW EXAM: XR Chest, 1 View CLINICAL HISTORY: Reason for exam: Chest pain, nonspecific. TECHNIQUE: Frontal view of the chest. COMPARISON: 03/22/2023 FINDINGS: Lungs: Vascular congestion and bilateral interstitial opacities. More confluent airspace disease in the right lung base, atelectasis or pneumonia. Pleural space: No pneumothorax. Difficult to exclude a small right pleural effusion. Heart: Stable cardiomegaly. Bones/joints: No acute fracture. No dislocation. IMPRESSION: 1. Vascular congestion and bilateral interstitial opacities. Appearance raises concern for an pulmonary edema, with atypical infection a differential consideration. 2. More confluent airspace disease in the right lung base, atelectasis or pneumonia. Electronically signed by: Florentino August M.D. 06/22/25 22:26 PM Chest CTA 06/22/25 21:35 CR Exam(s): CTA CHEST IV Amt: 114cc opti 320 EXAM: CT Angiography Chest With Intravenous Contrast CLINICAL HISTORY: Reason for exam: sob, hypoxia, ?PNA, r/o PE. TECHNIQUE: Axial computed tomographic angiography images of the chest with intravenous contrast. CTDI is 28 mGy and DLP is 1594 mGy-cm. Automated exposure control was utilized for the study. A dose lowering technique was utilized adhering to the principles of ALARA. MIP reconstructed images were created and reviewed. COMPARISON: 12/07/2024 FINDINGS: Pulmonary arteries: Adequate pulmonary artery opacification. Enlarged main pulmonary artery consistent with pulmonary arterial hypertension. Acute subsegmental pulmonary emboli right lower lobe. Aorta: No aortic aneurysm or dissection. Lungs: Stable pulmonary fibrotic changes. No consolidation. No mass. Pleural space: No significant pleural effusion. No pneumothorax. Heart: Cardiomegaly. Coronary artery atherosclerosis. No pericardial effusion. No convincing evidence of RV strain. Bones/joints: No acute fracture. No dislocation. Soft tissues: Unremarkable. Lymph nodes: No adenopathy. Gallbladder and bile ducts: Cholecystectomy. Pneumobilia. IMPRESSION: Acute subsegmental pulmonary emboli right lower lobe. Communications: Call Doctor Pulmonary Embolism Electronically signed by: Florentino August M.D. 06/22/25 23:30 PM Abdomen/Pelvis CT 06/22/25 21:51 Exam(s): CT ABDOMEN + PELVIS With Contrast IV Amt: 114cc opti 320 EXAM: CT Abdomen and Pelvis With Intravenous Contrast CLINICAL HISTORY: Reason for exam: ?right PNA, effusion, h/o hepatobiliary infect. TECHNIQUE: Axial computed tomography images of the abdomen and pelvis with intravenous contrast. CTDI is 28 mGy and DLP is 1594 mGy-cm. Automated exposure control was utilized for the study. A dose lowering technique was utilized adhering to the principles of ALARA. CONTRAST: Patient received 114cc opti 320 of IV contrast COMPARISON: 04/11/2023 FINDINGS: Lung bases: Reported separately. ABDOMEN: Liver: Unremarkable. No mass. Gallbladder and bile ducts: Cholecystectomy and pneumobilia suggesting previous sphincterotomy. No ductal dilation. Pancreas: Unremarkable. No mass. No ductal dilation. Spleen: Unremarkable. No splenomegaly. Adrenals: Unremarkable. No mass. Kidneys and ureters: Simple right kidney cyst; no follow-up indicated. Symmetric renal enhancement. No hydronephrosis. Stomach and bowel: Diverticulosis without diverticulitis. No bowel obstruction. PELVIS: Appendix: Normal appendix. Bladder: Decompressed urinary bladder. Reproductive: Mild prostatomegaly. ABDOMEN and PELVIS: Intraperitoneal space: Chronic scarring/thickening in the right sub diaphragmatic region, corresponding to site of previously seen fluid collection. No free air or significant free fluid. Bones/joints: Degenerative change in the lumbar spine. No acute fracture. No dislocation. Soft tissues: Unremarkable. Vasculature: Atherosclerosis. No abdominal aortic aneurysm. Lymph nodes: Unremarkable. No enlarged lymph nodes. IMPRESSION: No acute findings in the abdomen or pelvis. Electronically signed by: Florentino August M.D. 06/22/25 23:33 PM ECG Additional Comments: ordered. Pending. PG Care Time/CCT Total # of Minutes Spent Total Time Spent with Patient: Total time spent is greater than 50% in coordination of care (as documented) at patient's floor/unit and/or counseling patient: Coding Level of Care Code 29143 INT INP/OBS CARE 3/75MIN Diagnoses Atrial fibrillation I48.91 Pulmonary embolism I26.99 Interstitial lung disease J84.9 CAD in [place] artery I25.10 HTN (hypertension) I10 Dyslipidemia E78.5
[2025-06-22] MEDS: guaiFENesin 600 MG TABCR PO STA (23:15)
[2025-06-22] MEDS: ALBUT/IPRATROP 3MG/0.5MG NEB 3 ML VIAL NEB STA (23:15)
[2025-06-22] MEDS: PIPERACILLIN/TAZOBACTAM 4.5 GM/100 ML BAG IV ONE (23:15)
--- NOTE | 2025-06-22 23:31 | CT Scan Report ---
Exam(s): CTA CHEST IV Amt: 114cc opti 320 EXAM: CT Angiography Chest With Intravenous Contrast CLINICAL HISTORY: Reason for exam: sob, hypoxia, ?PNA, r/o PE. TECHNIQUE: Axial computed tomographic angiography images of the chest with intravenous contrast. CTDI is 28 mGy and DLP is 1594 mGy-cm. Automated exposure control was utilized for the study. A dose lowering technique was utilized adhering to the principles of ALARA. MIP reconstructed images were created and reviewed. COMPARISON: 12/07/2024 FINDINGS: Pulmonary arteries: Adequate pulmonary artery opacification. Enlarged main pulmonary artery consistent with pulmonary arterial hypertension. Acute subsegmental pulmonary emboli right lower lobe. Aorta: No aortic aneurysm or dissection. Lungs: Stable pulmonary fibrotic changes. No consolidation. No mass. Pleural space: No significant pleural effusion. No pneumothorax. Heart: Cardiomegaly. Coronary artery atherosclerosis. No pericardial effusion. No convincing evidence of RV strain. Bones/joints: No acute fracture. No dislocation. Soft tissues: Unremarkable. Lymph nodes: No adenopathy. Gallbladder and bile ducts: Cholecystectomy. Pneumobilia. IMPRESSION: Acute subsegmental pulmonary emboli right lower lobe. Communications: Call Doctor Pulmonary Embolism Electronically signed by: Florentino August M.D. 06/22/25 23:30 PM
--- NOTE | 2025-06-22 23:34 | CT Scan Report ---
Exam(s): CT ABDOMEN + PELVIS With Contrast IV Amt: 114cc opti 320 EXAM: CT Abdomen and Pelvis With Intravenous Contrast CLINICAL HISTORY: Reason for exam: ?right PNA, effusion, h/o hepatobiliary infect. TECHNIQUE: Axial computed tomography images of the abdomen and pelvis with intravenous contrast. CTDI is 28 mGy and DLP is 1594 mGy-cm. Automated exposure control was utilized for the study. A dose lowering technique was utilized adhering to the principles of ALARA. CONTRAST: Patient received 114cc opti 320 of IV contrast COMPARISON: 04/11/2023 FINDINGS: Lung bases: Reported separately. ABDOMEN: Liver: Unremarkable. No mass. Gallbladder and bile ducts: Cholecystectomy and pneumobilia suggesting previous sphincterotomy. No ductal dilation. Pancreas: Unremarkable. No mass. No ductal dilation. Spleen: Unremarkable. No splenomegaly. Adrenals: Unremarkable. No mass. Kidneys and ureters: Simple right kidney cyst; no follow-up indicated. Symmetric renal enhancement. No hydronephrosis. Stomach and bowel: Diverticulosis without diverticulitis. No bowel obstruction. PELVIS: Appendix: Normal appendix. Bladder: Decompressed urinary bladder. Reproductive: Mild prostatomegaly. ABDOMEN and PELVIS: Intraperitoneal space: Chronic scarring/thickening in the right sub diaphragmatic region, corresponding to site of previously seen fluid collection. No free air or significant free fluid. Bones/joints: Degenerative change in the lumbar spine. No acute fracture. No dislocation. Soft tissues: Unremarkable. Vasculature: Atherosclerosis. No abdominal aortic aneurysm. Lymph nodes: Unremarkable. No enlarged lymph nodes. IMPRESSION: No acute findings in the abdomen or pelvis. Electronically signed by: Florentino August M.D. 06/22/25 23:33 PM
[2025-06-22 23:51] LABS: INR 1.0 (0.9-1.1); Prothrombin Time 11.0 Seconds (9.0-12.0)
[2025-06-23] MEDS: Heparin IV Adult Wt-Based Standard *NO* INITIAL Bolus Protocol IV STA (00:12)
[2025-06-23] MEDS: HEPARIN 25000 UNIT/500 ML D5W 25,000 UNITS/500 ML BAG IV SCH ×2 (00:12→01:35)
[2025-06-23] MEDS: VANCOMYCIN HCL 2,500 MG in SODIUM CHLORIDE 0.9% 500 ML IV ONE (00:39)
[2025-06-23] MEDS: Heparin IV Adult Wt-Based Standard w/ INITIAL Bolus Protocol IV STA (00:48)
[2025-06-23] MEDS: HEPARIN SOD (PORCINE) 1000 UNIT/ML IV ONE (01:34)
[2025-06-23] MEDS ORDERED: ACETAMINOPHEN 325 MG TAB PO PRN (03:24)
[2025-06-23] MEDS ORDERED: DOCUSATE SODIUM 100 MG CAP PO PRN (03:24)
[2025-06-23] MEDS ORDERED: MELATONIN 3 MG TAB PO PRN (03:24)
[2025-06-23] MEDS ORDERED: ONDANSETRON INJ 2 MG/ML 2 ML VIAL IV PRN (03:24)
[2025-06-23 03:35] LABS: INR 1.2 (0.9-1.1); Prothrombin Time 12.2 Seconds (9.0-12.0)
[2025-06-23 03:39] LABS: Partial Thromboplastin Time > 139 Seconds (21-31)
[2025-06-23] MEDS ORDERED: INFLUENZA VACC TS2025-26(65y+)/PF (IIV3) 0.5mL Syr IM ONE (03:56)
[2025-06-23] MEDS: ASPIRIN 81 MG ECTAB PO SCH ×2 (05:10→09:22)
[2025-06-23 08:10] LABS: Hematocrit (blood only) 43.2 % (42.0-52.0); Hemoglobin 14.8 g/dl (14.0-18.0); Mean Corpuscular Hemoglobin 32.1 pg (25.0-34.0); Mean Corpuscular Volume 93.7 fL (80.0-100.0); Platelet Count 123 K/uL (130-400); RDW Standard Deviation 44.1 fL (36.4-46.3); Red Blood Count 4.61 M/uL (4.70-6.10); White Blood Count 8.56 K/ul (4.8-10.8)
[2025-06-23 08:30] LABS: Anion Gap 6.0 (3-11); Blood Urea Nitrogen 18.0 mg/dl (6-23); Calcium 8.5 mg/dl (8.6-10.3); Carbon Dioxide 25.0 mmol/L (21-32); Chloride 105.0 mmol/L (98-107); Creatinine Clr Calc Pharmacy 68.1 ml/min; Glucose 124.0 mg/dl (70-99(Fasting)); Potassium 4.4 mmol/L (3.5-5.1); Sodium 136.0 mmol/L (136-145)
[2025-06-23 08:32] LABS: ANTI-Xa, UFH(UnfractionatedHep 0.63 IU/ml (0.3-0.7)
[2025-06-23 09:09] LABS: Thyroid Stimulating Hormone 2.162 uIu/ml (0.300-4.500)
--- NOTE | 2025-06-23 09:15 | Hospitalist Progress Note ---
Date of Service June 23, 2025 Assessment & Plan (1) Atrial fibrillation: (2) Pulmonary embolism: (3) Interstitial lung disease: (4) CAD in [place] artery: (5) HTN (hypertension): (6) Dyslipidemia: Plan 80-year-old male with history of interstitial lung disease on intermittent supplemental oxygen, hypertension, hyperlipidemia, coronary artery disease presenting with 2 weeks of progressive dyspnea and increased oxygen requirement, episode of palpitations and chest tightness episode of palpitations and chest tightness today. Patient noted to be in A-fib with RVR by EMS. Appears to be in A-fib on monitor as well, irregularly irregular rhythm on auscultation. Formal EKG pending #RLL Acute subsegmental pulmonary emboli - pt denied h/o cancer (does have colon polyps), long travel, sedentary lifestyle, recent surgery, family history of clots - cont heparin gtt - LE duplex negative for DVT - ECHO w/o RHC - cont hep gtt, transition to Eliquis at the time of discharge #Atrial fibrillationnew onset - rate controlled at presentcould be contributing to patient's decline in respiratory status over the last 2 weeks along with new PE. No prior history of same - CHADS2 Vasc: 4 (age: +2, HTn, h/o CAD / [place]) - cont metoprolol, cont hep gtt - ECHO without acute abnormality - d/c on eliquis (PE protocol), with outpatient follow up with cardiology #Worsening shortness of breathuncertain if this is secondary to underlying edema, worsening interstitial lung disease. Do not strongly suspect pneumonia given normal white blood cell count, normal procalcitonin ESR: 12 and CRP: 1.03 - BCx pending - Sputum cx ordered - ECHO as above Flutter valve, incentive spirometry Supplemental oxygen as needed #Interstitial lung diseasepatient reports progressive shortness of breath. Could possibly be from underlying atrial fibrillation, some volume overload suspected as well Continue Ofev 100 mg p.o. twice daily. Nonformulary, patient may need to bring this from home (discussed epistaxis as side effect, now especially in the setting of AC) supplemental oxygen as needed, pt reports no oxygen at full rest, but need oxygen even for minimal activity and he uses about 2L - currently on 4L, wean down to baseline, will need ambulatory pulse ox prior to discharge #Hypertensionblood pressure properly controlled, presently 107/68 Continue metoprolol 25 mg p.o. daily patient on irbesartan 150 mg p.o. every morningWill give losartan 50 mg p.o. every morning while admitted #Hyperlipidemia Continue Zetia. Patient is intolerant to statins #DVT ppx: on hep gtt #Dispo: tentative d/c on 06/24/25 Admission and Anticipated Discharge Date Admission Date: June 22, 2025 Subjective Admitted overnight Currently no new complaints Review of Systems Review of Systems: Comprehensive ROS completed and is otherwise negative. Physical Exam Physical Exam: Gen: no acute distress, sitting at the edge of bed comfortable HEENT: NC/AT, MMM Lungs: nonlabored breathing, fine crackles throughout all lung gal[place] CVS: s1s2nl, RRR Abd: nl bowel sounds, soft, NT / ND : no smith Ext: no edema Neuro: AAOx3 Psych: calm, cooperative Results & Data Results & Data Vital Signs (Past 12 Hours) Vital Signs Temp Pulse Pulse Resp BP BP Pulse Ox 06/23/25 07:55 36.6 C 64 20 119/72 95 06/23/25 03:50 06/23/25 03:43 36.7 C 70 18 124/73 92 06/23/25 02:45 06/23/25 02:21 61 23 96 06/23/25 02:00 107/68 06/23/25 00:39 69 22 93 06/23/25 00:30 106/64 06/22/25 23:48 66 19 94 06/22/25 23:30 101/67 06/22/25 22:30 104/64 06/22/25 22:21 75 96 O2 Del Method O2 Flow Rate 06/23/25 07:55 Nasal Cannula 2 06/23/25 03:50 Nasal Cannula 2 06/23/25 03:43 Nasal Cannula 2 06/23/25 02:45 Nasal Cannula 2 06/23/25 02:21 Nasal Cannula 2 06/23/25 02:00 06/23/25 00:39 Nasal Cannula 2 06/23/25 00:30 06/22/25 23:48 Nasal Cannula 2 06/22/25 23:30 06/22/25 22:30 06/22/25 22:21 Nasal Cannula 2 PG Care Time/CCT Total # of Minutes Spent Total Time Spent with Patient: Total time spent is greater than 50% in coordination of care (as documented) at patient's floor/unit and/or counseling patient: Coding Level of Care Code 97043 SUB INP/OBS CARE MIN Diagnoses Atrial fibrillation I48.91 Pulmonary embolism I26.99 Acute cor pulmonale presence: unspecified Chronicity: acute Pulmonary embolism type: unspecified Interstitial lung disease J84.9 CAD in [place] artery I25.10 HTN (hypertension) I10 Dyslipidemia E78.5 (2) Pulmonary embolism Acute cor pulmonale presence: unspecified Chronicity: acute Pulmonary embolism type: unspecified Qualified Code(s): I26.99 - Other pulmonary embolism without acute cor pulmonale
[2025-06-23] MEDS: CETIRIZINE HCL 10 MG TABLET PO SCH (09:22)
[2025-06-23] MEDS: EZETIMIBE 10 MG TAB PO SCH (09:22)
[2025-06-23] MEDS: LOSARTAN POTASSIUM 50 MG TAB PO SCH (09:22)
[2025-06-23] MEDS: METOPROLOL SUCC 25MG EXT REL TAB PO SCH (09:22)
[2025-06-23] MEDS: FAMOTIDINE 20 MG TAB PO SCH (09:24)
--- NOTE | 2025-06-23 11:54 | Electrocardiogram Report ---
Test Reason : Blood Pressure : */* mmHG Vent. Rate : 59 BPM Atrial Rate : 59 BPM P-R Int : 216 ms QRS Dur : 108 ms QT Int : 440 ms P-R-T Axes : 36 -18 5 degrees QTcB Int : 435 ms Sinus bradycardia with 1st degree A-V block with Premature atrial complexes Incomplete right bundle branch block Inferior infarct , age undetermined Abnormal ECG When compared with ECG of 11-Apr-2023 07:22, Premature atrial complexes are now Present NM interval has increased Inferior infarct is now Present Confirmed by Miguel Ángel Garcia ([id number]) on 06/23/2025 11:54:26 AM Referred By: REFERRED SELF Confirmed By: Miguel Ángel Garcia
--- NOTE | 2025-06-23 12:25 | XCELERA ---
[id number] \\[email or web address]\[id number]
--- NOTE | 2025-06-23 14:15 | Ultrasound Report ---
Technique: Venous ultrasound evaluation was performed utilizing grayscale, color Doppler and wave form evaluation. Images were also obtained with and without compression Findings: The bilateral common femoral, superficial femoral, popliteal, and visualized calf veins demonstrate normal anechoic lumens with full compressibility. Normal flow is seen on color Doppler images. Expected waveforms were produced with augmentation maneuvers Impression: No evidence of deep venous thrombosis Electronically signed by Parish Pimentel 06-23-2025 2:14 PM
[2025-06-24 05:55] LABS: Hematocrit (blood only) 45.7 % (42.0-52.0); Hemoglobin 15.6 g/dl (14.0-18.0); Mean Corpuscular Hemoglobin 32.0 pg (25.0-34.0); Mean Corpuscular Volume 93.8 fL (80.0-100.0); Platelet Count 132 K/uL (130-400); RDW Standard Deviation 43.5 fL (36.4-46.3); Red Blood Count 4.87 M/uL (4.70-6.10); White Blood Count 8.54 K/ul (4.8-10.8)
[2025-06-24 06:11] LABS: Anion Gap 5.0 (3-11); Blood Urea Nitrogen 14.0 mg/dl (6-23); Calcium 9.2 mg/dl (8.6-10.3); Carbon Dioxide 29.0 mmol/L (21-32); Chloride 103.0 mmol/L (98-107); Creatinine Clr Calc Pharmacy 68.1 ml/min; Glucose 127.0 mg/dl (70-99(Fasting)); Magnesium 2.1 mg/dl (1.7-2.4); Potassium 4.2 mmol/L (3.5-5.1); Sodium 137.0 mmol/L (136-145)
[2025-06-24 06:23] LABS: ANTI-Xa, UFH(UnfractionatedHep 0.57 IU/ml (0.3-0.7)
--- NOTE | 2025-06-24 11:47 | Electrocardiogram Report ---
Test Reason : Blood Pressure : */* mmHG Vent. Rate : 89 BPM Atrial Rate : * BPM P-R Int : * ms QRS Dur : 108 ms QT Int : 360 ms P-R-T Axes : * -18 26 degrees QTcB Int : 438 ms Atrial fibrillation Incomplete right bundle branch block Poor R wave progression, consider anterior [place] vs. lead placement vs. LVH Abnormal ECG When compared with ECG of 11-Apr-2023 07:22, Atrial fibrillation has replaced Sinus rhythm Incomplete right bundle branch block is now Present Borderline criteria for Anterolateral infarct are now Present Confirmed by Miguel Ángel Garcia ([id number]) on 06/24/2025 11:47:24 AM Referred By: REFERRED SELF Confirmed By: Miguel Ángel Garcia
[2025-06-24 11:55] VITALS: BP 119/73; PULSE 58; RESP 18; TEMP 97.5; O2SAT 95
--- NOTE | 2025-06-24 12:53 | Discharge Summary ---
Discharge Summary Date of Service June 24, 2025 Principal Dx & Hospital Course #1 = Principal Diagnosis (1) Atrial fibrillation: (2) Pulmonary embolism: (3) Interstitial lung disease: (4) CAD in [place] artery: (5) HTN (hypertension): (6) Dyslipidemia: Plan 80-year-old male with history of interstitial lung disease on intermittent supplemental oxygen, hypertension, hyperlipidemia, coronary artery disease presenting with 2 weeks of progressive dyspnea and increased oxygen requirement, episode of palpitations and chest tightness episode of palpitations and chest tightness today. Patient noted to be in A-fib with RVR by EMS. Appears to be in A-fib on monitor as well, irregularly irregular rhythm on auscultation. Formal EKG pending #RLL Acute subsegmental pulmonary emboli - pt denied h/o cancer (does have colon polyps), long travel, sedentary lifestyle, recent surgery, family history of clots - on heparin gtt -> transitioned to Eliquis PE protocol on discharge - LE duplex negative for DVT - ECHO w/o RHC #Atrial fibrillationnew onset - rate controlled at presentcould be contributing to patient's decline in respiratory status over the last 2 weeks along with new PE. No prior history of same - CHADS2 Vasc: 5 (age: +2, HTn, h/o CAD / [place]) - cont metoprolol - ECHO without acute abnormality - discharge on eliquis (PE protocol), with outpatient follow up with cardiology, pt will likely need long-term AC #Worsening shortness of breathuncertain if this is secondary to underlying edema, worsening interstitial lung disease. Do not strongly suspect pneumonia given normal white blood cell count, normal procalcitonin resolved ESR: 12 and CRP: 1.03 - BCx pending - Sputum cx ordered - ECHO as above Flutter valve, incentive spirometry Supplemental oxygen as needed #Interstitial lung diseasepatient reports progressive shortness of breath. Could possibly be from underlying atrial fibrillation, some volume overload suspected as well Continue Ofev 100 mg p.o. twice daily. Nonformulary, patient may need to bring this from home (discussed epistaxis as side effect, now especially in the setting of AC) supplemental oxygen as needed, pt reports no oxygen at full rest, but need oxygen even for minimal activity and he uses about 2L - currently on 4L, wean down to baseline, will need ambulatory pulse ox prior to discharge - pt will call his pharmacist as well as his mixing tank operator for further management #Hypertensionblood pressure properly controlled, presently 107/68 Continue metoprolol 25 mg p.o. daily patient on irbesartan 150 mg p.o. every morning #Hyperlipidemia Continue Zetia. Patient is intolerant to statins #Dispo: discharged home Admission HPI Per Admitting Provider Ray Saunders is a pleasant 80yo male presenting with palpitations and chest tightness/pressure that started this afternoon around 16:00. 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 patient was out driving in the [place] this afternoon when he developed an episode of palpitations and chest tightness he got home when checked his oxygen level which was in the mid 80s (not uncommon for when he is ambulatory) he put his oxygen on and his saturation quickly improved to the mid 90s. However, he still did not feel well. He had bandlike pain across his chest as well as a feeling of a lump in his throat. He checked his blood pressure but the machine would not read. He then checked his heart rate and it was found to be elevated at 121 bpm. Patient reports overall progression of his shortness of breath for the last 2 weeks. He has oxygen to be used as needed but has been needing it more frequently over the last 2 weeks. Patient denies fever, chills or cough productive for purulent sputum. He does have some mild orthopnea and typically sleeps on his side. He also describes an episode of paroxysmal nocturnal dyspnea that occurred last night around 22:30. Discharge Exam Gen: no acute distress, sitting at the edge of bed comfortable HEENT: NC/AT, MMM Lungs: nonlabored breathing, fine crackles throughout all lung [place] CVS: s1s2nl, RRR Abd: nl bowel sounds, soft, NT / ND : no smith Ext: no edema Neuro: AAOx3 Psych: calm, cooperative Discharge Plan Discharge Items Patient Disposition: Home - Self-Care Reason For Visit: SHORTNESS OF BREATH Discharge Diagnosis: Acute pulmonary embolism Condition on Discharge: Fair Activity: Resume your previous activity Non-emergency contact: Primary Care Provider and Olive Brine Tester Call non-emergency contact if: you have any medication questions and your symptoms worsen Follow-up/Referrals: Michelle Regan DO [Primary Care Provider] - Diet: Heart Healthy Addtl Attending Provider Instructions: You were admitted to the hospital for the evaluation of trouble breathing and elevated heart rate. You were found to have clot in your lung as well as atrial fibrillation. You were started on blood thinners. Refills must be ordered by your primary care doctor. Please note that if you sustain any trauma, including a fall, please notify your primary care physician. If you have a head strike, you will need to be evaluated in the nearest emergency room to ensure you don't have a brain bleed. Please follow up with your mixing tank operator for the ongoing management of your interstitial lung disease. Please follow up with your cardio logist regarding the new diagnosis of atrial fibrillation. You are medically stable for discharge. You will need to follow up with your primary care doctor in about 7 to 10 days. It was a pleasure being a part of your medical care team during your stay at [facility]. Pending Studies at Discharge: No Stand-Alone Forms: My [facility], Smoking Cessation Medications and DC Order Prescriptions: New Eliquis 5 mg (74 tabs) tablets,dose pack See Rx Instructions .ROUTE .COMPLEX Qty: 74 0RF Rx Instructions: Take 10mg (2 tablets) twice a day for 7 days followed by 5mg (1 tablet) twice a day. Continued azelastine [Astepro Allergy] 205.5 mcg (0.15 %) spray,non-aerosol 1 spray intranasal AMPM PRN (Reason: allergies) (DME) Oxygen Home Liters Per Minute See Rx Instructions .MEDSUPPLY Qty: 1 0RF Rx Instructions: Patient requesting portable oxygen concentrator for interstitial lung disease. Oxygen at 2 L/min ezetimibe [Zetia] 10 mg tablet 10 mg PO QAM Qty: 90 3RF cetirizine 10 mg tablet 10 mg PO QAM irbesartan 150 mg tablet 150 mg PO QAM famotidine [Pepcid] 20 mg tablet 20 mg PO QAM nitroglycerin 0.4 mg tablet, sublingual 0.4 mg SL Q5M PRN (Reason: chest pain) Qty: 30 0RF metoprolol succinate [Toprol XL] 25 mg tablet extended release 24 hr 25 mg PO QAM aspirin [Adult Low Dose Aspirin] 81 mg tablet,delayed release (DR/EC) 81 mg PO Q2D Patient Comments: takes in the am cholecalciferol (vitamin D3) [Vitamin D3] 50 mcg (2,000 unit) Tablet 2,000 unit PO AMPM Ofev 100 mg capsule 100 mg PO AMPM ondansetron HCl 4 mg tablet 4 mg PO AMPM PRN (Reason: Nausea) ibuprofen 200 mg Capsule 200 mg PO QAM Discharge Orders: Discharge Order (Routine); Ordered 06/24/25 Ordered By: Pam Ray Admission Data Admit Date/Time: 06/22/25 23:13 Attending Provider: Pam Ray Admit Provider: Марина Rosales Primary Care Provider: Michelle Regan Other Providers: Марина Rosales Hospital Stay Data Consultations 06/22/25 22:32 ED Decision to Admit Stat Diagnostic Imagining Performed 06/22/25 21:35 CT angio chest PE protocol Stat 06/22/25 21:51 CT abd pelvis IV con only Stat 06/23/25 12:18 US venous doppler LE BI Routine Pending Results Patient Have Any Pending Studies at Discharge: No Discharge Instructions Given to Patient (Per Discharging Provider) You were admitted to the hospital for the evaluation of trouble breathing and elevated heart rate. You were found to have clot in your lung as well as atrial fibrillation. You were started on blood thinners. Refills must be ordered by your primary care doctor. Please note that if you sustain any trauma, including a fall, please notify your primary care physician. If you have a head strike, you will need to be evaluated in the nearest emergency room to ensure you don't have a brain bleed. Please follow up with your mixing tank operator for the ongoing management of your interstitial lung disease. Please follow up with your barkeep regarding the new diagnosis of atrial fibrillation. You are medically stable for discharge. You will need to follow up with your primary care doctor in about 7 to 10 days. It was a pleasure being a part of your medical care team during your stay at [facility]. Total Time Total Time Spent Total Time Spent (In Minutes): 45 Coding Level of Care Code 47375 INP/OBS DISCH >30 MIN Diagnoses Atrial fibrillation I48.91 Pulmonary embolism I26.99 Acute cor pulmonale presence: unspecified Chronicity: acute Pulmonary embolism type: unspecified Interstitial lung disease J84.9 CAD in [place] artery I25.10 HTN (hypertension) I10 Dyslipidemia E78.5
--- NOTE | 2025-06-25 08:09 | Coding Query ---
To promote full compliance with coding requirements relating to patient care, provider participation is requested in all cases of dollyman uncertainty. Please assist us with the question(s) below: Coding Question(s): The diagnosis below was documented in the ED note, then subsequently fell off all further documentation. Please indicate if it is still a possible diagnosis or ruled out. Physician's Response(s): ACUTE AND CHRONIC RESPIRATORY FAILURE (regarding the ACUTE RESPIRATORY FAILURE - documented on ther ED Note) ( X ) Diagnosed , ( ) Ruled out ( ) Other (please specify) MTDD
--- NOTE | 2025-06-25 08:16 | Coding Query ---
CODING QUERY To promote full compliance with coding requirements relating to patient care, provider participation is requested in all cases of superintendent meters uncertainty. Please assist us with the question(s) below: Coding Question(s): Pneumonia is documented on the ED Note and the H&P, Progress Note and Discharge Summary document, "Do not strongly suspect pneumonia given normal white blood cell count, normal procalcitonin". Please specify below, in your clinical opinion, regarding Pneumonia: ( ) Possible Pneumonia was treated and/or monitored during the admission ( ) Pneumonia was Ruled-Out Physician's Response(s): Thank you Beckie Swift Principal Diagnosis: "that condition established after study, to be chiefly responsible for occasioning the admission of the patient to the hospital for care." Co-Existing Principal Diagnosis: "when two or more diagnoses equally meet the criteria for principal diagnosis as determined by the circumstances of admission, diagnostic work up, and/or therapy provided, and the Alphabetic Index, Tabular List, or another coding guideline does not provide sequencing direction, any one of the diagnoses may be sequenced first." "When the physician has documented what appears to be a current diagnosis in the body of the record, but has not included the diagnosis in the final diagnostic statement, the physician should be asked whether the diagnosis should be added." (Source Coding [facility] 2 QTR90. p3-4) MARK
== END 2025-06-24 13:28 | disposition home or self-care (01) | DRG 175 ==
LOC: ED 20:23 → 2S 23:13 → SUATTDRO 23:13 → 2S 06-23 02:45